=== PATIENT | male | born 1970 | race Caucasian/White ===

== ENCOUNTER 2021-02-26 15:55 | Inpatient (IN) | payer OTHER, SELFPAY ==
[2021-02-26] VITALS (9 sets, daily range): BP systolic 135–213; BP diastolic 70–114; PULSE 55–69; RESP 16–19; TEMP 36.2–36.9; O2SAT 96–100; BMI 52.7; BMI 51.6
--- NOTE | 2021-02-26 16:15 | EKG12_ITS ---
Test Reason : CP Blood Pressure : / mmHG Vent. Rate : 069 BPM Atrial Rate : 069 BPM P-R Int : 180 ms QRS Dur : 106 ms QT Int : 426 ms P-R-T Axes : 010 073 019 degrees QTc Int : 456 ms Normal sinus rhythm Normal ECG Confirmed by SASCHA TRUJILLO, BEL ([id number]), deputy editor in chief JORDAN PATTERSON ([id number]) on 02/28/2021 8:54:47 AM Referred By: ARELIS Confirmed By:BEL CAICEDO MD
--- NOTE | 2021-02-26 16:16 | EDS_ITS ---
HPI History of Present Illness Chief Complaint: Chest Pain Informant: patient Onset/Context/Timing Onset: Days (worse past 3-4 days, but has had episodically for some time prior to that) Activity at onset: rest (while lying supine especially; no other obvious known triggers) Timing: Intermittent Quality: Positive for Tightness (mostly, but today worse/persistent and feels like just pain) Location: Substernal Current Severity: Severe Maximum Severity: Severe Worsened By: - (lying supine); Not Worsened By Exertion, Movement of Arm, Movement of Torso, Eating, Palpation and Breathing Relieved By: - (sitting up) Associated Symptoms: Positive for Dyspnea (today only) and Acid Reflux (recently ate a turkey sandwich and tasted metallic); Negative for Nausea, Vomiting, Diaphoresis, Cough, Fever, Lightheadedness and Palpitations Narrative Narrative: Patient with history of coronary disease, when he had a stent placed 3 years ago he did have symptoms similar to this, however is having symptoms more with lying supine at night than with exertion in the last several days, and notes that when he eats spicy or greasy foods, he complains more of symptoms when he lies down. He had a remote CABG 13 years ago, and then a couple stents 3 years ago. Discomfort is nonpleuritic. Other than shortness of breath just today, he notes no other systemic symptoms. [facility] Medical History (Updated 02/26/21 @ 17:[address] Dequan Rico MD) CAD (coronary artery disease) Gout Hypertension Myocardial infarct Home Medications amlodipine 10 mg PO DAILY 09/25/16 [History Last Taken 09/25/16] aspirin 81 mg PO DAILY 09/25/16 [History Last Taken 09/25/16] hydrochlorothiazide 25 mg PO DAILY 09/25/16 [History Last Taken 09/25/16] metoprolol succinate 50 mg PO DAILY 09/25/16 [History Last Taken 09/25/16] clopidogrel 75 mg PO DAILY 02/26/21 [History Last Taken Unknown] losartan 25 mg PO BID 02/26/21 [History Last Taken 02/26/21] metformin 500 mg PO BID 02/26/21 [History Last Taken 02/26/21] potassium chloride 10 meq PO DAILY 02/26/21 [History Last Taken Unknown] rosuvastatin 40 mg PO DAILY 02/26/21 [History Last Taken Unknown] Allergy/AdvReac Type Severity Reaction Status Date / Time No Known Allergies Allergy Verified 02/26/21 15:59 Surgical History (Updated 02/26/21 @ 16:[address] Dequan Rico MD) Hx of CABG Social History (Updated 02/26/21 @ 16:[address] Dequan Rico MD) Smoking Status: Never smoker how long ago did patient quit smoking: Does not smoke cigarettes ROS ROS ED Constitutional Constitutional ED: Denies chills or fever(s) Eyes Eyes: Denies change in vision or diplopia ENT ENT ED: Denies rhinorrhea or sore throat Cardiovascular Cardiovascular: Reports chest pain; Denies palpitations Respiratory/Chest Respiratory/Chest: Reports dyspnea; Denies cough Gastrointestinal Gastrointestinal: Reports diarrhea; Denies abdominal pain, melena, nausea or vomiting Genitourinary Genitourinary ED: Denies dysuria or hematuria Musculoskeletal Musculoskeletal: Reports back pain and other Details: occasionally gets right low back pain separate from chest sx ; Denies neck pain Integumentary Denies abscess or rash Neurologic Neurologic: Denies headache(s), paresthesias or weakness Psychiatric Psychiatric: Denies anxiety or suicidal thoughts EXAM Physical Exam Const Vital Signs: 02/26/21 15:57 02/26/21 16:45 02/26/21 17:08 Temperature 97.1 F L Temperature Source Temporal Pulse Rate 69 61 Respiratory Rate 19 H 18 Respiratory Effort Normal Non-Labored Respiratory Pattern Normal Blood Pressure 213/114 H 142/71 H Blood Pressure Mean 147 94 Pulse Ox 100 97 97 Oxygen Delivery Method Room Air Room Air Room Air Positive well nourished, well developed and obese General Appearance ED: well developed and NAD Nutritional Appearance: obese HEENT Reports moist mucous membranes normocephalic and atraumatic Eyes PERRL and EOMs intact bilaterally Neck full ROM and supple Resp normal respiratory effort and clear to auscultation bilaterally Cardio regular rate, regular rhythm and no murmurs GI non-tender and non-distended GI Narrative: small reducible NT ventral hernia at lower CABG surg scar Auscultation: normoactive bowel sounds Palpation: soft Back/Spine no CVA tenderness General Back: other FROM Extremity normal to inspection General Extremety ED: Negative for edema, pulses abnormal or tenderness General Extremity: Negative for edema or pulses abnormal Neuro oriented x3, CN's II-XII intact bilaterally and no sensory deficits noted Sensorium / Orientation: awake and alert Motor Exam: strength 5/5 throughout Skin no rashes or lesions noted and no wounds Heart Score History: Slightly/Non-Suspicious ECG: Normal Age: >45 - <65 years Risk Factors: >/= 3 Risk Factors or History of CAD Troponin: >1 - <3 Normal Limit Score: 4 MDM MDM MDM Narrative Medical decision making narrative: While in the emergency department patient had a brief episode of heaviness and shortness of breath, but it was resolved before I could see him or we can get an EKG. His troponin returned abnormal, he has had these before, but given his history I think admission to the hospital for further risk ratification is most reasonable. Patient took his aspirin earlier today so that was held. Lab Data Attestation: I reviewed the patient's lab results. Labs: Laboratory Results - last 24 hr 02/26/21 02/26/21 16:30 16:30 WBC 9.8 RBC 5.20 Hgb 15.1 Hct 43.9 MCV 84.4 MCH 29.0 MCHC 34.4 RDW Std Deviation 41.5 RDW Coeff of Jolanta 13.5 Plt Count 304 MPV 10.3 Immature Gran % (Auto) 0.200 Neut % (Auto) 74.9 H Lymph % (Auto) 15.8 L [place] % (Auto) 5.8 Eos % (Auto) 2.8 Baso % (Auto) 0.5 Absolute Neuts (auto) 7.3 Absolute Lymphs (auto) 1.55 Nucleated RBC % 0 Sodium 139 Potassium 3.2 L Chloride 102 Carbon Dioxide 30.0 Anion Gap 7 BUN 14 Creatinine 1.23 Estim Creat Clear Calc 64.84 Est GFR (MDRD) Af Amer 80 Est GFR (MDRD) Non-Af 66 BUN/Creatinine Ratio 11.4 Glucose 183 H Calcium 9.3 Total Bilirubin 0.40 AST 23 ALT 31 Alkaline Phosphatase 95 Troponin I 0.139 H Total Protein 8.7 H Albumin 3.5 Globulin 5.2 H Albumin/Globulin Ratio 0.7 L Radiography Chest X-Ray - ED: 1 View, Read by ED Physician, No Acute Disease and Cardiomegaly Diagnostic Testing: Radiology Impression Chest X-Ray 02/26/21 16:31 IMPRESSION: No acute radiographic abnormalities. Cardiomegaly. Electronically Signed: Sanket Woodruff MD at 17:09 EDT Tel , Service support , EKG Initial EKG: Attestation: I personally reviewed and interpreted this EKG as follows: Interpretation: Sinus Rhythm and No Acute Injury Pattern Prior EKG tracings: available for review Prior: Unchanged Treatment and Re-Evaluation Vital Sign Attestation:: Blood pressure improved, vital signs stable Discharge Plan Dx/Rx/DC Orders Clinical Impression: Chest pain, unspecified, Elevated troponin Disposition Disposition: Acute Care Hospital [facility]
--- NOTE | 2021-02-26 16:31 | RAD_ITS ---
INDICATION: chest pain EXAMINATION/TECHNIQUE: X-RAY - XR Chest 1 View COMPARISON: 09/25/2016. FINDINGS: The lungs are clear. The heart is enlarged. Median sternotomy wires present. No pleural effusion or pneumothorax. No acute osseous abnormalities. RAD/Chest 1 View (Portable) IMPRESSION: No acute radiographic abnormalities. Cardiomegaly. Electronically Signed: Sanket Woodruff MD at 17:09 EDT Tel , Service support ,
[2021-02-26] MEDS: Mag Hydrox/Al Hydrox/Simeth 30 ML UDC PO (16:43)
[2021-02-26 16:53] LABS: Absolute Lymphocyte Count 1.55 X10^3/uL (0.83-4.51); Absolute Neutrophil Count 7.3 X10^3/uL (2.0-7.7); Basophil# 0.05 X10^3/uL; Basophil% 0.5 % (0-1); Eosinophil# 0.27 X10^3/uL; Eosinophils% 2.8 % (0-5); Hematocrit 43.9 % (40-54); Hemoglobin 15.1 g/dL (13.0-16.5); Lymphocyte # 1.55 X10^3/ul (0.83-4.51); Lymphocyte % 15.8 % (19-41); Mean Corp Hgb Conc 34.4 g/dL (32-36); Mean Corpuscular Volume 84.4 fL (80-94); Mean Platelet Vol. 10.3 fl (6.2-12.0); Monocyte# 0.57 X10^3/uL; Monocyte% 5.8 % (0-10); NRBC Flagged by Analyzer 0 % (0-5); Neutrophil # 7.34 X10^3/uL (2.7-7.7); Neutrophil % 74.9 % (47-70); Platelet Count 304 K/mm3 (150-450); RBC Distribution Width CV 13.5 % (11.6-14.6); RBC Distribution Width SD 41.5 fl (35.1-43.9); White Blood Count 9.8 K/mm3 (4.4-11.0)
[2021-02-26 17:06] LABS: ALB/GLOB Ratio 0.7 RATIO (0.9-2.4); AST(SGOT) 23 U/L (15-37); Alanine Aminotransfer ALT/SGPT 31 U/L (16-61); Albumin, Serum 3.5 g/dL (3.2-5.0); Alkaline Phosphatase 95 U/L (45-117); Anion Gap 7 (5-15); BUN 14 mg/dL (7-18); BUN/Creat Ratio 11.4 RATIO (10-20); Calcium,Total 9.3 mg/dL (8.5-10.1); Chloride 102 mmol/L (98-107); Creatinine, Serum 1.23 mg/dL (0.70-1.30); EST Glomerular Filtration Rate 66 mL/min (>60); Est Glom Filt Rate - Afr Amer 80 mL/min (>60); Estimated Creatinine Clearance 64.84 ml/min; Globulin 5.2 g/dL (2.2-4.2); Glucose 183 mg/dL (74-106); Potassium 3.2 mmol/L (3.5-5.1); Protein, Total 8.7 g/dL (6.4-8.2); Sodium Level 139 mmol/L (136-145)
--- NOTE | 2021-02-26 18:44 | HP.PCM.HOS_ITS ---
[facility] - General General Date of Admission: 02/26/21 Chief Complaint: Chest pain. HPI Narrative WILBUR QUINTEROS, is a 51 M with past medical history as mentioned above presented to the emergency room because of chest pain. Her symptoms started around 3 to 4 days ago with chest pain, retrosternal chest pain, intermittent, described as chest heaviness, 4-5 out of 10 in severity, associated with mild shortness of breath and without aggravating relieving factors. He mentioned that initially, it was intermittent but since today morning, it was more persistent and worse than the last 3 days. He denies dizziness, syncope or presyncope. He denied nausea, vomiting or diaphoresis. He denied fever or chills. Currently, he is chest pain-free. His vital signs are stable. His routine blood work was remarkable for potassium of 3.2, otherwise normal. EKG revealed normal sinus rhythm, normal RI interval, normal QRS, no acute segment changes. Troponin is 0.139. Chest x-ray showed no acute findings. He is being admitted for unstable angina/chest pain/abnormal cardiac enzymes for evaluation and treatment. [facility] Medical History (Updated 02/26/21 @ 18:[address] Caitie Koch MD) CAD (coronary artery disease) Gout Hypertension Myocardial infarct Home Medications amlodipine 10 mg PO DAILY 09/25/16 [History Last Taken 09/25/16] aspirin 81 mg PO DAILY 09/25/16 [History Last Taken 09/25/16] hydrochlorothiazide 25 mg PO DAILY 09/25/16 [History Last Taken 09/25/16] metoprolol succinate 50 mg PO DAILY 09/25/16 [History Last Taken 09/25/16] clopidogrel 75 mg PO DAILY 02/26/21 [History Last Taken Unknown] losartan 25 mg PO BID 02/26/21 [History Last Taken 02/26/21] metformin 500 mg PO BID 02/26/21 [History Last Taken 02/26/21] potassium chloride 10 meq PO DAILY 02/26/21 [History Last Taken Unknown] rosuvastatin 40 mg PO DAILY 02/26/21 [History Last Taken Unknown] Allergy/AdvReac Type Severity Reaction Status Date / Time No Known Allergies Allergy Verified 02/26/21 15:59 no significant family history Surgical History (Updated 02/26/21 @ 16:[address] Dequan Rico MD) Hx of CABG Social History (Updated 02/26/21 @ 18:[address] Caitie Koch MD) Smoking Status: Never smoker how long ago did patient quit smoking: Does not smoke cigarettes alcohol intake: never ROS Constitutional Constitutional: Denies anorexia, chills, fatigue, fever(s) or malaise Eyes Eyes: Denies blurry vision, change in eye color, change in vision, double vision or eye pain ENT HEENT: Denies ear pain, epistaxis, headache(s), nasal congestion, post nasal drip or sore throat Cardiovascular Cardiovascular: Reports chest pain; Denies dyspnea on exertion, edema, lightheadedness, orthopnea, palpitations, paroxysmal nocturnal dyspnea or syncope Respiratory/Chest Respiratory/Chest: Reports shortness of breath at rest; Denies cough, dyspnea, hemoptysis, productive cough, shortness of breath with exertion or wheezing Gastrointestinal Gastrointestinal: Denies abdominal pain, constipation, diarrhea, hematemesis, hematochezia, melena, nausea or vomiting Genitourinary Genitourinary: Denies burning urination, dysuria, hematuria, urinary hesitancy or urinary urgency Musculoskeletal Musculoskeletal: Denies arthralgias, back pain, joint pain, joint swelling, myalgias or neck pain Neurologic Neurologic: Denies confusion, dizziness, focal weakness, headache(s), numbness, paresthesias, seizures, tingling or tremor(s) Psychiatric Psychiatric: Denies anxiety, depression, hallucinations, homicidal ideation or suicidal ideation Endocrine Endocrinology: Denies change in body appearance, cold intolerance, heat intolerance, polydipsia or polyuria Hematologic/Lymphatic Hematologic/Lymphatic: Denies easy bleeding, easy bruising or lymphadenopathy Allergic/Immunologic Allergic/Immunologic: Denies itchy eyes, rhinitis, throat swelling, tongue swelling, hives, urticaria or wheezing Vital Signs Vital Signs Vital Signs: 02/26/21 15:57 02/26/21 16:45 02/26/21 17:08 Temperature 97.1 F L Temperature Source Temporal Pulse Rate 69 61 Respiratory Rate 19 H 18 Respiratory Effort Normal Non-Labored Respiratory Pattern Normal Blood Pressure 213/114 H 142/71 H Blood Pressure Mean 147 94 Pulse Ox 100 97 97 Oxygen Delivery Method Room Air Room Air Room Air 02/26/21 18:35 Temperature 97.9 F Temperature Source Temporal Pulse Rate 56 L Respiratory Rate 17 Respiratory Effort Respiratory Pattern Blood Pressure 135/80 H Blood Pressure Mean 98 Pulse Ox 96 Oxygen Delivery Method Room Air Physical Exam Const alert, oriented x3, no apparent distress and no limitations General Appearance: cooperative, comfortable and well kempt HEENT normocephalic, head/scalp atraumatic and moist oral mucous membranes Head and Scalp: normocephalic and atraumatic Eyes PERRL, EOMs intact bilaterally, conjunctivae normal and no scleral icterus General Eye: normal appearance of both eyes Periorbital: periorbital findings normal Neck no lymphadenopathy, supple, no meningeal signs, no JVD and no carotid bruits General: trachea midline Thyroid: thyroid normal Resp normal respiratory effort, normal air movement and clear to auscultation bilaterally Auscultation: Negative for crackles, rales, rhonchi or wheezes Cardio regular rate, regular rhythm, S1 normal heart sound, S2 normal heart sound, no murmurs and no JVD Peripheral Pulses: pulses 2+ throughout GI normal to inspection, nondistended, normoactive bowel sounds, soft to palpation, non-tender and non-distended; Negative for hepatosplenomegaly Auscultation: normoactive bowel sounds Extremity normal to inspection, full ROM and no clubbing, cyanosis or edema Skin no rashes or lesions noted, no wounds and no petechiae Neuro oriented x3, CN's II-XII intact bilaterally and moves all extremities Sensorium / Orientation: alert Speech: speech normal Motor Exam: strength 5/5 throughout Psych mental status grossly normal, affect normal and denies hallucinations Lab / Micro Data Result Diagrams: 02/26/21 16:30 02/26/21 16:30 Labs: Laboratory Results - last 24 hr 02/26/21 02/26/21 16:30 16:30 WBC 9.8 RBC 5.20 Hgb 15.1 Hct 43.9 MCV 84.4 MCH 29.0 MCHC 34.4 RDW Std Deviation 41.5 RDW Coeff of Jolanta 13.5 Plt Count 304 MPV 10.3 Immature Gran % (Auto) 0.200 Neut % (Auto) 74.9 H Lymph % (Auto) 15.8 L [place] % (Auto) 5.8 Eos % (Auto) 2.8 Baso % (Auto) 0.5 Absolute Neuts (auto) 7.3 Absolute Lymphs (auto) 1.55 Nucleated RBC % 0 Sodium 139 Potassium 3.2 L Chloride 102 Carbon Dioxide 30.0 Anion Gap 7 BUN 14 Creatinine 1.23 Estim Creat Clear Calc 64.84 Est GFR (MDRD) Af Amer 80 Est GFR (MDRD) Non-Af 66 BUN/Creatinine Ratio 11.4 Glucose 183 H Calcium 9.3 Total Bilirubin 0.40 AST 23 ALT 31 Alkaline Phosphatase 95 Troponin I 0.139 H Total Protein 8.7 H Albumin 3.5 Globulin 5.2 H Albumin/Globulin Ratio 0.7 L Radiology Impression Chest X-Ray 02/26/21 16:31 IMPRESSION: No acute radiographic abnormalities. Cardiomegaly. Electronically Signed: Sanket Woodruff MD at 17:09 EDT Tel , Service support , Assessment & Plan Assessment/Plan (1) Unstable angina: Status: Acute Code(s): I20.0 - Unstable angina (2) Hypertension: Status: Chronic Code(s): I10 - Essential (primary) hypertension (3) CAD (coronary artery disease): Status: Acute Code(s): I25.10 - Atherosclerotic heart disease of [place] coronary artery without angina pectoris (4) Chest pain, unspecified: Status: Acute Code(s): R07.9 - Chest pain, unspecified (5) Elevated troponin: Status: Acute Code(s): R77.8 - Other specified abnormalities of plasma proteins Plan: This is a 51 years old male patient presented to the emergency room because of chest pain, found to have borderline elevated troponin and is being admitted for evaluation and treatment. #1 chest pain/abnormal troponin/unstable angina: EKG reviewed, unremarkable. Troponin is 0.139. Chest x-ray without acute findings. Patient did have a history of CAD status post CABG 12 years ago and stents 3 years ago. Plan: Admit to PCU, cardiac monitoring, serial cardiac enzymes, 2D echocardiogram, cardiology consult, continue aspirin and Plavix, continue losartan and statins, start therapeutic Lovenox twice daily, IV fluids, Tylenol as needed, sublingual nitro as needed, repeat CBC and BMP tomorrow morning. #2 CAD status post CABG and stents: Plan as above, continue aspirin, Plavix, losartan, metoprolol and statins. #3 hypertension: Blood pressure stable, continue Norvasc, metoprolol and losartan. #4 hyperlipidemia: Continue statins. #5 prediabetes: He is only on Metformin. Plan for ADA diet, Accu-Cheks, sliding scale, hold Metformin for now. #6 DVT prophylaxis: Therapeutic subcutaneous twice daily as above. This note was generated with [employer] software. It may contain incorrect words, spelling, and punctuation that were not noted in checking the note before signing.
--- NOTE | 2021-02-26 19:46 | ECHOCS_ITS ---
Reason For Study: ABN EKG Procedure This was a 2D Doppler, Color Flow transthoracic echocardiogram. The study was technically difficult. Contrast injection was performed. Exam performed portable in patient room. Left Ventricle Based upon the 2D echocardiographic and contrast enhanced images obtained there appears to be grossly normal left ventricular size, wall motion, and systolic function. The estimated ejection fraction is 55 %. No evidence for diastolic dysfunction. Right Ventricle Based upon the 2D echocardiographic images obtained there appears to be grossly normal right ventricular size and systolic function. Atria The left atrium is mildly enlarged. The right atrium is not well visualized. No doppler evidence for ASD. Mitral Valve There is no mitral annular calcification. Normal mitral valve. Trivial mitral valve insufficiency. Tricuspid Valve Normal tricuspid valve. Trivial tricuspid valve insufficiency. Unable to estimate RV systolic pressure/pulmonary artery pressure due to technically difficult study. Aortic Valve Trisinus/trileaflet aortic valve. Normal aortic valve. Pulmonic Valve The pulmonic valve is not well visualized. Great Vessels Normal sized aortic root. Pericardium/Pleural No pericardial effusion. Medication Diluted definity 5ml given slow IV push to enhance endocardial definition. MMode/2D Measurements & Calculations LVIDd: 5.2 cm IVSd: 1.3 cm Ao root diam: 3.8 cm LVIDs: 3.5 cm LVPWd: 1.3 cm FS: 32.1 % LAV(MOD-bp): 79.3 ml LVAd ap4: 31.1 cm2 SV(MOD-sp4): 57.7 ml LAV(MOD-bp) Indexed: 32.5 ml/m2 LVLd ap4: 8.3 cm LAV(MOD-sp2): 71.9 ml EDV(MOD-sp4): 98.7 ml LAV(MOD-sp4): 82.8 ml EDV(sp4-el): 99.4 ml LVAs ap4: 18.6 cm2 LVLs ap4: 6.9 cm ESV(MOD-sp4): 41.0 ml ESV(sp4-el): 42.3 ml EF(MOD-sp4): 58.4 % EF(sp4-el): 57.5 % SV(sp4-el): 57.1 ml LA A4 area: 27.1 cm2 LA dimension(2D): 4.7 cm Time Measurements MV dec time: 0.17 sec Doppler Measurements & Calculations MV E max james: 105.8 cm/sec Lat Peak E' James: 9.9 cm/sec Med Peak E' James: 9.1 cm/sec MV A max james: 95.8 cm/sec E/E' lat: 10.6 E/E' med: 11.6 MV E/A: 1.1 Ao V2 max: 127.3 cm/sec LV V1 max: 103.9 cm/sec Ao max P.5 mmHg LV V1 max P.3 mmHg ECHO/Echo Complete W/ Contrast Interpretation Summary The study was technically difficult. Contrast injection was performed. Based upon the 2D echocardiographic and contrast enhanced images obtained there appears to be grossly normal left ventricular size, wall motion, and systolic function. The estimated ejection fraction is 55 %. The left atrium is mildly enlarged. Trivial mitral valve insufficiency. Trivial tricuspid valve insufficiency. Unable to estimate RV systolic pressure/pulmonary artery pressure due to techni shira difficult study. No evidence for diastolic dysfunction. Ordering Physician: Caitie Koch Performed By: Mabel Peterson RDCS, RVT
[2021-02-26] MEDS: Potassium Chloride Oral Tablet 20 MEQ 60 MEQ PO (20:02)
[2021-02-26] MEDS: 0.9% Normal Saline 1,000 ML 75 ML IV (20:02)
--- NOTE | 2021-02-26 20:21 | EKG12_ITS ---
Test Reason : CP ADMISSION Blood Pressure : / mmHG Vent. Rate : 054 BPM Atrial Rate : 054 BPM P-R Int : 186 ms QRS Dur : 098 ms QT Int : 442 ms P-R-T Axes : 003 064 087 degrees QTc Int : 419 ms Sinus bradycardia Nonspecific T wave abnormality Abnormal ECG Confirmed by SASCHA TRUJILLO, BEL ([id number]), purchase request editor JORDAN PATTERSON ([id number]) on 02/28/2021 9:10:13 AM Referred By: MAX Confirmed By:BEL CAICEDO MD
[2021-02-26] MEDS: Enoxaparin 150 MG/ML Syringe SC (22:04)
[2021-02-26] MEDS: Atorvastatin Calcium 80 MG Tablet PO (22:05)
[2021-02-26] MEDS: Losartan Potassium 25 MG Tablet PO (22:05)
[2021-02-26 22:16] LABS: Bedside Glucose 113 mg/dL (70-110)
[2021-02-27] VITALS (12 sets, daily range): BP systolic 125–140; BP diastolic 58–81; PULSE 50–65; RESP 14–18; TEMP 36.2–37.2; O2SAT 94–98
[2021-02-27 05:38] LABS: Absolute Lymphocyte Count 1.69 X10^3/uL (0.83-4.51); Absolute Neutrophil Count 6.8 X10^3/uL (2.0-7.7); Basophil# 0.04 X10^3/uL; Basophil% 0.4 % (0-1); Eosinophil# 0.24 X10^3/uL; Eosinophils% 2.6 % (0-5); Hematocrit 40.5 % (40-54); Hemoglobin 13.3 g/dL (13.0-16.5); Lymphocyte # 1.69 X10^3/ul (0.83-4.51); Lymphocyte % 18.1 % (19-41); Mean Corp Hgb Conc 32.8 g/dL (32-36); Mean Corpuscular Hgb 28.1 pg (27.0-32.0); Mean Corpuscular Volume 85.6 fL (80-94); Mean Platelet Vol. 10.4 fl (6.2-12.0); Monocyte# 0.58 X10^3/uL; Monocyte% 6.2 % (0-10); NRBC Flagged by Analyzer 0 % (0-5); Neutrophil # 6.79 X10^3/uL (2.7-7.7); Neutrophil % 72.5 % (47-70); Platelet Count 264 K/mm3 (150-450); RBC Distribution Width CV 13.6 % (11.6-14.6); RBC Distribution Width SD 42.1 fl (35.1-43.9); Red Blood Count 4.73 M/mm3 (4.6-6.2); White Blood Count 9.4 K/mm3 (4.4-11.0)
[2021-02-27 05:59] LABS: Anion Gap 5 (5-15); BUN 12 mg/dL (7-18); BUN/Creat Ratio 12.3 RATIO (10-20); Calcium,Total 8.5 mg/dL (8.5-10.1); Chloride 106 mmol/L (98-107); Creatinine, Serum 0.98 mg/dL (0.70-1.30); EST Glomerular Filtration Rate 86 mL/min (>60); Est Glom Filt Rate - Afr Amer 104 mL/min (>60); Estimated Creatinine Clearance 81.38 ml/min; Glucose 106 mg/dL (74-106); Potassium 3.7 mmol/L (3.5-5.1); Sodium Level 141 mmol/L (136-145)
[2021-02-27 06:36] LABS: Bedside Glucose 116 mg/dL (70-110)
[2021-02-27] MEDS: Clopidogrel Bisulfate 75 MG Tablet PO (08:38)
[2021-02-27] MEDS: Losartan Potassium 25 MG Tablet PO ×2 (08:39→20:44)
[2021-02-27] MEDS: Aspirin 81 MG TAB.CHEW PO (08:39)
--- NOTE | 2021-02-27 09:12 | CON.PCM.CA_ITS ---
Assessment & Plan Assessment/Plan (1) Unstable angina: Status: Acute Code(s): I20.0 - Unstable angina Plan: He does have evidence of unstable angina with presentation of new onset chest discomfort. My recommendation at this time would be for him to continue the current therapy and follow schedule a left heart catheterization. The risk benefits alternatives have been explained to him he understands and agrees to proceed. Depending on the findings further recommendations will be made. (2) Hypertension: Status: Chronic Code(s): I10 - Essential (primary) hypertension Plan: He had presented with elevated blood pressure. To be better at this time the c urrent medications with the amlodipine, hydrochlorothiazide, dose 10. No changes to be made with respect to the above. (3) CAD (coronary artery disease): Status: Acute Code(s): I25.10 - Atherosclerotic heart disease of [place] coronary artery without angina pectoris Plan: He does have a history of coronary artery disease and is status post previous angioplasty and stenting. My recommendation is for us to continue the current medical therapy and depending on the findings further recommendations will be made. The plan is for him to undergo a cardiac catheterization later today. HPI Consult Data Date of Consult: 02/27/21 HPI Narrative HPI Narrative: WILBUR QUINTEROS, is a 51 M who presents with chest heaviness. He does have a past medical history of coronary artery bypass surgery over 12 years ago. He presented 3 years ago here and was transferred to [facility] for a cardiac catheterization and stent placement. He says that about 3 to 4 days ago he started having chest discomfort, which was retrosternal, described as a heaviness and 4 out of 10 in severity. There was associated mild shortness of breath with no aggravating or relieving factors. He has had no dizziness or diaphoresis no near syncope or syncope. He was evaluated and had a normal EKG with normal intervals. His cardiac enzymes were mildly abnormal. Cardiology was consulted for further evaluation and management. [facility] Medical History Asthma CAD (coronary artery disease) Gout High cholesterol Hypertension Myocardial infarct Non-smoker Home Medications amlodipine 10 mg PO DAILY 09/25/16 [History Last Taken 09/25/16] aspirin 81 mg PO DAILY 09/25/16 [History Last Taken 09/25/16] hydrochlorothiazide 25 mg PO DAILY 09/25/16 [History Last Taken 09/25/16] metoprolol succinate 50 mg PO DAILY 09/25/16 [History Last Taken 09/25/16] clopidogrel 75 mg PO DAILY 02/26/21 [History Last Taken Unknown] losartan 25 mg PO BID 02/26/21 [History Last Taken 02/26/21] metformin 500 mg PO BID 02/26/21 [History Last Taken 02/26/21] potassium chloride 10 meq PO DAILY 02/26/21 [History Last Taken Unknown] rosuvastatin 40 mg PO DAILY 02/26/21 [History Last Taken Unknown] Allergy/AdvReac Type Severity Reaction Status Date / Time No Known Allergies Allergy Verified 02/26/21 15:59 Surgical History History of heart artery stent Hx of CABG Social History Smoking Status: Never smoker how long ago did patient quit smoking: Does not smoke cigarettes alcohol intake: never ROS Constitutional Constitutional: Reports as per HPI Eyes Eyes: Reports as per HPI ENT HEENT: Reports as per HPI Cardiovascular Cardiovascular: Reports chest pain at rest, chest pain with activity, dyspnea on exertion and fatigue Respiratory/Chest Respiratory/Chest: Reports systems reviewed and no addt'l complaints, except as documented Gastrointestinal Gastrointestinal: Reports systems reviewed and no addt'l complaints, except as documented Genitourinary Genitourinary: Reports systems reviewed and no addt'l complaints, except as documented Musculoskeletal Musculoskeletal: Reports systems reviewed and no addt'l complaints, except as documented Integumentary Integumentary: Reports systems reviewed and no addt'l complaints, except as documented Neurologic Neurologic: Reports systems reviewed and no addt'l complaints, except as documented and as per HPI Psychiatric Psychiatric: Reports systems reviewed and no addt'l complaints, except as documented Endocrine Endocrinology: Reports systems reviewed and no addt'l complaints, except as documented Hematologic/Lymphatic Hematologic/Lymphatic: Reports systems reviewed and no addt'l complaints, except as documented
--- NOTE | 2021-02-27 09:12 | PCM.PN.HOSP ---
Subjective Subjective: Patient is a 51-year-old gentleman with past medical history significant for coronary artery disease with previous CABG and subsequent stent placement who presented with chest pain and elevated troponin. An assessment of acute non-STEMI made treatment initiated protocol admitted to monitored nursing floor with consultation made to cardiology Objective Data Objective Data Vital Signs: Vital Signs Temp Pulse Resp BP Pulse Ox 98.9 F 54 L 14 140/81 H 96 02/27/21 07:54 02/27/21 07:54 02/27/21 07:54 02/27/21 07:54 02/27/21 07:54 Oxygen Delivery Method Room Air Weight: 320 lb Body Mass Index (BMI) 51.6 Intake & Output: Intake and Output for Last 24 Hours 02/25/21 02/26/21 02/27/21 23:59 23:59 23:59 Intake Total 240 / 240 Balance 240 / 240 Lab / Micro Data Result Diagrams: 02/27/21 05:20 02/27/21 05:20 Radiography Diagnostic Testing: Radiology Impression Chest X-Ray 02/26/21 16:31 IMPRESSION: No acute radiographic abnormalities. Cardiomegaly. Electronically Signed: Sanket Woodruff MD at 17:09 EDT Tel , Service support , Physical Exam Const alert, oriented x3 and no apparent distress General Appearance: cooperative and comfortable HEENT head/scalp atraumatic and moist oral mucous membranes Eyes conjunctivae normal and no scleral icterus Neck no lymphadenopathy, supple, no meningeal signs and no JVD General: trachea midline Thyroid: thyroid normal Resp normal respiratory effort and normal air movement Auscultation: Negative for crackles, rales, rhonchi or wheezes Cardio regular rate, regular rhythm, S1 normal heart sound and S2 normal heart sound Peripheral Pulses: pulses 2+ throughout GI normal to inspection, nondistended, normoactive bowel sounds Auscultation: normoactive bowel sounds Extremity normal to inspection, full ROM and no clubbing, cyanosis or edema Skin no rashes or lesions noted, no wounds and no petechiae Neuro oriented x3, CN's II-XII intact bilaterally and moves all extremities Sensorium / Orientation: alert Speech: speech normal Motor Exam: strength 5/5 throughout Psych mental status grossly normal and affect normal Assessment & Plan Assessment/Plan (1) Unstable angina: Status: Acute Code(s): I20.0 - Unstable angina (2) Hypertension: Status: Chronic Code(s): I10 - Essential (primary) hypertension (3) CAD (coronary artery disease): Status: Acute Code(s): I25.10 - Atherosclerotic heart disease of [place] coronary artery without angina pectoris (4) Chest pain, unspecified: Status: Acute Code(s): R07.9 - Chest pain, unspecified (5) Elevated troponin: Status: Acute Code(s): R77.8 - Other specified abnormalities of plasma proteins Plan: Patient is a 51-year-old gentleman with past medical history significant for coronary artery disease with previous CABG and subsequent stent placement who presented with chest pain and elevated troponin. An assessment of acute non-STEMI made treatment initiated protocol admitted to monitored nursing floor with consultation made to cardiology 1. Acute non-STEMI ?Patient admitted to monitored bed treatment initiated per protocol with therapeutic Lovenox, ARB, statin therapy and beta-blockers. Consultation was placed to cardiology patient seen by Dr. Barroso with plans for patient to undergo left heart catheterization with intervention if needed 2. Coronary artery disease ?Status post CABG with subsequent stent placement patient is on recommended medications 3. Morbid obesity - With a BMI of 51.6 patient was counseled on weight reduction 4. Hypertension - Blood pressure controlled, home medications continued with dose adjustment as needed 5. Dyslipidemia -Patient is on statin therapy, continued at home dose 6. Diabetes mellitus type II -patient's oral hypoglycemics held. Placed on long acting insulin, Accu-Cheks a.c. and at bedtime and covered with sliding scale insulin 7. DVT prophylaxis - On enoxaparin Visit Charges Inpatient E&M: [id number] [facility] Hosp L3
--- NOTE | 2021-02-27 09:23 | CASEMGMT ---
Per [facility] website, the following tertiary facilities are in network: [facility], [place], [facility], [facility], [facility] and .
[2021-02-27] MEDS: hydroCHLOROthiazide 25 MG Tablet PO (11:50)
[2021-02-27] MEDS: Potassium Chloride Oral Tablet 10 MEQ PO (11:51)
[2021-02-27] MEDS: amLODIPine 10 MG Tablet PO (11:51)
[2021-02-27] MEDS: Enoxaparin 150 MG/ML Syringe SC ×2 (11:52→20:43)
[2021-02-27 12:01] LABS: Bedside Glucose 112 mg/dL (70-110)
--- NOTE | 2021-02-27 13:07 | CASEMGMT ---
Assessment- SW completed assessment with patient. SW also confirmed addresses and phone numbers Living situation- Patient lives alone in a 2 story home with a couple entry steps. PCP: Mikhail Loredo Specialists: None Pharmacy: [facility] DME: walker and cane ADL's/IADL's: Patient is independent in all ADL's and IADL's. He drives. He periodically may use his cane or walker when his gout flares up. Past SNF/rehab: None Past HH: None LW: None POA: None Plan: Patient will likely be discharged home with no needs. CM following for d/c meds. Ligia Snyder HAIRSPRING INSPECTOR ALEXANDER
--- NOTE | 2021-02-27 13:31 | NURSING ---
Student nurse documentation reviewed.
[2021-02-27 16:40] LABS: Bedside Glucose 125 mg/dL (70-110)
[2021-02-27] MEDS: Atorvastatin Calcium 80 MG Tablet PO (20:43)
[2021-02-27 20:56] LABS: Bedside Glucose 147 mg/dL (70-110)
[2021-02-28] VITALS (22 sets, daily range): BP systolic 115–153; BP diastolic 50–77; PULSE 48–69; RESP 15–18; TEMP 36.4–36.9; O2SAT 95–100
--- NOTE | 2021-02-28 05:55 | EKG12_ITS ---
Test Reason : AM EKG Blood Pressure : / mmHG Vent. Rate : 054 BPM Atrial Rate : 054 BPM P-R Int : 184 ms QRS Dur : 102 ms QT Int : 464 ms P-R-T Axes : 015 067 -05 degrees QTc Int : 440 ms Sinus bradycardia Poor R wave progression Nonspecific T wave abnormality Confirmed by SASCHA TRUJILLO, BEL ([id number]), editorial cartoonist JORDAN PATTERSON ([id number]) on 03/01/2021 9:07:30 AM Referred By: JIMENEZ Confirmed By:BEL CAICEDO MD
[2021-02-28 06:34] LABS: Absolute Lymphocyte Count 1.49 X10^3/uL (0.83-4.51); Basophil# 0.05 X10^3/uL; Basophil% 0.6 % (0-1); Differential Indicated SCAN CRITERIA MET; Eosinophil# 0.24 X10^3/uL; Eosinophils% 2.9 % (0-5); Hemoglobin 14.3 g/dL (13.0-16.5); Lymphocyte # 1.49 X10^3/ul (0.83-4.51); Lymphocyte % 17.8 % (19-41); Mean Corp Hgb Conc 32.5 g/dL (32-36); Mean Corpuscular Hgb 29.1 pg (27.0-32.0); Mean Corpuscular Volume 89.4 fL (80-94); Mean Platelet Vol. 10.5 fl (6.2-12.0); Monocyte% 7.2 % (0-10); NRBC Flagged by Analyzer 0 % (0-5); Neutrophil # 5.97 X10^3/uL (2.7-7.7); Neutrophil % 71.3 % (47-70); POSITIVE COUNT YES; Platelet Count 225 K/mm3 (150-450); RBC Distribution Width CV 13.7 % (11.6-14.6); RBC Distribution Width SD 44.5 fl (35.1-43.9); Red Blood Count 4.92 M/mm3 (4.6-6.2); White Blood Count 8.4 K/mm3 (4.4-11.0)
[2021-02-28] MEDS: Clopidogrel Bisulfate 75 MG Tablet PO (06:35)
[2021-02-28] MEDS: amLODIPine 10 MG Tablet PO (06:35)
[2021-02-28] MEDS: Losartan Potassium 25 MG Tablet PO ×2 (06:35→22:42)
[2021-02-28] MEDS: Metoprolol(XL)Succ 50 MG Tablet PO (06:35)
[2021-02-28] MEDS: Aspirin 81 MG TAB.CHEW PO (06:35)
[2021-02-28 06:45] LABS: Bedside Glucose 122 mg/dL (70-110)
[2021-02-28 07:00] LABS: Anion Gap 6 (5-15); BUN 13 mg/dL (7-18); BUN/Creat Ratio 13.2 RATIO (10-20); Calcium,Total 8.7 mg/dL (8.5-10.1); Chloride 104 mmol/L (98-107); Creatinine, Serum 0.98 mg/dL (0.70-1.30); EST Glomerular Filtration Rate 86 mL/min (>60); Est Glom Filt Rate - Afr Amer 104 mL/min (>60); Estimated Creatinine Clearance 81.38 ml/min; Glucose 104 mg/dL (74-106); Magnesium 2.1 mg/dL (1.6-2.6); Potassium 3.8 mmol/L (3.5-5.1); Sodium Level 135 mmol/L (136-145)
--- NOTE | 2021-02-28 09:34 | NURSING ---
Returns from cardiac catheterization
--- NOTE | 2021-02-28 10:00 | EKG12_ITS ---
Test Reason : AM EKG Blood Pressure : / mmHG Vent. Rate : 053 BPM Atrial Rate : 053 BPM P-R Int : 188 ms QRS Dur : 106 ms QT Int : 460 ms P-R-T Axes : 015 052 -10 degrees QTc Int : 431 ms Sinus bradycardia Nonspecific T wave abnormality Abnormal ECG When compared with ECG of 28-FEB-2021 10:21, MANUAL COMPARISON REQUIRED, DATA IS UNCONFIRMED Confirmed by ALISTAIR TRUJILLO, YARELIS ([id number]), editorial writer JORDAN PATTERSON ([id number]) on 03/05/2021 1:23:09 PM Referred By: MARILYN Confirmed By:UMU SAINZ MD
--- NOTE | 2021-02-28 10:20 | CRPHASE1 ---
Patient Communication Former Patient:: Phase II PHII Cardiac Rehab Discussed with Patient:: Yes Guide to Cardiac Rehab Given to Patient:: Yes Cardiac Rehab Facility Choice List Given to Patient:: Yes Choice Program [facility] CR PHII:: Communication Given to CR Customer Account Technician:: Emili More Refer Phase II Cardiac Rehab:: Yes Sessions:: 36 sessions - 3 days/wk, 12 weeks Cardiac Rehabilitation Info Cardiac Rehabilitation Program Information: Cardiac Rehabilitation is important for patients like you who are recovering from a heart problem. Cardiac rehabilitation programs are recognized as integral to the continued care of the patient with coronary heart disease. The cardiac rehabilitation program is designed to optimize a patient's physical, psychological, and social functioning. Health senior care assistant work in cardiac rehabilitation programs and assist you with getting the treatments you need to get stronger and healthier - like exercise, healthy eating habits, and medications. Cardiac rehabilitation has been show to help people with heart problems live longer and have better life enjoyment than people who do not go to cardiac rehabilitation. Please contact the Cardiac Rehabilitation Program at [facility] at in two weeks if you have not heard from them.
--- NOTE | 2021-02-28 10:21 | CRPH1.INST_ITS ---
General Education CAD and cardiac anatomy and function:: Patient communicates acknowledgment, Family communicates acknowledgment, Needs reinforcement Explanation of diagnoses and procedures:: Patient communicates acknowledgment, Family communicates acknowledgment, Needs reinforcement Sign/Symptoms of AL:: Patient communicates acknowledgment, Family communicates acknowledgment, Needs reinforcement Antiplatelet therapy: Patient communicates acknowledgment, Family communicates acknowledgment, Needs reinforcement Proper use of NTG-SL: Patient communicates acknowledgment, Family communicates acknowledgment, Needs reinforcement Emergency procedures and activation of EMS: Patient communicates acknowledgment, Family communicates acknowledgment, Needs reinforcement Compliance of all prescribed medications: Patient communicates acknowledgment, Family communicates acknowledgment, Needs reinforcement Smoking Patient Nicotine/Smoking Risk Factors Are:: Smokeless tobacco Recommendations Include:: Smoking cessation strategies/Smoking packet, Second- hand smoke recommendation, Participation in a smoking cessation program Nicotine/Smoking Response Code:: Patient communicates acknowledgment, Family communicates acknowledgment, Needs reinforcement Dyslipidemia Patient Dyslipidemia Risk Factors Are:: Total Cholesterol, Triglycerides, HDL, LDL Recommendations Include:: Lipid profile not available, Reviewed NCEP/ATP guidelines, Therapeutic Lifestyle Change dietary guidelines Dyslipidemia Response Code:: Patient communicates acknowledgment, Family communicates acknowledgment, Needs reinforcement Overweight/Obesity Patient Overweight/Obesity Risk Factors Are:: Obesity - > or = 30 Recommendations Include:: Weight loss of 5-10%, Reduced calorie diet, Exercise 5-7 times/week Overweight/Obesity:: Patient communicates acknowledgment, Family communicates acknowledgment, Needs reinforcement Hypertension Recommendations Include:: BP <130/80 if diabetic, DASH dietary guidelines, Decrease/maintain normal body weight, Moderation of ETOH Hypertension:: Patient communicates acknowledgment, Needs reinforcement Heart Disease Patient Heart Disease Risk Factors Are:: Family history of heart disease < 65 years old, Previous cardiac event Recommendations Include:: Educated family members of their risk, Educated family members of importance of prevention of heart disease Heart Disease Response Code:: Patient communicates acknowledgment, Family communicates acknowledgment, Needs reinforcement Diabetes Patient Diabetes Risk Factors Are:: Elevated blood sugars Recommendations Include:: Maintain fasting blood sugars 70-110 md/dL, Maintain HgbA1c of 6% or less, Monitor blood sugar as prescribed, Diabetic dietary guidelines, Decrease/maintain body weight Diabetes:: Patient communicates acknowledgment, Family communicates acknowledgment, Needs reinforcement Sedentary Recommendations Include:: Aerobic exercise 5-7 times/week for 20-30 minutes continuously, Benefits of regular exercise, Discussed home walking program, Monitored Outpatient Cardiac Rehab Sedentary Response Code:: Patient communicates acknowledgment, Family communicates acknowledgment, Needs reinforcement Stress Patient Stress Risk Factors Are:: Patient denies stress as a risk factor
--- NOTE | 2021-02-28 10:57 | PCM.PN.CARD ---
Subjective Subjective: Patient seen and evaluated. Appears to be doing well. Underwent cardiac catheterization today. Objective Data Vital Signs: Vital Signs Temp Pulse Resp BP Pulse Ox 97.9 F 50 L 16 122/76 H 96 02/28/21 06:32 02/28/21 10:45 02/28/21 10:45 02/28/21 10:45 02/28/21 10:51 Oxygen Delivery Method Room Air Weight: 320 lb 0.015 oz Body Mass Index (BMI) 51.6 Intake & Output: Intake and Output for Last 24 Hours 02/26/21 02/27/21 02/28/21 23:59 23:59 23:59 Intake Total 240 / 240 1360 / 1720 360 / 360 Balance 240 / 240 1360 / 1720 360 / 360 Lab / Micro Data Result Diagrams: 02/28/21 06:00 02/28/21 06:00 Labs: Laboratory Results - last 24 hr 02/27/21 02/27/21 02/27/21 11:47 16:36 20:41 WBC RBC Hgb Hct MCV MCH MCHC RDW Std Deviation RDW Coeff of Jolanta Plt Count MPV Immature Gran % (Auto) Neut % (Auto) Lymph % (Auto) [place] % (Auto) Eos % (Auto) Baso % (Auto) Absolute Neuts (auto) Absolute Lymphs (auto) Nucleated RBC % Sodium Potassium Chloride Carbon Dioxide Anion Gap BUN Creatinine Estim Creat Clear Calc Est GFR (MDRD) Af Amer Est GFR (MDRD) Non-Af BUN/Creatinine Ratio Glucose Calcium Magnesium POC Glucose 112 H 125 H 147 H 02/28/21 02/28/21 02/28/21 06:00 06:00 06:38 WBC 8.4 RBC 4.92 Hgb 14.3 Hct 44.0 MCV 89.4 MCH 29.1 MCHC 32.5 RDW Std Deviation 44.5 H RDW Coeff of Jolanta 13.7 Plt Count 225 MPV 10.5 Immature Gran % (Auto) 0.200 Neut % (Auto) 71.3 H Lymph % (Auto) 17.8 L [place] % (Auto) 7.2 Eos % (Auto) 2.9 Baso % (Auto) 0.6 Absolute Neuts (auto) 6.0 Absolute Lymphs (auto) 1.49 Nucleated RBC % 0 Sodium 135 L Potassium 3.8 Chloride 104 Carbon Dioxide 25.0 Anion Gap 6 BUN 13 Creatinine 0.98 Estim Creat Clear Calc 81.38 Est GFR (MDRD) Af Amer 104 Est GFR (MDRD) Non-Af 86 BUN/Creatinine Ratio 13.2 Glucose 104 Calcium 8.7 Magnesium 2.1 POC Glucose 122 H Cardiology Labs/Tests 02/28/21 06:00: WBC 8.4, RBC 4.92, Hgb 14.3, Hct 44.0, MCV 89.4, MCH 29.1, MCHC 32.5, Plt Count 225, MPV 10.5, Immature Gran % (Auto) 0.200, Neut % (Auto) 71.3 H, Lymph % (Auto) 17.8 L, [place] % (Auto) 7.2, Eos % (Auto) 2.9, Baso % (Auto) 0.6, Absolute Neuts (auto) 6.0, Nucleated RBC % 0 02/28/21 06:00: Sodium 135 L, Potassium 3.8, Chloride 104, Carbon Dioxide 25.0, Anion Gap 6, BUN 13, Creatinine 0.98, Est GFR (MDRD) Af Amer 104, Est GFR (MDRD) Non-Af 86, BUN/Creatinine Ratio 13.2, Glucose 104, Calcium 8.7, Magnesium 2.1 Rhythm: EKG: ECHO: Stress Test: Cardiac Cath: PCI: CT Surgery: Holter monitor: EPS: PPM: CXR: Chest CT Scan: Radiography Diagnostic Testing: Radiology Impression Echocardiogram 02/26/21 19:46 Interpretation Summary The study was technically difficult. Contrast injection was performed. Based upon the 2D echocardiographic and contrast enhanced images obtained there appears to be grossly normal left ventricular size, wall motion, and systolic function. The estimated ejection fraction is 55 %. The left atrium is mildly enlarged. Trivial mitral valve insufficiency. Trivial tricuspid valve insufficiency. Unable to estimate RV systolic pressure/pulmonary artery pressure due to technically difficult study. No evidence for diastolic dysfunction. Ordering Physician: Caitie Koch Performed By: Mabel Peterson, JESSE, RVT Physical Exam Const oriented x3 and healthy appearing Orientation / Consciousness: awake HEENT normocephalic Eyes PERRL and conjunctivae normal Neck supple, no JVD and no carotid bruits Chest inspection of chest normal Resp normal respiratory effort and clear to auscultation bilaterally Cardio Palpation: normal PMI Rate: regular rate Rhythm: regular rhythm Heart Sounds: S1 normal and S2 normal Peripheral Pulses: pulses 2+ throughout GI normal to inspection, nondistended, normoactive bowel sounds Extremity normal to inspection and no clubbing, cyanosis or edema Psych mental status grossly normal Assessment & Plan Assessment/Plan (1) Elevated troponin: Status: Acute Code(s): R77.8 - Other specified abnormalities of plasma proteins Plan: He does have elevated troponin for which he underwent a cardiac catheterization. This demonstrated high-grade distal right coronary artery lesion for which he underwent angioplasty and stenting. (2) Hypertension: Status: Chronic Code(s): I10 - Essential (primary) hypertension Plan: He had presented with elevated blood pressure. To be better at this time the current medications with the amlodipine, hydrochlorothiazide, No changes to be made with respect to the above. (3) CAD (coronary artery disease): Status: Acute Code(s): I25.10 - Atherosclerotic heart disease of [place] coronary artery without angina pectoris Plan: He does have a history of coronary artery disease and is status post previous angioplasty and stenting.
--- NOTE | 2021-02-28 11:24 | CL.I_ITS ---
Patient Name: WILBUR QUINTEROS Study Date: 02/28/2021 Performing: Benny More MD Ht: 66.14 inches 168 cm : 1970 Wt: 319.67 lbs 145 kg Age: 51 Gender: male BSA: 2.45 PROCEDURE(S) PERFORMED IM24-YAY W OR WO PTCA, SINGLE CORONARY ARTERY [id number] CLINICAL PROFILE AND CO-MORBIDITIES Indications: Worsening Angina Heart Failure: None Stress/Imaging Stress/Image Study Performed: No CAD Presentations: Unstable angina. CONCLUSIONS Successful FLORENCIA to dRCA RECOMMENDATIONS DESCRIPTION OF PROCEDURE The patient arrived to the procedure lab. The risks and benefits of the procedure as well as a full d escription of our services here and current unavailability of surgical backup were fully explained to the patient and/or their significant other prior to the catheterization. The Timeout was completed, verifying the correct patient and procedure. The patient's procedural site was prepped and draped in the usual fashion. Local anesthetic was given subcutaneously to right radial region with Lidocaine 2% Using a modified Seldinger technique,arterial access was obtained via the right radial artery, a 6Fr sheath was inserted. Left Coronary Artery selective angiography was performed in multiple views usin g a 5 Fr. 4.0 [place] catheter. Right Coronary Artery selective angiography was then performed in multi ple views using a 5 Fr. 4.0 [place] catheter. Ascending (root) aorta selective angiography was then per formed in single view. Ascending (root) aorta selective angiography was then performed in single view.The images were reviewed and options discussed. A decision was then made to proceed with an Intervention, IVUS or other adjunct procedure. JR4 Guide catheter was inserted and engaged into the RCA. BMW Guide wire was advanced to the RCA. 2.5x12 Emerge Balloon catheter was inserted. Balloon catheter was advanced across lesion in the righ t coronary, distal. PTCA balloon inflated at 8 atms for 15 secs. 2.5x15 Orsiro Drug Eluting stent was inserted. Drug Eluting stent was advanced across the lesion in the right coronary, distal. Angiogram performed post stent deployment. Angiogram performed post NTG. The arterial sheath was pulled and a TR Band was applied for hemostasis. 12cc of air INTERVENTION INFORMATION LESION SITE: RCA (Distal) Lesion Complexity: High/C, chronic total occlusion: No, lesion at bifurcation: Yes, thrombus present: No, lesion length: 12 mm, culprit lesion: Yes, Previously treated lesion: No Pre Stenosis: 90 % Pre intervention TIMMY flow: 3 PROCEDURE: Drug Eluting Stent with pre dilatation. Post Stenosis: 0 % Post intervention TIMMY flow: 3 Lesion Devices: Cardinal 6 Fr JR4 100cm Guide Catheter [place] .014 BMW [place] Straight 190cm Rm Sci EMERGE MR 2.50x12 BALLOON COMPLICATIONS No Complications PROCEDURE MEDICATIONS Fentanyl 50 mcg IV Versed 1 mg IV Fentanyl 50 mcg IV Versed 1 mg IV Oxygen: 2 L/min via nasal cannula Heparin diluted in 23cc Heparinized saline. Patient given 10cc IA of this solution. 02/28/2021 08:28:5 3 Heparin 37470 unit(s) IV 02/28/2021 08:59:34 Nitro 200 mcg IC 02/28/2021 09:14:59 Verapamil 2.5mg, Ntg 100mcgs, 2000 units of Heparin diluted in 23cc Heparinized saline. Patient give n 10cc IA of this solution. 02/28/2021 08:28:53 SUMMARY OF HEMODYNAMIC DATA Time AIR REST ECG 07:58:12 AO 126/90 (109) SA 08:31:07 Signed By Benny More MD On 02/28/2021 11:23:58 AM Benny More MD
[2021-02-28] MEDS: 0.9% Normal Saline 1,000 ML 70 ML IV (12:00)
[2021-02-28] MEDS: hydroCHLOROthiazide 25 MG Tablet PO (12:01)
[2021-02-28] MEDS: Potassium Chloride Oral Tablet 10 MEQ PO (12:03)
[2021-02-28 12:11] LABS: Bedside Glucose 100 mg/dL (70-110)
--- NOTE | 2021-02-28 14:35 | CL.D_ITS ---
Patient Name: WILBUR QUINTEROS Study Date: 02/28/2021 Performing: Kris Barroso MD Ht: 66.14 inches 168 cm : 1970 Wt: 319.67 lbs 145 kg Age: 51 Gender: male BSA: 2.45 PROCEDURE(S) PERFORMED [id number] ROOT ANGIO WITH HEART CATH [id number] W OR WO PTCA, SINGLE CORONARY ARTERY CLINICAL PROFILE AND INDICATIONS Indications: ACS <= 24 hrs Heart Failure: None Stress/Imaging Stress/Image Study Performed: No CAD Presentations: Unstable angina. CONCLUSIONS High-grade stenosis to the distal right coronary artery, mild disease of the circumflex artery, total ly occluded mid left anterior descending artery with presumably patent ROSE to the LAD. RECOMMENDATIONS Referred for immediate PCI DESCRIPTION OF PROCEDURE The patient arrived to the procedure lab. The risks and benefits of the procedure as well as a full d escription of our services here and current unavailability of surgical backup were fully explained to the patient and/or their significant other prior to the catheterization. The Timeout was completed, verifying the correct patient and procedure. The patient's procedural site was prepped and draped in the usual fashion. Local anesthetic was given subcutaneously to right radial region with Lidocaine 2% . Using a modified Seldinger technique, arterial access was obtained via the right radial artery, a 6 Fr sheath was inserted. Left Coronary Artery selective angiography was performed in multiple views u sing a 5 Fr. 4.0 Doyle catheter. Right Coronary Artery selective angiography was then performed in mu ltiple views using a 5 Fr. 4.0 Doyle catheter. Ascending (root) aorta selective angiography was then performed in single view. Ascending (root) aorta selective angiography was then performed in single view.The arterial sheath was pulled and a TR Band was applied for hemostasis. 12cc of air CORONARY ANGIOGRAPHY DOMINANCE: Right Dominant LEFT HEART ASSESSMENT Left Ventricular Ejection Fraction: by Echo 55 % Normal Left Ventricular systolic function LEFT MAIN: Angiographically normal LEFT ANTERIOR DESCENDING ARTERY: MID LAD: is occluded CIRCUMFLEX ARTERY: Mild luminal irregularities less than 30% OM 1: Ostial - is occluded RIGHT CORONARY ARTERY: Previously placed stent is patent RT PDA: Proximal - 95 % Stenosis GRAFTS: YUMIKO graft to the ramus is totally occluded Saphenous Vein graft to the 1st OM is totally occluded COMPLICATIONS No Complications PROCEDURE MEDICATIONS Fentanyl 50 mcg IV Versed 1 mg IV Fentanyl 50 mcg IV Versed 1 mg IV Oxygen: 2 L/min via nasal cannula Heparin diluted in 23cc Heparinized saline. Patient given 10cc IA of this solution. 02/28/2021 08:28:5 3 Heparin 62970 unit(s) IV 02/28/2021 08:59:34 Nitro 200 mcg IC 02/28/2021 09:14:59 Verapamil 2.5mg, Ntg 100mcgs, 2000 units of Heparin diluted in 23cc Heparinized saline. Patient give n 10cc IA of this solution. 02/28/2021 08:28:53 SUMMARY OF HEMODYNAMIC DATA Time AIR REST ECG 07:58:12 AO 126/90 (109) SA 08:31:07 Signed By Kris Barroso MD On 02/28/2021 2:33:59 PM Kris Barroso MD
[2021-02-28 16:40] LABS: Bedside Glucose 112 mg/dL (70-110)
--- NOTE | 2021-02-28 18:10 | PCM.PN.HOSP ---
Subjective Subjective: Patient had cardiac cath in the morning and found to have high-grade stenosis to distal RCA, mild disease of circumflex artery, totally occluded mid LAD with previously patent ROSE to LAD Patient does not have chest pain. Objective Data Objective Data Vital Signs: Vital Signs Temp Pulse Resp BP Pulse Ox 98.3 F 56 L 16 130/70 H 98 02/28/21 12:45 02/28/21 16:00 02/28/21 14:34 02/28/21 14:34 02/28/21 14:34 Oxygen Delivery Method Room Air Weight: 320 lb 0.015 oz Body Mass Index (BMI) 51.6 Intake & Output: Intake and Output for Last 24 Hours 02/26/21 02/27/21 02/28/21 23:59 23:59 23:59 Intake Total 240 / 240 1360 / 1720 490 / 490 Output Total 300 / 300 Balance 240 / 240 1360 / 1720 190 / 190 Lab / Micro Data Result Diagrams: 02/28/21 06:00 02/28/21 06:00 Labs: Laboratory Results - last 24 hr 02/27/21 02/28/21 02/28/21 20:41 06:00 06:00 WBC 8.4 RBC 4.92 Hgb 14.3 Hct 44.0 MCV 89.4 MCH 29.1 MCHC 32.5 RDW Std Deviation 44.5 H RDW Coeff of Jolanta 13.7 Plt Count 225 MPV 10.5 Immature Gran % (Auto) 0.200 Neut % (Auto) 71.3 H Lymph % (Auto) 17.8 L [place] % (Auto) 7.2 Eos % (Auto) 2.9 Baso % (Auto) 0.6 Absolute Neuts (auto) 6.0 Absolute Lymphs (auto) 1.49 Nucleated RBC % 0 Sodium 135 L Potassium 3.8 Chloride 104 Carbon Dioxide 25.0 Anion Gap 6 BUN 13 Creatinine 0.98 Estim Creat Clear Calc 81.38 Est GFR (MDRD) Af Amer 104 Est GFR (MDRD) Non-Af 86 BUN/Creatinine Ratio 13.2 Glucose 104 Calcium 8.7 Magnesium 2.1 POC Glucose 147 H 02/28/21 02/28/21 02/28/21 06:38 11:57 16:34 WBC RBC Hgb Hct MCV MCH MCHC RDW Std Deviation RDW Coeff of Jolanta Plt Count MPV Immature Gran % (Auto) Neut % (Auto) Lymph % (Auto) [place] % (Auto) Eos % (Auto) Baso % (Auto) Absolute Neuts (auto) Absolute Lymphs (auto) Nucleated RBC % Sodium Potassium Chloride Carbon Dioxide Anion Gap BUN Creatinine Estim Creat Clear Calc Est GFR (MDRD) Af Amer Est GFR (MDRD) Non-Af BUN/Creatinine Ratio Glucose Calcium Magnesium POC Glucose 122 H 100 112 H Physical Exam Narrative General: Alert, Oriented x3, Cooperative HEENT: Atraumatic, PERRLA, EOMI, Normocephalic Oral: No Gingival or Mucosal Lesions/ Ulcerations Neck: Supple, No JVD, Negative Carotid Bruits Lungs: Air entry diminished in bilateral lung bases. No crepitation/rhonchi Cardiovascular: Sinus rhythm, regular rate, Regular Rhythm, Normal S1, Normal S2, No murmurs Abdomen: Bowel Sounds Present, Soft, Non Tender, Non-Distended : No renal angle tenderness. No suprapubic tenderness. Extremities: Right radial artery access, no hematoma. No edema, Capillary Refill Less than 3 Seconds Skin: No rashes, No breakdown Musculoskeletal: No Tenderness to Palpation of Joints or Extremities Neurological: Cranial nerves II-XII grossly intact, Deep Tendon Reflexes 2+/4 and Symmetrical, Neuro grossly intact Psych/Mental Status: Normal Affect, Appropriate. Assessment & Plan Assessment/Plan (1) Unstable angina: (2) Hypertension: (3) CAD (coronary artery disease): (4) Chest pain, unspecified: (5) Elevated troponin: PLAN: Patient is a 51-year-old gentleman with past medical history significant for coronary artery disease with previous CABG and subsequent stent placement who presented with chest pain and elevated troponin. An assessment of acute non-STEMI made treatment initiated protocol admitted to monitored nursing floor with consultation made to cardiology 1. Acute non-STEMI ?Patient admitted to monitored bed treatment initiated per protocol with therapeutic Lovenox, ARB, statin therapy and beta-blockers. Patient was seen by regional sales leader. Had cardiac cath in the morning. Found to have high-grade stenosis of distal RCA, mild disease of circumflex and totally occluded mid LAD. EF 55%. Normal LV systolic function. Patient underwent angioplasty and stenting of distal RCA. 2. Coronary artery disease ?Status post CABG with subsequent stent placement patient is evidence-based medications. 3. Morbid obesity - With a BMI of 51.6 patient was counseled on weight reduction 4. Hypertension - Blood pressure controlled, home medications continued with dose adjustment as needed 5. Dyslipidemia -Patient is on statin therapy, continued at home dose 6. Diabetes mellitus type II -patient's oral hypoglycemics held. Placed on long acting insulin, Accu-Cheks a.c. and at bedtime and covered with sliding scale insulin 7. DVT prophylaxis -Bilateral SCDs. Resume Lovenox after 24 hours of PCI. Visit Charges Inpatient E&M: 70678 Subs Hosp L2
[2021-02-28] MEDS: Atorvastatin Calcium 80 MG Tablet PO (22:42)
[2021-02-28] MEDS: Enoxaparin 150 MG/ML Syringe SC (22:42)
[2021-02-28 22:51] LABS: Bedside Glucose 93 mg/dL (70-110)
[2021-03-01 03:13] VITALS: PULSE 66
[2021-03-01 05:44] LABS: Absolute Lymphocyte Count 1.66 X10^3/uL (0.83-4.51); Absolute Neutrophil Count 7.9 X10^3/uL (2.0-7.7); Basophil# 0.04 X10^3/uL; Basophil% 0.4 % (0-1); Eosinophil# 0.27 X10^3/uL; Eosinophils% 2.6 % (0-5); Hematocrit 41.2 % (40-54); Lymphocyte # 1.66 X10^3/ul (0.83-4.51); Lymphocyte % 15.7 % (19-41); Mean Corpuscular Hgb 29.2 pg (27.0-32.0); Mean Platelet Vol. 9.9 fl (6.2-12.0); Monocyte% 5.7 % (0-10); NRBC Flagged by Analyzer 0 % (0-5); Neutrophil # 7.94 X10^3/uL (2.7-7.7); Neutrophil % 75.3 % (47-70); Platelet Count 289 K/mm3 (150-450); RBC Distribution Width CV 13.7 % (11.6-14.6); RBC Distribution Width SD 42.5 fl (35.1-43.9); Red Blood Count 4.79 M/mm3 (4.6-6.2); White Blood Count 10.5 K/mm3 (4.4-11.0)
[2021-03-01 06:12] LABS: ALB/GLOB Ratio 0.7 RATIO (0.9-2.4); AST(SGOT) 33 U/L (15-37); Alanine Aminotransfer ALT/SGPT 40 U/L (16-61); Albumin, Serum 3.2 g/dL (3.2-5.0); Alkaline Phosphatase 83 U/L (45-117); Anion Gap 5 (5-15); BUN 9 mg/dL (7-18); BUN/Creat Ratio 8.8 RATIO (10-20); Calcium,Total 8.8 mg/dL (8.5-10.1); Chloride 103 mmol/L (98-107); Creatinine, Serum 1.02 mg/dL (0.70-1.30); EST Glomerular Filtration Rate 82 mL/min (>60); Est Glom Filt Rate - Afr Amer 99 mL/min (>60); Estimated Creatinine Clearance 78.19 ml/min; Globulin 4.8 g/dL (2.2-4.2); Glucose 107 mg/dL (74-106); Potassium 3.8 mmol/L (3.5-5.1); Sodium Level 136 mmol/L (136-145)
[2021-03-01 06:52] VITALS: BP 143/74; PULSE 61; RESP 16; TEMP 36.6; O2SAT 98
[2021-03-01 07:00] VITALS: PULSE 53
[2021-03-01 07:00] LABS: Bedside Glucose 114 mg/dL (70-110)
[2021-03-01] MEDS: Potassium Chloride Oral Tablet 10 MEQ PO (08:00)
--- NOTE | 2021-03-01 08:08 | PCM.PN.CARD ---
Subjective Subjective: Patient seen and evaluated. Appears to be doing well. No complaints. Objective Data Vital Signs: Vital Signs Temp Pulse Resp BP Pulse Ox 97.8 F 53 L 16 143/74 H 98 03/01/21 06:52 03/01/21 07:00 03/01/21 06:52 03/01/21 06:52 03/01/21 06:52 Oxygen Delivery Method Room Air Weight: 320 lb 0.015 oz Body Mass Index (BMI) 51.6 Intake & Output: Intake and Output for Last 24 Hours 02/27/21 02/28/21 03/01/21 23:59 23:59 23:59 Intake Total 1360 / 1720 1806.5 / 1806.5 240 / 240 Output Total 600 / 600 Balance 1360 / 1720 1206.5 / 1206.5 240 / 240 Lab / Micro Data Result Diagrams: 03/01/21 05:36 03/01/21 05:36 Labs: Laboratory Results - last 24 hr 02/28/21 02/28/21 02/28/21 11:57 16:34 22:40 WBC RBC Hgb Hct MCV MCH MCHC RDW Std Deviation RDW Coeff of Jolanta Plt Count MPV Immature Gran % (Auto) Neut % (Auto) Lymph % (Auto) [place] % (Auto) Eos % (Auto) Baso % (Auto) Absolute Neuts (auto) Absolute Lymphs (auto) Nucleated RBC % Sodium Potassium Chloride Carbon Dioxide Anion Gap BUN Creatinine Estim Creat Clear Calc Est GFR (MDRD) Af Amer Est GFR (MDRD) Non-Af BUN/Creatinine Ratio Glucose Calcium Total Bilirubin AST ALT Alkaline Phosphatase Total Protein Albumin Globulin Albumin/Globulin Ratio POC Glucose 100 112 H 93 03/01/21 03/01/21 03/01/21 05:36 05:36 06:55 WBC 10.5 RBC 4.79 Hgb 14.0 Hct 41.2 MCV 86.0 MCH 29.2 MCHC 34.0 RDW Std Deviation 42.5 RDW Coeff of Jolanta 13.7 Plt Count 289 MPV 9.9 Immature Gran % (Auto) 0.300 Neut % (Auto) 75.3 H Lymph % (Auto) 15.7 L [place] % (Auto) 5.7 Eos % (Auto) 2.6 Baso % (Auto) 0.4 Absolute Neuts (auto) 7.9 H Absolute Lymphs (auto) 1.66 Nucleated RBC % 0 Sodium 136 Potassium 3.8 Chloride 103 Carbon Dioxide 28.0 Anion Gap 5 BUN 9 Creatinine 1.02 Estim Creat Clear Calc 78.19 Est GFR (MDRD) Af Amer 99 Est GFR (MDRD) Non-Af 82 BUN/Creatinine Ratio 8.8 L Glucose 107 H Calcium 8.8 Total Bilirubin 0.50 AST 33 ALT 40 Alkaline Phosphatase 83 Total Protein 8.0 Albumin 3.2 Globulin 4.8 H Albumin/Globulin Ratio 0.7 L POC Glucose 114 H Cardiology Labs/Tests 03/01/21 05:36: WBC 10.5, RBC 4.79, Hgb 14.0, Hct 41.2, MCV 86.0, MCH 29.2, MCHC 34.0, Plt Count 289, MPV 9.9, Immature Gran % (Auto) 0.300, Neut % (Auto) 75.3 H, Lymph % (Auto) 15.7 L, [place] % (Auto) 5.7, Eos % (Auto) 2.6, Baso % (Auto) 0.4, Absolute Neuts (auto) 7.9 H, Nucleated RBC % 0 03/01/21 05:36: Sodium 136, Potassium 3.8, Chloride 103, Carbon Dioxide 28.0, Anion Gap 5, BUN 9, Creatinine 1.02, Est GFR (MDRD) Af Amer 99, Est GFR (MDRD) Non-Af 82, BUN/Creatinine Ratio 8.8 L, Glucose 107 H, Calcium 8.8, Total Bilirubin 0.50 Rhythm: EKG: ECHO: Stress Test: Cardiac Cath: PCI: CT Surgery: Holter monitor: EPS: PPM: CXR: Chest CT Scan: Physical Exam Const oriented x3 and healthy appearing Orientation / Consciousness: awake HEENT normocephalic Eyes PERRL and conjunctivae normal Neck supple, no JVD and no carotid bruits Chest inspection of chest normal Resp normal respiratory effort and clear to auscultation bilaterally Cardio Palpation: normal PMI Rate: regular rate Rhythm: regular rhythm Heart Sounds: S1 normal and S2 normal Peripheral Pulses: pulses 2+ throughout GI normal to inspection, nondistended, normoactive bowel sounds Extremity normal to inspection and no clubbing, cyanosis or edema Psych mental status grossly normal Assessment & Plan Assessment/Plan (1) Unstable angina: PLAN: He had presented with unstable angina and underwent cardiac catheterization and noted to have high-grade distal right coronary artery lesion for which he underwent angioplasty and stenting. He has done well and will be discharged for outpatient follow-up. (2) Hypertension: PLAN: He had presented with elevated blood pressure. To be better at this time the current medications with the amlodipine, hydrochlorothiazide, No changes to be made with respect to the above. (3) CAD (coronary artery disease): PLAN: He does have a history of coronary artery disease and is status post previous angioplasty and stenting. He underwent angioplasty and stenting to the right coronary artery and is doing well. He can be discharged for outpatient follow-up in my office in 4 to 6 weeks (4) Chest pain, unspecified:
[2021-03-01 08:12] VITALS: O2SAT 95
[2021-03-01 09:30] VITALS: BP 121/58
[2021-03-01] MEDS: Enoxaparin 150 MG/ML Syringe SC (09:33)
[2021-03-01] MEDS: hydroCHLOROthiazide 25 MG Tablet PO (09:33)
[2021-03-01] MEDS: Losartan Potassium 25 MG Tablet PO (09:33)
[2021-03-01] MEDS: Clopidogrel Bisulfate 75 MG Tablet PO (09:33)
[2021-03-01] MEDS: amLODIPine 10 MG Tablet PO (09:33)
[2021-03-01] MEDS: Aspirin 81 MG TAB.CHEW PO (09:33)
--- NOTE | 2021-03-01 10:00 | EKG12_ITS ---
Test Reason : PCI Blood Pressure : / mmHG Vent. Rate : 053 BPM Atrial Rate : 053 BPM P-R Int : 174 ms QRS Dur : 112 ms QT Int : 466 ms P-R-T Axes : 004 063 -34 degrees QTc Int : 437 ms Sinus bradycardia Otherwise normal ECG When compared with ECG of 28-FEB-2021 04:31, MANUAL COMPARISON REQUIRED, DATA IS UNCONFIRMED Confirmed by ALISTAIR TRUJILLO, YARELIS ([id number]), state editor JORDAN PATTERSON ([id number]) on 03/05/2021 1:24:52 PM Referred By: ALISTAIR Confirmed By:UMU SAINZ MD
--- NOTE | 2021-03-01 11:32 | PCM.DC ---
Discharge Instructions Diet Discharge Diet: 2000 mg Sodium Diet Activity Discharge Activity: Return to Normal Activity Weight Bearing Status: Weight bearing as tolerated Dressing / Incision Call your doctor if you observe: Fever of 101 or Higher, Coldness, Increased Pain, Change in Color, Inability to urinate, Inability to have a bowel movement, Shortness of breath, Dizziness, Fainting spells, Swelling in the ankles, Chest pain, Prolonged hiccupping, Increased palpitations (irregular heartbeat) and Calf discomfort Follow Up Care Test Results: Test results from this visit will be discussed in further detail at your follow-up appointment, if applicable. Discharge Plan Admission Admit Date/Time: 02/26/21 18:35 Primary Reason for Your Visit: Non-STEMI Attending Provider: Nakul Knight Consulting Providers: Sunita Krueger ; Kris Barroso ; Pradip Griffith ; Hayden Shetty ; Dash Espinoza ; Que Echevarria ; Emili More ; Zane Jaeger ; Raheme Griffin ; Prakash Mcgarry NP ; Billie Hernandez PA Instructions Patient Instructions: Angina, ED Chest Pain, Noncardiac Discharge Orders/Prescriptions Prescriptions: Continued amlodipine 10 MG tablet 10 mg PO DAILY RF: 0 aspirin 81 MG tablet,chewable 81 mg PO DAILY RF: 0 hydrochlorothiazide 25 MG tablet 25 mg PO DAILY RF: 0 potassium chloride 10 mEq tablet extended release 10 meq PO DAILY RF: 0 clopidogrel 75 mg tablet 75 mg PO DAILY RF: 0 losartan 25 mg tablet 25 mg PO BID RF: 0 rosuvastatin 40 mg tablet 40 mg PO DAILY RF: 0 metformin 500 mg tablet 500 mg PO BID Qty: 0 RF: 0 Changed metoprolol succinate 50 MG tablet 25 mg PO DAILY Qty: 0 RF: 0 Referrals / Follow Up: Mikhail Loredo [Other] Mikhail Loredo [Other] Kris Barroso MD [STAFF PHYSICIAN] - (In 2 to 3 weeks) Disposition Disposition (needs filled in before D/C Order can be placed): Home, self care
--- NOTE | 2021-03-01 11:39 | DS.PCM_ITS ---
Providers Date of Admission: 02/26/21 Primary Care Physician: Mikhail Loredo Consultations 02/26/21 19:46 Consult: Cardiology Routine Consulting Provider: Fina Palumbo Reason for Consult: Chest pain, abnormal cardiac enzymes EMERGENT Consult: No MD Notified: Yes Date Notified:: 02/26/21 Time Notified: 18:33 Method of Notification: Text Reason For Visit: CHEST PAIN, ABNORMAL CARDIAC ENZYMES Diagnosis Discharge Diagnosis (1) Unstable angina: Status: Acute Code(s): I20.0 - Unstable angina (2) Hypertension: Status: Chronic Code(s): I10 - Essential (primary) hypertension (3) CAD (coronary artery disease): Status: Acute Code(s): I25.10 - Atherosclerotic heart disease of [place] coronary artery without angina pectoris (4) Chest pain, unspecified: Status: Acute Code(s): R07.9 - Chest pain, unspecified Medications at Discharge Home Medications amlodipine 10 mg PO DAILY 09/25/16 aspirin 81 mg PO DAILY 09/25/16 hydrochlorothiazide 25 mg PO DAILY 09/25/16 clopidogrel 75 mg PO DAILY 02/26/21 losartan 25 mg PO BID 02/26/21 potassium chloride 10 meq PO DAILY 02/26/21 rosuvastatin 40 mg PO DAILY 02/26/21 metformin 500 mg PO BID #0 tab 03/01/21 metoprolol succinate 25 mg PO DAILY #0 tab 03/01/21 Hospital Course Summary of Care Provided Hospital Course: Patient is a 51-year-old gentleman with past medical history significant for coronary artery disease with previous CABG and subsequent stent placement who presented with chest pain and elevated troponin. An assessment of acute non-STEMI made treatment initiated protocol admitted to monitored nursing floor with consultation made to cardiology 1. Acute non-STEMI secondary to high-grade stenosis of distal RCA ?Patient admitted to monitored bed treatment initiated per protocol with therapeutic Lovenox, ARB, statin therapy and beta-blockers. Patient was seen by river tester. Had cardiac cath in the morning. Found to have high-grade stenos is of distal RCA, mild disease of circumflex and totally occluded mid LAD. EF 55%. Normal LV systolic function. Patient underwent angioplasty and stenting of distal RCA. Patient has sinus bradycardia secondary to Toprol-XL. Toprol-XL was increased to 25 mg daily. Patient is on aspirin and Plavix. 2. Coronary artery disease ?Status post CABG with subsequent stent placement patient is evidence-based medications. 3. Morbid obesity - With a BMI of 51.6 patient was counseled on weight reduction 4. Hypertension - Blood pressure controlled, home medications continued with dose adjustment as needed 5. Dyslipidemia -Patient is on statin therapy, continued at home dose 6. Diabetes mellitus type II -patient's oral hypoglycemics held. Placed on long acting insulin, Accu-Cheks a.c. and at bedtime and covered with sliding scale insulin 7. DVT prophylaxis Discharge medication reconciliation done. Discharge follow-up instructions completed. Discharge process discussed with the patient and all questions were answered to patient's satisfaction. Total time spent, exact 35 minutes on discharge meds reconciliation, examination, coordination of care with nurses and ancillary staff, review of imaging and blood test and discussion with the patient on follow-up instructions Laboratory Results 02/28/21 16:34: POC Glucose 112 H 02/28/21 22:40: POC Glucose 93 03/01/21 05:36: WBC 10.5, RBC 4.79, Hgb 14.0, Hct 41.2, MCV 86.0, MCH 29.2, MCHC 34.0, RDW Std Deviation 42.5, RDW Coeff of Jolanta 13.7, Plt Count 289, MPV 9.9, Immature Gran % (Auto) 0.300, Neut % (Auto) 75.3 H, Lymph % (Auto) 15.7 L, [place] % (Auto) 5.7, Eos % (Auto) 2.6, Baso % (Auto) 0.4, Absolute Neuts (auto) 7.9 H, Absolute Lymphs (auto) 1.66, Nucleated RBC % 0 03/01/21 05:36: Sodium 136, Potassium 3.8, Chloride 103, Carbon Dioxide 28.0, Anion Gap 5, BUN 9, Creatinine 1.02, Estim Creat Clear Calc 78.19, Est GFR (MDRD) Af Amer 99, Est GFR (MDRD) Non-Af 82, BUN/Creatinine Ratio 8.8 L, Glucose 107 H, Calcium 8.8, Total Bilirubin 0.50, AST 33, ALT 40, Alkaline Phosphatase 83, Total Protein 8.0, Albumin 3.2, Globulin 4.8 H, Albumin/Globulin Ratio 0.7 L 03/01/21 06:55: POC Glucose 114 H 05/06/21 11:22: POC Glucose 148 H Physical Exam Narrative Seen and examined. Heart rate in 50s, sinus bradycardia. Patient educated about Toprol dose and to hold it if heart rate less than 60/min. General: Alert, Oriented x3, Cooperative HEENT: Atraumatic, PERRLA, EOMI, Normocephalic Oral: No Gingival or Mucosal Lesions/ Ulcerations Neck: Supple, No JVD, Negative Carotid Bruits Lungs: Air entry diminished in bilateral lung bases. No crepitation/rhonchi Cardiovascular: Sinus bradycardia, Normal S1, Normal S2, No murmurs Abdomen: Bowel Sounds Present, Soft, Non Tender, Non-Distended : No renal angle tenderness. No suprapubic tenderness. Extremities: Right radial artery access, no hematoma. No edema, Capillary Refill Less than 3 Seconds Skin: No rashes, No breakdown Musculoskeletal: No Tenderness to Palpation of Joints or Extremities Neurological: Cranial nerves II-XII grossly intact, Deep Tendon Reflexes 2+/4 and Symmetrical, Neuro grossly intact Psych/Mental Status: Normal Affect, Appropriate. ABG / Lab / Microbiology Data Result Diagrams: 03/01/21 05:36 03/01/21 05:36 Laboratory: Laboratory Results - last 24 hr 02/28/21 02/28/21 02/28/21 11:57 16:34 22:40 WBC RBC Hgb Hct MCV MCH MCHC RDW Std Deviation RDW Coeff of Jolanta Plt Count MPV Immature Gran % (Auto) Neut % (Auto) Lymph % (Auto) [place] % (Auto) Eos % (Auto) Baso % (Auto) Absolute Neuts (auto) Absolute Lymphs (auto) Nucleated RBC % Sodium Potassium Chloride Carbon Dioxide Anion Gap BUN Creatinine Estim Creat Clear Calc Est GFR (MDRD) Af Amer Est GFR (MDRD) Non-Af BUN/Creatinine Ratio Glucose Calcium Total Bilirubin AST ALT Alkaline Phosphatase Total Protein Albumin Globulin Albumin/Globulin Ratio POC Glucose 100 112 H 93 03/01/21 03/01/21 03/01/21 05:36 05:36 06:55 WBC 10.5 RBC 4.79 Hgb 14.0 Hct 41.2 MCV 86.0 MCH 29.2 MCHC 34.0 RDW Std Deviation 42.5 RDW Coeff of Jolanta 13.7 Plt Count 289 MPV 9.9 Immature Gran % (Auto) 0.300 Neut % (Auto) 75.3 H Lymph % (Auto) 15.7 L [place] % (Auto) 5.7 Eos % (Auto) 2.6 Baso % (Auto) 0.4 Absolute Neuts (auto) 7.9 H Absolute Lymphs (auto) 1.66 Nucleated RBC % 0 Sodium 136 Potassium 3.8 Chloride 103 Carbon Dioxide 28.0 Anion Gap 5 BUN 9 Creatinine 1.02 Estim Creat Clear Calc 78.19 Est GFR (MDRD) Af Amer 99 Est GFR (MDRD) Non-Af 82 BUN/Creatinine Ratio 8.8 L Glucose 107 H Calcium 8.8 Total Bilirubin 0.50 AST 33 ALT 40 Alkaline Phosphatase 83 Total Protein 8.0 Albumin 3.2 Globulin 4.8 H Albumin/Globulin Ratio 0.7 L POC Glucose 114 H D/C Instructions Discharge Diet: 2000 mg Sodium Diet Discharge Activity: Return to Normal Activity Weight Bearing Status: Weight bearing as tolerated Call your doctor if you observe: Fever of 101 or Higher, Coldness, Increased Pain, Change in Color, Inability to urinate, Inability to have a bowel movement, Shortness of breath, Dizziness, Fainting spells, Swelling in the ankles, Chest pain, Prolonged hiccupping, Increased palpitations (irregular heartbeat) and Calf discomfort Meaningful Use Info Meaningful Use Diagnoses (Choose all that apply): AMI AMI/Post PCI/Angioplasty Aspirin given w/in 24hrs of arrival?: Yes ASA at discharge?: Yes Antiplatelet Therapy at Discharge:: Yes Statins at discharge?: Yes Ras/ARB at discharge?: Yes Beta Kandis at discharge?: Yes Done w/ Acute KS measure.: Yes Documented LVEF (%): 55 Discharge Plan Admission Admit Date/Time: 02/26/21 18:35 Primary Reason for Your Visit: Non-STEMI Attending Provider: Nakul Knight Consulting Providers: Sunita Krueger ; Kris Barroso ; Pradip Griffith ; Hayden Shetty ; Dash Espinoza ; Que Echevarria ; Emili More ; Zane Jaeger ; Raheem Griffin ; Prakash Mcgarry BLENDER ; Billie Hernandez PA Instructions Patient Instructions: Angina, ED Chest Pain, Noncardiac Discharge Orders/Prescriptions Prescriptions: Continued amlodipine 10 MG tablet 10 mg PO DAILY RF: 0 aspirin 81 MG tablet,chewable 81 mg PO DAILY RF: 0 hydrochlorothiazide 25 MG tablet 25 mg PO DAILY RF: 0 potassium chloride 10 mEq tablet extended release 10 meq PO DAILY RF: 0 clopidogrel 75 mg tablet 75 mg PO DAILY RF: 0 losartan 25 mg tablet 25 mg PO BID RF: 0 rosuvastatin 40 mg tablet 40 mg PO DAILY RF: 0 metformin 500 mg tablet 500 mg PO BID Qty: 0 RF: 0 Changed metoprolol succinate 50 MG tablet 25 mg PO DAILY Qty: 0 RF: 0 Referrals / Follow Up: Mikhail Loredo [Other] Mikhail Loredo [Other] Kris Barroso MD [STAFF PHYSICIAN] - (In 2 to 3 weeks) Disposition Disposition (needs filled in before D/C Order can be placed): Home, self care Visit Charges Inpatient E&M: 01102 Disch Hosp
[2021-03-01 11:40] LABS: Bedside Glucose 148 mg/dL (70-110)
[2021-03-01 11:46] VITALS: BP 120/60; PULSE 56; RESP 16; TEMP 36.8; O2SAT 98
== END 2021-03-01 12:18 | disposition home or self-care (01) | DRG 247 ==
LOC: ED 17:52 → PCU 18:37
PROVIDERS: Internal Medicine; Admitting Provider Hospitalist; Emergency Provider Emergency Medicine; Visit Provider Internal Medicine
DX: I21.4 Non-ST elevation (NSTEMI) myocardial infarction (principal); Z68.43 Body mass index [BMI] 50.0-59.9, adult; I25.110 Atherosclerotic heart disease of native coronary artery with unstable angina pectoris; E66.01 Morbid (severe) obesity due to excess calories; I10 Essential (primary) hypertension; E78.5 Hyperlipidemia, unspecified; E11.9 Type 2 diabetes mellitus without complications; Z95.1 Presence of aortocoronary bypass graft; Z95.5 Presence of coronary angioplasty implant and graft; Z79.84 Long term (current) use of oral hypoglycemic drugs; Z79.899 Other long term (current) drug therapy; T44.7X5A Adverse effect of beta-adrenoreceptor antagonists, initial encounter; R00.1 Bradycardia, unspecified
CPT/HCPCS: 36415; 71045; 80048; 80053; 82962; 83735; 84484; 85025; 92928; 93005; 93306; 93454; 93567; 99152; 99153; 99251; 99285; J7030; Q9957; Q9967; A4216; C1725; C1769; C1874; C1887; C1894; C8929; C9600; G0463

== ENCOUNTER 2021-05-07 13:19 | Observation (INO) | payer OTHER, SELFPAY ==
[2021-03-12 08:50] VITALS: BMI 51.6
[2021-05-07] VITALS (10 sets, daily range): BP systolic 113–191; BP diastolic 63–104; PULSE 47–125; RESP 16–19; TEMP 35.8–36.8; O2SAT 96–99; BMI 51.1; BMI 50.4
--- NOTE | 2021-05-07 13:25 | EKG12_ITS ---
Test Reason : CHEST PAIN,SOB Blood Pressure : / mmHG Vent. Rate : 136 BPM Atrial Rate : 293 BPM P-R Int : 000 ms QRS Dur : 090 ms QT Int : 298 ms P-R-T Axes : 000 142 013 degrees QTc Int : 448 ms Atrial flutter with variable A-V block Poor R wave progression Nonspecific ST abnormality Abnormal ECG Confirmed by SASCHA TRUJILLO, BEL ([id number]), bridge expert JORDAN PATTERSON ([id number]) on 05/09/2021 9:25:27 AM Referred By: CHELY Confirmed By:BEL CAICEDO MD
[2021-05-07 13:54] LABS: Absolute Lymphocyte Count 1.36 X10^3/uL (0.83-4.51); Absolute Neutrophil Count 8.9 X10^3/uL (2.0-7.7); Basophil# 0.05 X10^3/uL; Basophil% 0.4 % (0-1); Eosinophil# 0.22 X10^3/uL; Eosinophils% 1.9 % (0-5); Hematocrit 45.6 % (40-54); Hemoglobin 15.6 g/dL (13.0-16.5); Lymphocyte # 1.36 X10^3/ul (0.83-4.51); Mean Corp Hgb Conc 34.2 g/dL (32-36); Mean Corpuscular Hgb 28.6 pg (27.0-32.0); Mean Corpuscular Volume 83.7 fL (80-94); Mean Platelet Vol. 10.4 fl (6.2-12.0); Monocyte% 6.2 % (0-10); NRBC Flagged by Analyzer 0 % (0-5); Neutrophil # 8.93 X10^3/uL (2.7-7.7); Neutrophil % 79.1 % (47-70); Platelet Count 318 K/mm3 (150-450); RBC Distribution Width CV 13.4 % (11.6-14.6); RBC Distribution Width SD 40.6 fl (35.1-43.9); Red Blood Count 5.45 M/mm3 (4.6-6.2); White Blood Count 11.3 K/mm3 (4.4-11.0)
--- NOTE | 2021-05-07 14:00 | RAD_ITS ---
STUDY: X-RAY CHEST REASON FOR EXAM: Male, 51 years old. Chest pain TECHNIQUE: Single AP portable view of the chest. COMPARISON: Comparison is made with prior study dated 02/26/2021. FINDINGS: EKG electrodes are seen. The lungs are clear and expanded. There is no demonstrated pleural abnormality. Sternal cerclage wires and vascular clips are present from a prior sternotomy and coronary artery bypass graft procedure (CABG). Myocardial megaly. Normal mediastinum and maria [place]. Normal visualized pulmonary arteries. Normal visualized aortic arch and descending thoracic aorta. Normal visualized thoracic spine. Normal visualized ribs, clavicles, and shoulders. There is no demonstrated abnormality of the visualized soft tissue structures of the upper abdomen. RAD/Chest 1 View (Portable) IMPRESSION: Prior CABG. Mild cardiomegaly. Electronically Signed: Raghav Lee MD at 14:24 EDT , Service support ,
--- NOTE | 2021-05-07 14:08 | EDS_ITS ---
HPI History of Present Illness Chief Complaint: Chest Pain Informant: patient and spouse/S.O. Onset/Context/Timing Onset: Days Activity at onset: gradual Timing: Intermittent Quality: Positive for Aching and Heaviness Location: Substernal Current Severity: Mild Maximum Severity: Mild Relieved By: Nothing Associated Symptoms: Positive for Dyspnea; Negative for Nausea, Vomiting, Diaphoresis, Cough, Fever, Lightheadedness and Acid Reflux Narrative Narrative: 51-year-old male with cardiac history consistent with a triple bypass in 2007 at the [facility] in [place]. He also has a total of 3 cardiac stents one done this past February here at [facility] when he had CO at that time. He is on Plavix and aspirin. He denies any history of A. fib or flutter. States for last 2 days he has had mild shortness of breath like he could not catch his breath associated with chest heaviness and tightness. Prior Similar Symptoms: Yes Recent Illness/Hospitalization: No CVD Risk Factors: Positive for Hypertension and Hypercholesterolemia; Negative for Diabetes, Family History 1' </=55 and Smoking PE Risk Factors: Negative for Recent Travel/Surgery, Recent Immobilization, Prior DVT or PE, Cancer and OCP + Smoking + >/=35 TAD Risk Factors: Negative for Marfan's Syndrome and Hypertension [facility] Medical History Asthma Atherosclerosis of coronary artery without angina pectoris Atherosclerotic heart disease of [place] coronary artery without angina pectoris Essential (primary) hypertension Gout History of non-ST elevation myocardial infarction (NSTEMI) (02/26/21) Hyperlipidemia Morbid obesity Non-smoker Type 2 diabetes mellitus Home Medications amlodipine 10 mg PO DAILY 09/25/16 [History Last Taken 09/25/16] aspirin 81 mg PO DAILY 09/25/16 [History Last Taken 09/25/16] hydrochlorothiazide 25 mg PO DAILY 09/25/16 [History Last Taken 09/25/16] clopidogrel 75 mg PO DAILY 02/26/21 [History Last Taken Unknown] losartan 25 mg PO BID 02/26/21 [History Last Taken 02/26/21] potassium chloride 10 meq PO DAILY 02/26/21 [History Last Taken Unknown] rosuvastatin 40 mg PO DAILY 02/26/21 [History Last Taken Unknown] metformin 500 mg PO BID #0 tab 03/01/21 [Rx Last Taken 02/26/21] metoprolol succinate 50 mg tablet,extended release 24 hr 25 mg PO DAILY tab 03/12/21 [History Last Taken Unknown] Allergy/AdvReac Type Severity Reaction Status Date / Time No Known Allergies Allergy Verified 05/07/21 13:20 Surgical History H/O coronary artery bypass surgery (03/30/09) History of coronary artery stent placement (02/28/21) Social History Smoking Status: Never smoker how long ago did patient quit smoking: Does not smoke cigarettes alcohol intake: never ROS ROS ED ROS Narrative Denies recent illness. Review of Systems ROS Unobtainable: Denies due to encephalopathy Constitutional Constitutional ED: Denies chills or fever(s) Eyes Eyes: Denies none ENT ENT ED: Denies ear pain or sore throat Cardiovascular Cardiovascular: Reports as per HPI and chest pain; Denies palpitations or racing heartbeat Respiratory/Chest Respiratory/Chest: Reports dyspnea; Denies cough or sputum Gastrointestinal Gastrointestinal: Denies abdominal pain, nausea or vomiting Genitourinary Genitourinary ED: Denies dysuria Musculoskeletal Musculoskeletal: Denies myalgias Integumentary Denies rash Neurologic Neurologic: Denies headache(s) Psychiatric Psychiatric: Denies depression Endocrine Endocrinology: Denies polyuria Hematologic/Lymphatic Hematologic/Lymphatic: Denies easy bruising Allergic/Immunologic Allergic/Immunologic ED: Denies urticaria EXAM Physical Exam Narrative Exam Narrative: Middle-aged male no acute distress vital signs stable except he is tachycardic and his atrial flutter on the monitor with a rate as high as 136. HEENT exam unremarkable. Lungs are clear equal symmetric bilaterally. Heart irregular irregular rate 100-1 36. Irregularly irregular. Abdomen soft nontender normal bowel sounds no peritoneal signs. Calves are nontender no edema or cords. Neurologically is awake alert with no focal motor deficits. Const Vital Signs: 05/07/21 13:22 05/07/21 13:51 Temperature 96.5 F L Temperature Source Temporal Pulse Rate 80 125 H Respiratory Rate 16 19 H Respiratory Effort Normal Non-Labored Blood Pressure 191/104 H 140/94 H Blood Pressure Mean 133 109 Pulse Ox 97 97 Oxygen Delivery Method Room Air Room Air HEENT Reports moist mucous membranes normocephalic and atraumatic; Negative for trauma or tenderness Eyes PERRL and EOMs intact bilaterally Neck no lymphadenopathy, supple and no JVD General: Negative for tenderness Chest Wall inspection of chest normal and palpation of chest normal Resp normal respiratory effort and clear to auscultation bilaterally Effort and Inspection: respiratory distress Cardio S1 normal heart sound, S2 normal heart sound and no murmurs; Negative for regular rate or regular rhythm Rate: tachycardic Rhythm: abnormal rhythm GI normal to inspection, nondistended, normoactive bowel sounds, soft to palpation, non-tender, non-distended and no masses Auscultation: Negative for hyperactive bowel sounds Back/Spine no CVA tenderness Extremity normal to inspection General Extremety ED: Negative for edema or tenderness General Extremity: Negative for edema Neuro oriented x3 and CN's II-XII intact bilaterally Sensorium / Orientation: awake, alert, oriented to person, oriented to place and oriented to time Motor Exam: strength 5/5 throughout Psych mental status grossly normal Skin no rashes or lesions noted and no wounds Heart Score History: Moderately Suspicious ECG: Significant ST-Depression Age: >45 - <65 years Risk Factors: >/= 3 Risk Factors or History of CAD Troponin: >1 - <3 Normal Limit Score: 7 MDM MDM MDM Narrative Medical decision making narrative: Middle aged male cardiac history with prior double bypass and 3 cardiac stents with new onset atrial flutter RVR with chest pain that could be cardiac in nature. Be treated with Cardizem IV for the new onset atrial flutter RVR and admitted for further evaluation work-up. Repeat exam the patient is doing well at 2:40 PM. Heart rates in the 80s. It seems he is converted back to a sinus rhythm. He is doing well. Hospitalist is on page. Lab Data Attestation: I reviewed the patient's lab results. Lab results narrative: CBC White count 11. Hemoglobin 15. Chemistries unremar kable gap of 8. Creatinine 1.1. Troponins elevated at 463 this is a high- sensitivity troponin. Labs: Laboratory Results - last 24 hr 05/07/21 05/07/21 13:35 13:35 WBC 11.3 H RBC 5.45 Hgb 15.6 Hct 45.6 MCV 83.7 MCH 28.6 MCHC 34.2 RDW Std Deviation 40.6 RDW Coeff of Jolanta 13.4 Plt Count 318 MPV 10.4 Immature Gran % (Auto) 0.400 Neut % (Auto) 79.1 H Lymph % (Auto) 12.0 L [place] % (Auto) 6.2 Eos % (Auto) 1.9 Baso % (Auto) 0.4 Absolute Neuts (auto) 8.9 H Absolute Lymphs (auto) 1.36 Nucleated RBC % 0 Sodium 139 Potassium 3.3 L Chloride 104 Carbon Dioxide 27.0 Anion Gap 8 BUN 9 Creatinine 1.12 Estim Creat Clear Calc 73.77 Est GFR (MDRD) Af Amer 89 Est GFR (MDRD) Non-Af 74 BUN/Creatinine Ratio 8.0 L Glucose 146 H Calcium 9.5 Troponin I High Sens 463.1 H* Radiography Chest X-Ray - ED: 1 View, Read by ED Physician, Lungs, Mediastinum, Bony Structures, No Acute Disease, Chronic Changes and Cardiomegaly Diagnostic Testing: Radiology Impression Chest X-Ray 05/07/21 14:00 IMPRESSION: Prior CABG. Mild cardiomegaly. Electronically Signed: Raghav Lee MD at 14:24 EDT , Service support , Portable chest x-ray showed cardiomegaly chronic changes and prior CABG but no acute process interpreted both by myself and the radiologist. Rhythm Strip Rhythm Strip: A-fib Rate: 136 Ectopy: None EKG Initial EKG: Attestation: I personally reviewed and interpreted this EKG as follows: Interpretation: Atrial Flutter Comments: Atrial flutter with a rate of 136. Prior EKG tracings: not available for review Discharge Plan Triage Chief Complaint: Chest Pain ED Provider: Alec Harris Dx/Rx/DC Orders Clinical Impression: New onset atrial flutter, Chest pain, History of coronary artery disease Prescriptions: No Action metoprolol succinate 50 mg tablet extended release 24 hr 25 mg PO DAILY RF: 0 amlodipine 10 MG tablet 10 mg PO DAILY RF: 0 aspirin 81 MG tablet,chewable 81 mg PO DAILY RF: 0 hydrochlorothiazide 25 MG tablet 25 mg PO DAILY RF: 0 potassium chloride 10 mEq tablet extended release 10 meq PO DAILY RF: 0 clopidogrel 75 mg tablet 75 mg PO DAILY RF: 0 losartan 25 mg tablet 25 mg PO BID RF: 0 rosuvastatin 40 mg tablet 40 mg PO DAILY RF: 0 metformin 500 mg tablet 500 mg PO BID Qty: 0 RF: 0 Referrals: MICHELLE ANGELES [Other] Disposition Disposition: Acute Care Hospital [facility]
[2021-05-07] MEDS: Aspirin 81 MG TAB.CHEW 324 MG PO (14:12)
[2021-05-07] MEDS: dilTIAZem 25 MG/5 ML Vial IV BOLUS (14:15)
[2021-05-07 14:19] LABS: Anion Gap 8 (5-15); BUN 9 mg/dL (7-18); Calcium,Total 9.5 mg/dL (8.5-10.1); Chloride 104 mmol/L (98-107); Creatinine, Serum 1.12 mg/dL (0.70-1.30); EST Glomerular Filtration Rate 74 mL/min (>60); Est Glom Filt Rate - Afr Amer 89 mL/min (>60); Estimated Creatinine Clearance 73.77 ml/min; Glucose 146 mg/dL (74-106); Potassium 3.3 mmol/L (3.5-5.1); Sodium Level 139 mmol/L (136-145); Troponin-I HS 463.1 pg/mL (3.0-78.5)
--- NOTE | 2021-05-07 15:02 | PCM.HP.STD ---
HPI - General General Date of Admission: 05/07/21 Date of Service: 05/07/21 Chief Complaint: Chest pressure, dyspnea. HPI Narrative The patient is a 51 y/o M w/ PMHx: CAD s/p CABG x 3 and PCI with most recent intervention PCI distal RCA 02/2021, HTN, HLD, Pre-Diabetes mellitus type II, Morbid obesity who presents to the [facility] ED on 05/07/21 with history of intermittent chest discomfort described as an achiness and heaviness over the last 2 days with associated dyspnea, worse with exertion with sensation that he cannot catch his breath with no associated nausea, emesis, diaphoresis, substernal in location with no radiation prompting eventual ED evaluation. He does notes since spontaneous conversion pain has completely resolved as well as dyspnea. He noted initially discomfort 4-03/05. Work-up in the ED included T 96.5, heart rate 125, BP initially 191/104 with improvement to 140/94, respiratory rate 16, 97% on room air, EKG with initial atrial flutter with RVR treated with IV Cardizem in the ED with spontaneous conversion to sinus rhythm with repeat EKG confirmative at 2:40 PM, CBC with WBC 11.3, hemoglobin 15.6, platelet 318 with left shift, BMP with potassium 3.3, glucose 146, troponin 463.1, chest x-ray with evidence prior CABG mild cardiomegaly with otherwise no acute cardiopulmonary findings. In the ED patient started aspirin 324 mg p.o. x1 as well as Tylenol and Cardizem bolus 25 mg IV x1. [facility] Medical History (Updated 05/07/21 @ 15:[address] Kiya Sherman MD) Asthma Atherosclerosis of coronary artery without angina pectoris Atherosclerotic heart disease of [place] coronary artery without angina pectoris Atrial fibrillation Essential (primary) hypertension Gout High cholesterol History of non-ST elevation myocardial infarction (NSTEMI) (02/26/21) Hyperlipidemia Irregular heart beat Morbid obesity Myocardial infarct Non-smoker Smoker Type 2 diabetes mellitus Home Medications amlodipine 10 mg PO DAILY 09/25/16 [History Last Taken 09/25/16] aspirin 81 mg PO DAILY 09/25/16 [History Last Taken 09/25/16] hydrochlorothiazide 25 mg PO DAILY 09/25/16 [History Last Taken 09/25/16] clopidogrel 75 mg PO DAILY 02/26/21 [History Last Taken Unknown] losartan 25 mg PO BID 02/26/21 [History Last Taken 02/26/21] potassium chloride 10 meq PO DAILY 02/26/21 [History Last Taken Unknown] rosuvastatin 40 mg PO DAILY 02/26/21 [History Last Taken Unknown] metformin 500 mg PO BID #0 tab 03/01/21 [Rx Last Taken 02/26/21] metoprolol succinate 50 mg tablet,extended release 24 hr 25 mg PO DAILY tab 03/12/21 [History Last Taken Unknown] Allergy/AdvReac Type Severity Reaction Status Date / Time No Known Allergies Allergy Verified 05/07/21 13:20 Family History (Updated 05/07/21 @ 15:[address] Kiya Sherman MD) Father CAD (coronary artery disease) Heart disease Hypertension Mother Heart disease Hypertension Surgical History (Updated 05/07/21 @ 15:10 by Cindy Mantilla) H/O cardiac catheterization H/O coronary artery bypass surgery (03/30/09) History of coronary artery stent placement (02/28/21) Social History (Updated 05/07/21 @ 15:[address] Kiya Sherman MD) household members: significant other Smoking Status: Current some day smoker tobacco type: cigars per week: 2 alcohol intake: never substance use type: does not use ROS ROS Narrative Admission Review of Systems: CONSTITUTIONAL: No weight loss, fever, chills, + weakness or fatigue. HEENT: Eyes: No visual loss, blurred vision, double vision or yellow sclerae. Ears, Nose, Throat: No hearing loss, sneezing, congestion, runny nose or sore throat. SKIN: No rash or itching, lesions, wounds. CARDIOVASCULAR: + chest pain, chest pressure or chest discomfort, palpitations, No edema, orthopnea, syncopal events. RESPIRATORY: + shortness of breath, No cough or sputum, wheezing, hemoptysis. GASTROINTESTINAL: No anorexia, nausea, vomiting or diarrhea, abdominal pain, melena, BRBPR. GENITOURINARY: No dysuria, frequency, urgency or retention. NEUROLOGICAL: No headache, dizziness, syncope, paralysis, ataxia, numbness or tingling in the extremities, focal weakness, change in bowel or bladder control, seizure. MUSCULOSKELETAL: No muscle, back pain, joint pain or stiffness. HEMATOLOGIC: No anemia, bleeding or bruising. LYMPHATICS: No enlarged nodes. No history of splenectomy. PSYCHIATRIC: No history of depression or anxiety. ENDOCRINOLOGIC: No reports of sweating, cold or heat intolerance. No polyuria or polydipsia. ALLERGIES: No history of asthma, hives, eczema or rhinitis. Vital Signs Vital Signs Vital Signs: 05/07/21 13:22 05/07/21 13:51 Temperature 96.5 F L Temperature Source Temporal Pulse Rate 80 125 H Respiratory Rate 16 19 H Respiratory Effort Normal Non-Labored Blood Pressure 191/104 H 140/94 H Blood Pressure Mean 133 109 Pulse Ox 97 97 Oxygen Delivery Method Room Air Room Air Weight Weight: 326 lb 8.073 oz Body Mass Index (BMI) 51.1 Physical Exam Narrative Physical Examination: General: Awake, alert, oriented x 3 and cooperative, seated upright in the ED bed, notes chest discomfort and dyspnea have resolved, recent conversion to sinus rhythm from atrial flutter with RVR. Skin: Normal color, normal turgor, no icterus, no cyanosis. HEENT: AT/NC, EOMI, PERRLA, MMM, no carotid bruits or JVD noted; however, thickened neck makes examination difficult. Lungs: Diminished, greater bases, distant, appropriate effort, no rales, ronchi or wheezing. Heart: Recent spontaneous conversion sinus rhythm, currently regular rate and rhythm; no gallop, rub audible. Abdomen: Soft, morbidly obese, NTTP, difficult to assess distention given habitus, distant normal BS, no obvious HSM however habitus makes examination difficult. Extremities: No cyanosis, clubbing, or edema. Neurological: Patient awake, alert, oriented as noted, cognitive function intact; pupils equally reactive to light and accommodation, cranial nerves II-XII grossly normal, moving all 4 extremities, no focal deficits, strength preserved. Psychiatric: Affect appears fatigued otherwise normal, no acute evidence of depressive or anxiety feelings. Results Lab / Micro Data Result Diagrams: 05/07/21 13:35 05/07/21 13:35 Labs: Laboratory Results - last 24 hr 05/07/21 13:35: WBC 11.3 H, RBC 5.45, Hgb 15.6, Hct 45.6, MCV 83.7, MCH 28.6, MCHC 34.2, RDW Std Deviation 40.6, RDW Coeff of Jolanta 13.4, Plt Count 318, MPV 10.4, Immature Gran % (Auto) 0.400, Neut % (Auto) 79.1 H, Lymph % (Auto) 12.0 L, Yates % (Auto) 6.2, Eos % (Auto) 1.9, Baso % (Auto) 0.4, Absolute Neuts (auto) 8.9 H, Absolute Lymphs (auto) 1.36, Nucleated RBC % 0 05/07/21 13:35: Sodium 139, Potassium 3.3 L, Chloride 104, Carbon Dioxide 27.0, Anion Gap 8, BUN 9, Creatinine 1.12, Estim Creat Clear Calc 73.77, Est GFR (MDRD) Af Amer 89, Est GFR (MDRD) Non-Af 74, BUN/Creatinine Ratio 8.0 L, Glucose 146 H, Calcium 9.5, Troponin I High Sens 463.1 H* Rhythm Strip Rhythm Strip: A-fib Rate: 136 Ectopy: None Radiology Impression Chest X-Ray 05/07/21 14:00 IMPRESSION: Prior CABG. Mild cardiomegaly. Electronically Signed: Raghav Lee MD at 14:24 EDT , Service support , Assessment & Plan Assessment/Plan (1) New onset atrial flutter: (2) Chest pain: QUALIFIERS: Chest pain type: unspecified Qualified Code(s): R07.9 - Chest pain, unspecified PLAN: The patient is a 51 y/o M w/ PMHx: CAD s/p CABG x 3 and PCI with most recent intervention PCI distal RCA 02/2021, HTN, HLD, Pre-Diabetes mellitus type II, Morbid obesity who presents to the [facility] ED on 05/07/21 with history of intermittent chest discomfort described as an achiness and heaviness and dyspnea x 48 hours. 1. New onset, Paroxsymal atrial flutter with associated elevated cardiac enzyme: EKG in ED w/ atrial flutter w/ RVR. Patient administered IV Cardizem bolus in ED with eventual spontaneous conversion to sinus rhythm at approximately 2:40 PM. Will admit to PCU, maintain on telemetry, obtain cardiac enzyme serial set, obtain magnesium level, 02/27/2021 echocardiogram with grossly normal LV size, wall motion, systolic function, EF 55%, mildly enlarged LA, trivial MVI, trivial TVI, no evidence for diastolic dysfunction, obtain TSH level. CHADs scoring appropriate for anticoagulation start at this time w/ lovenox pending discussions with case management/social work for insurance cost and will defer to Cardiology if d/c preference. Cardiology consulted per ED and discussed case, pending evaluation. 2. Hypokalemia: Admission K+ 3.3, supplementation given, magnesium pending, repeat level in AM. 3. CAD w/ Hx WA: Status post CABG with ROSE to LAD, YUMIKO to lateral circumflex, SVG to ramus branch 2008 as well as prior PCI most recently stenting to the distal RCA 02/2021, will continue asa, plavix, statin, metoprolol, losartan. 4. Pre-Diabetes mellitus type II: Hold oral home regimen, ADA diet, accu checks w/ ISS. 5. Hypertension: Continue home regimen including metoprolol, losartan, hydrochlorothiazide, amlodipine with hold parameters, PRN hydralazine. 6. Hyperlipidemia: Continue home statin regimen. AM FLP. 7. Morbid Obesity: Weight loss and lifestyle changes encouraged, nutrition consulted. 8. Tobacco Abuse: Encouraged cigar tobacco cessation, inpatient consultation per RT. 9. DVT prophylaxis: SCDs, therapeutic lovenox pending cardiology assessment as well as case management/social work discussion for cost for NOACs. 10. CODE status: Patient does not have healthcare power of assistant prosecuting attorney nor living will set up but discussed at length as patient does currently have a girlfriend with whom he lives but also has an ex-. Patient does have significant underlying comorbidities despite his young age. Discussed CODE status at length including difference between FULL code, DNR-CCA and DNR-CC status. Following discussions about the differences in these status, requested Full Code. Patient very specifically states that if he could not make any medical decisions he would prefer that Jacquie Keys, his girlfriend make these decisions in his stead. Advanced Care Planning Face to Face Time: 16 minutes. Charges/Coding Visit Charges OBSV E&M: 90774 Initial observation care L3 Procedures Hospitalists Procedures: [id number] Advncd Care Plan 30 Min
[2021-05-07] MEDS: Potassium Chloride Oral Tablet 20 MEQ 40 MEQ PO (16:31)
[2021-05-07 16:39] LABS: Magnesium 1.8 mg/dL (1.6-2.6); Thyroid Stim Hormone (TSH) 1.23 uIU/mL (0.358-3.74)
[2021-05-07 16:40] LABS: Bedside Glucose 107 mg/dL (70-110)
--- NOTE | 2021-05-07 16:40 | CON.PCM.CA_ITS ---
Assessment & Plan Assessment/Plan (1) New onset atrial flutter: PLAN: Patient presents at this time with recent onset atrial flutter. He appears to have spontaneously converted to sinus rhythm with the aid of intravenous diltiazem. He has spontaneously converted and he does have a chads vasc2 score of at least 2. Ideally he is a candidate for anticoagulation. He will need to be on triple therapy for at least 3 months which poses a risk for bleeding however age appears to be on his side. * This is the first episode of atrial flutter. I would recommend watching him overnight and then performing an outpatient Holter or event monitor. If he has a recurrence of the above rhythm I would strongly urged anticoagulation. * I would recommend increasing his beta-keith to 100 mg a day. (2) History of coronary artery stent placement: PLAN: He is status post recent angioplasty and stenting of the distal right coronary artery. He has had mild elevation of his cardiac enzymes which I suspect are secondary to demand ischemia. * He does not appear to have any significant angina at this time. I would recommend that we continue to observe him for now. (3) H/O coronary artery bypass surgery: PLAN: He is status post coronary artery bypass surgery as we noted above. 2 of his 3 bypass grafts are occluded. He however continues to have preserved left ventricular systolic function. We will continue with aggressive risk factor modification. (4) Essential (primary) hypertension: PLAN: He was hypertensive when he presented but his blood pressure appears to be under better control. (5) Hyperlipidemia: PLAN: He will continue with aggressive risk factor modification and lipid- lowering. Thank you for allowing me to participate in the care of your patient. Please don't hesitate to call if any issues arise. HPI Consult Data Date of Consult: 05/07/21 HPI Narrative HPI Narrative: WILBUR QUINTEROS, is a 51 M who presents to the emergency room with palpitations and an uncomfortable feeling in his chest. He says that this was different from when he presented with unstable angina about 2 months ago. He is a gentleman with a history of coronary artery bypass surgery over 12 years ago with a ROSE to the LAD, YUMIKO to the circumflex artery and saphenous vein graft obtuse marginal branch. He had undergone cardiac catheterization in February of this year and his YUMIKO and saphenous vein graft were occluded with a presumably opened ROSE to the LAD. His distal right coronary artery had disease for which he underwent angioplasty and stenting. He has apparently felt well since then but a few days ago started having this uncomfortable feeling in his chest with palpitations. He also has a history of hypertension, hyperlipidemia, obesity, diabetes mellitus. He has been compliant with all his medications. In the emergency room he was noted to be in atrial flutter with a rapid ventricular response rate, and he was treated with intravenous diltiazem. He subsequently spontaneously converted to sinus rhythm and said that he is feeling of discomfort improved almost immediately. Cardiac enzymes were noted to be mildly abnormal. Cardiology was called for follow-up and evaluation. At this [facility] ticular time he appears to be free of significant symptoms. [facility] Medical History Asthma Atherosclerosis of coronary artery without angina pectoris Atherosclerotic heart disease of [place] coronary artery without angina pectoris Atrial fibrillation Essential (primary) hypertension Gout High cholesterol History of non-ST elevation myocardial infarction (NSTEMI) (02/26/21) Hyperlipidemia Irregular heart beat Morbid obesity Myocardial infarct Non-smoker Smoker Type 2 diabetes mellitus Home Medications amlodipine 10 mg PO DAILY 09/25/16 [History Last Taken 05/07/21] aspirin 81 mg PO DAILY 09/25/16 [History Last Taken 05/07/21] hydrochlorothiazide 25 mg PO DAILY 09/25/16 [History Last Taken 05/07/21] clopidogrel 75 mg PO DAILY 02/26/21 [History Last Taken 05/07/21] losartan 25 mg PO BID 02/26/21 [History Last Taken 05/07/21] potassium chloride 10 meq PO DAILY 02/26/21 [History Last Taken 05/07/21] rosuvastatin 40 mg PO DAILY 02/26/21 [History Last Taken 05/07/21] metformin 500 mg PO BID #0 tab 03/01/21 [Rx Last Taken 05/07/21] metoprolol succinate 50 mg tablet,extended release 24 hr 25 mg PO DAILY tab 03/12/21 [History Last Taken 05/07/21] Allergy/AdvReac Type Severity Reaction Status Date / Time No Known Allergies Allergy Verified 05/07/21 13:20 Family History Father CAD (coronary artery disease) Heart disease Hypertension Mother Heart disease Hypertension Surgical History H/O cardiac catheterization H/O coronary artery bypass surgery (03/30/09) History of coronary artery stent placement (02/28/21) Social History household members: significant other Smoking Status: Current some day smoker tobacco type: cigars per week: 2 alcohol intake: never substance use type: does not use ROS Constitutional Constitutional: Denies fever(s) or weight loss Eyes Eyes: Reports systems reviewed and no addt'l complaints, except as documented ENT HEENT: Reports systems reviewed and no addt'l complaints, except as documented Cardiovascular Cardiovascular: Reports chest pain and flutter in chest Respiratory/Chest Respiratory/Chest: Reports other Gastrointestinal Gastrointestinal: Denies change in bowel habits, nausea, vomiting or weight changes Genitourinary Genitourinary: Denies difficulty urinating Musculoskeletal Musculoskeletal: Denies joint stiffness or muscle weakness Integumentary Integumentary: Denies lesions Neurologic Neurologic: Denies dizziness or syncope Psychiatric Psychiatric: Denies anxiety Endocrine Endocrinology: Denies excessive sweating or fatigue Hematologic/Lymphatic Hematologic/Lymphatic: Denies anemia Allergic/Immunologic Allergic/Immunologic: Denies seasonal rhinorrhea Physical Exam Const oriented x3 and healthy appearing Orientation / Consciousness: awake HEENT normocephalic Eyes PERRL and conjunctivae normal Neck supple, no JVD and no carotid bruits Chest inspection of chest normal Resp normal respiratory effort and clear to auscultation bilaterally Cardio Palpation: normal PMI Rate: regular rate Rhythm: regular rhythm Heart Sounds: S1 normal and S2 normal Peripheral Pulses: pulses 2+ throughout GI normal to inspection, nondistended, normoactive bowel sounds Extremity normal to inspection and no clubbing, cyanosis or edema Psych mental status grossly normal Objective Data Vital Signs: Vital Signs Temp Pulse Resp BP Pulse Ox 98.2 F 57 L 16 113/76 99 05/07/21 16:03 05/07/21 16:18 05/07/21 16:03 05/07/21 16:03 05/07/21 16:03 Oxygen Delivery Method Room Air Weight: 322 lb Body Mass Index (BMI) 50.4 Lab / Micro Data Result Diagrams: 05/07/21 13:35 05/07/21 13:35 Labs: Laboratory Results - last 24 hr 05/07/21 13:35: WBC 11.3 H, RBC 5.45, Hgb 15.6, Hct 45.6, MCV 83.7, MCH 28.6, MCHC 34.2, RDW Std Deviation 40.6, RDW Coeff of Jolanta 13.4, Plt Count 318, MPV 1 0.4, Immature Gran % (Auto) 0.400, Neut % (Auto) 79.1 H, Lymph % (Auto) 12.0 L, [place] % (Auto) 6.2, Eos % (Auto) 1.9, Baso % (Auto) 0.4, Absolute Neuts (auto) 8.9 H, Absolute Lymphs (auto) 1.36, Nucleated RBC % 0 05/07/21 13:35: Sodium 139, Potassium 3.3 L, Chloride 104, Carbon Dioxide 27.0, Anion Gap 8, BUN 9, Creatinine 1.12, Estim Creat Clear Calc 73.77, Est GFR (MDRD) Af Amer 89, Est GFR (MDRD) Non-Af 74, BUN/Creatinine Ratio 8.0 L, Glucose 146 H, Calcium 9.5, Troponin I High Sens 463.1 H* 05/07/21 13:35: Magnesium 1.8, TSH 1.23 05/07/21 16:30: POC Glucose 107 Rhythm Strip Rhythm Strip: A-fib Rate: 136 Ectopy: None Cardiology Labs/Tests 05/07/21 13:35: WBC 11.3 H, RBC 5.45, Hgb 15.6, Hct 45.6, MCV 83.7, MCH 28.6, MCHC 34.2, Plt Count 318, MPV 10.4, Immature Gran % (Auto) 0.400, Neut % (Auto) 79.1 H, Lymph % (Auto) 12.0 L, [place] % (Auto) 6.2, Eos % (Auto) 1.9, Baso % (Auto) 0.4, Absolute Neuts (auto) 8.9 H, Nucleated RBC % 0 05/07/21 13:35: Sodium 139, Potassium 3.3 L, Chloride 104, Carbon Dioxide 27.0, Anion Gap 8, BUN 9, Creatinine 1.12, Est GFR (MDRD) Af Amer 89, Est GFR (MDRD) Non-Af 74, BUN/Creatinine Ratio 8.0 L, Glucose 146 H, Calcium 9.5 05/07/21 13:35: Magnesium 1.8 Rhythm: Rhythm strip on presentation demonstrated atrial flutter with a rate of 138 bpm. EKG: ECHO: Stress Test: Cardiac Cath: As noted above PCI: CT Surgery: Holter monitor: EPS: PPM: CXR: Chest CT Scan: Radiography Diagnostic Testing: Radiology Impression Chest X-Ray 05/07/21 14:00 IMPRESSION: Prior CABG. Mild cardiomegaly. Electronically Signed: Raghav Lee MD at 14:24 EDT , Service support ,
[2021-05-07 17:22] LABS: Troponin-I HS 543.7 pg/mL (3.0-78.5)
[2021-05-07] MEDS: Enoxaparin 150 MG/ML Syringe SC (18:34)
[2021-05-07] MEDS: Losartan Potassium 25 MG Tablet PO (21:02)
[2021-05-07 21:30] LABS: Bedside Glucose 109 mg/dL (70-110)
[2021-05-07 21:44] LABS: Troponin-I HS 734.3 pg/mL (3.0-78.5)
[2021-05-08 02:49] VITALS: BP 147/78; PULSE 53; RESP 18; TEMP 36.6; O2SAT 98
--- NOTE | 2021-05-08 02:50 | NURSING ---
pt awake. requesting a snack . cookies given
[2021-05-08 03:28] VITALS: PULSE 55
--- NOTE | 2021-05-08 05:55 | EKG12_ITS ---
Test Reason : AM EKG Blood Pressure : / mmHG Vent. Rate : 048 BPM Atrial Rate : 048 BPM P-R Int : 198 ms QRS Dur : 102 ms QT Int : 498 ms P-R-T Axes : 021 059 099 degrees QTc Int : 444 ms Sinus bradycardia Nonspecific T wave abnormality Abnormal ECG Confirmed by SASCHA TRUJILLO, BEL ([id number]), scientific editor JORDAN PATTERSON ([id number]) on 05/09/2021 11:53:23 AM Referred By: MAGGIE Confirmed By:BEL CAICEDO MD
[2021-05-08 06:11] LABS: Absolute Lymphocyte Count 1.63 X10^3/uL (0.83-4.51); Absolute Neutrophil Count 6.4 X10^3/uL (2.0-7.7); Basophil# 0.05 X10^3/uL; Basophil% 0.6 % (0-1); Eosinophil# 0.24 X10^3/uL; Eosinophils% 2.7 % (0-5); Hematocrit 41.6 % (40-54); Hemoglobin 13.5 g/dL (13.0-16.5); Lymphocyte # 1.63 X10^3/ul (0.83-4.51); Lymphocyte % 18.2 % (19-41); Mean Corp Hgb Conc 32.5 g/dL (32-36); Mean Corpuscular Hgb 28.7 pg (27.0-32.0); Mean Corpuscular Volume 88.3 fL (80-94); Mean Platelet Vol. 10.4 fl (6.2-12.0); Monocyte# 0.61 X10^3/uL; Monocyte% 6.8 % (0-10); NRBC Flagged by Analyzer 0 % (0-5); Neutrophil # 6.42 X10^3/uL (2.7-7.7); Neutrophil % 71.5 % (47-70); Platelet Count 265 K/mm3 (150-450); RBC Distribution Width CV 13.6 % (11.6-14.6); RBC Distribution Width SD 43.9 fl (35.1-43.9); Red Blood Count 4.71 M/mm3 (4.6-6.2)
--- NOTE | 2021-05-08 06:19 | PN.HOSP_ITS ---
Objective Data Objective Data Vital Signs: Vital Signs Temp Pulse Resp BP Pulse Ox 97.8 F 55 L 18 147/78 H 98 05/08/21 02:49 05/08/21 03:28 05/08/21 02:49 05/08/21 02:49 05/08/21 02:49 Oxygen Delivery Method Room Air Weight: 322 lb Body Mass Index (BMI) 50.4 Intake & Output: Intake and Output for Last 24 Hours 05/06/21 05/07/21 05/08/21 23:59 23:59 23:59 Intake Total 680 / 680 320 / 320 Balance 680 / 680 320 / 320 Lab / Micro Data Result Diagrams: 05/08/21 05:40 05/07/21 13:35 Labs: Laboratory Results - last 24 hr 05/07/21 13:35: WBC 11.3 H, RBC 5.45, Hgb 15.6, Hct 45.6, MCV 83.7, MCH 28.6, MCHC 34.2, RDW Std Deviation 40.6, RDW Coeff of Jolanta 13.4, Plt Count 318, MPV 10.4, Immature Gran % (Auto) 0.400, Neut % (Auto) 79.1 H, Lymph % (Auto) 12.0 L, [place] % (Auto) 6.2, Eos % (Auto) 1.9, Baso % (Auto) 0.4, Absolute Neuts (auto) 8.9 H, Absolute Lymphs (auto) 1.36, Nucleated RBC % 0 05/07/21 13:35: Sodium 139, Potassium 3.3 L, Chloride 104, Carbon Dioxide 27.0, Anion Gap 8, BUN 9, Creatinine 1.12, Estim Creat Clear Calc 73.77, Est GFR (MDRD) Af Amer 89, Est GFR (MDRD) Non-Af 74, BUN/Creatinine Ratio 8.0 L, Glucose 146 H, Calcium 9.5, Troponin I High Sens 463.1 H* 05/07/21 13:35: Magnesium 1.8, TSH 1.23 05/07/21 16:30: POC Glucose 107 05/07/21 16:57: Troponin I High Sens 543.7 H* 05/07/21 20:42: Troponin I High Sens 734.3 H* 05/07/21 21:00: POC Glucose 109 05/08/21 05:40: WBC 9.0, RBC 4.71, Hgb 13.5, Hct 41.6, MCV 88.3 D, MCH 28.7, MCHC 32.5, RDW Std Deviation 43.9, RDW Coeff of Jolanta 13.6, Plt Count 265, MPV 10.4, Immature Gran % (Auto) 0.200, Neut % (Auto) 71.5 H, Lymph % (Auto) 18.2 L, [place] % (Auto) 6.8, Eos % (Auto) 2.7, Baso % (Auto) 0.6, Absolute Neuts (auto) 6.4, Absolute Lymphs (auto) 1.63, Nucleated RBC % 0 Radiography Diagnostic Testing: Radiology Impression Chest X-Ray 05/07/21 14:00 IMPRESSION: Prior CABG. Mild cardiomegaly. Electronically Signed: Raghav Lee MD at 14:24 EDT , Service support , Rhythm Strip Rhythm Strip: A-fib Rate: 136 Ectopy: None
[2021-05-08] MEDS: Enoxaparin 40 MG/0.4 ML Syringe SC (06:33)
[2021-05-08 06:35] LABS: Bedside Glucose 111 mg/dL (70-110)
[2021-05-08 06:56] LABS: ALB/GLOB Ratio 0.7 RATIO (0.9-2.4); AST(SGOT) 24 U/L (15-37); Alanine Aminotransfer ALT/SGPT 32 U/L (16-61); Albumin, Serum 3.2 g/dL (3.2-5.0); Alkaline Phosphatase 84 U/L (45-117); Anion Gap 4 (5-15); BUN 14 mg/dL (7-18); Chloride 103 mmol/L (98-107); Creatinine, Serum 1.17 mg/dL (0.70-1.30); EST Glomerular Filtration Rate 70 mL/min (>60); Est Glom Filt Rate - Afr Amer 85 mL/min (>60); Estimated Creatinine Clearance 70.62 ml/min; Globulin 4.5 g/dL (2.2-4.2); Glucose 130 mg/dL (74-106); Potassium 3.7 mmol/L (3.5-5.1); Protein, Total 7.7 g/dL (6.4-8.2); Sodium Level 137 mmol/L (136-145)
[2021-05-08 07:11] VITALS: PULSE 48
--- NOTE | 2021-05-08 07:34 | DS.PCM_ITS ---
Providers Date of Admission: 05/07/21 Primary Care Physician: MICHELLE ANGELES Consultations 05/07/21 15:56 Consult: Cardiology Routine Consulting Provider: Kris Barroso Reason for Consult: Recent PCI, CABG hx, chest pain w/ new PAflutter, elevated trop EMERGENT Consult: No MD Notified: Yes Date Notified: 05/07/21 Time Notified: 15:18 Method of Notification: called per ED. Reason For Visit: PAFLUTTER W/RVR Diagnosis Discharge Diagnosis (1) New onset atrial flutter: Status: Acute Code(s): I48.92 - Unspecified atrial flutter (2) History of coronary artery stent placement: Status: Resolved Code(s): Z95.5 - Presence of coronary angioplasty implant and graft (3) H/O coronary artery bypass surgery: Status: Resolved Code(s): Z95.1 - Presence of aortocoronary bypass graft (4) Essential (primary) hypertension: Status: Chronic Code(s): I10 - Essential (primary) hypertension (5) Hyperlipidemia: Status: Chronic Code(s): E78.5 - Hyperlipidemia, unspecified Medications at Discharge Home Medications amlodipine 10 mg PO DAILY 09/25/16 aspirin 81 mg PO DAILY 09/25/16 hydrochlorothiazide 25 mg PO DAILY 09/25/16 clopidogrel 75 mg PO DAILY 02/26/21 losartan 25 mg PO BID 02/26/21 potassium chloride 10 meq PO DAILY 02/26/21 rosuvastatin 40 mg PO DAILY 02/26/21 metformin 500 mg PO BID #0 tab 03/01/21 metoprolol succinate 50 mg PO BID 30 Days #60 tab 05/08/21 Hospital Course Operations None Procedures EKG Summary of Care Provided Minutes Spent on Discharge: 35 Hospital Course: Discharge Diagnoses: 1. New onset, Paroxsymal atrial flutter with associated elevated cardiac enzyme 2. Hypokalemia 3. CAD w/ Hx PR, Status post CABG with ROSE to LAD, YUMIKO to lateral circumflex, SVG to ramus branch 2008 as well as prior PCI most recently stenting to the dist al RCA 02/2021 4. Pre-Diabetes mellitus type II 5. Hypertension 6. Hyperlipidemia 7. Morbid Obesity 8. Tobacco Abuse 9. Possible VIANEY Discharge Summary: The patient is a 51 y/o M w/ PMHx: CAD s/p CABG x 3 and PCI with most recent intervention PCI distal RCA 02/2021, HTN, HLD, Pre-Diabetes mellitus type II, Morbid obesity who presented to the [facility] ED on 05/07/21 with history of intermittent chest discomfort described as an achiness and heaviness over the last 2 days with associated dyspnea, worse with exertion with sensation that he cannot catch his breath with no associated nausea, emesis, diaphoresis, substernal in location with no radiation prompting eventual ED evaluation. He does notes since spontaneous conversion pain has completely resolved as well as dyspnea. He noted initially discomfort 4-03/05. Work-up in the ED included T 96.5, heart rate 125, BP initially 191/104 with improvement to 140/94, respiratory rate 16, 97% on room air, EKG with initial atrial flutter with RVR treated with IV Cardizem in the ED with spontaneous conversion to sinus rhythm with repeat EKG confirmative at 2:40 PM, CBC with WBC 11.3, hemoglobin 15.6, platelet 318 with left shift, BMP with potassium 3.3, glucose 146, troponin 463.1, chest x-ray with evidence prior CABG mild cardiomegaly with otherwise no acute cardiopulmonary findings. In the ED patient started aspirin 324 mg p.o. x1 as well as Tylenol and Cardizem bolus 25 mg IV x1. Patient was admitted the PCU, maintained on telemetry and remained in sinus rhythm with serial cardiac enzymes, normal TSH, normal magnesium. 02/27/2021 echocardiogram with grossly normal LV size, wall motion, systolic function, EF 55%, mildly enlarged LA, triv ial MVI, trivial TVI, no evidence for diastolic dysfunction therefore it was not repeated. Cardiology evaluated the patient and recommended continued antiplatelet therapy but deferral of anticoagulation and less recurrent events. Cardiology did increase patient beta-keith therapy and set up patient at discharge for Holter monitor. Given clinical improvement with resolution of any chest discomfort, dyspnea with spontaneous conversion to sinus rhythm, patient discharged to home in stable condition with plan follow-up with PCP, cardiology and also pulmonary medicine for sleep apnea testing set up. Discharge Time: > 35 Minutes DAY OF DISCHARGE PROGRESS NOTE: Subjective: Patient without acute event overnight per self and nursing report. Patient remained in sinus rhythm and denied any further chest discomfort, pressure or dyspnea. Patient denies fever, chills, nausea, emesis, abdominal pain. Patient agreeable to discharge to home and eager. Patient will be discharged with follow-up with primary care physician within 3-5 days in addition to follow-up with cardiology and pulmonary medicine to assess for sleep apnea. Objective: T 97.7, heart rate 55, BP 127/69, respiratory rate 16, 97% on room air. Physical Examination: General: awake, alert, oriented x 3 and cooperative, seated upright in the PCU bedside chair, no acute distress, no further chest discomfort or dyspnea. Skin: normal color, turgor, no icterus, cyanosis. HEENT: AT/NC, EOMI, PERRLA, MMM. Lungs: CTA bilaterally, moderate effort, mild decrease BL bases, no rales, ronchi or wheezing; Heart: Mildly bradycardic with regular rhythm; no gallop, rub audible. Abdomen: soft, morbidly obese, NTTP, ND, normal BS. Extremities: no cyanosis, clubbing, or edema. Neurological: patient awake, alert, oriented as noted; cognitive function appears intact upon questioning,; pupils equally reactive to light and accomodation; cranial nerves II-XII grossly normal, moving all 4 extremities, strength appropriate. Psychiatric: affect appears normal, no acute evidence of depressive or anxiety feelings. Assessment and Plan: Please see hospital summary above. Weight / BMI Weight Weight: 322 lb Body Mass Index (BMI) 50.4 ABG / Lab / Microbiology Data Result Diagrams: 05/08/21 05:40 05/08/21 05:40 Laboratory: Laboratory Results - last 24 hr 05/07/21 13:35: WBC 11.3 H, RBC 5.45, Hgb 15.6, Hct 45.6, MCV 83.7, MCH 28.6, MCHC 34.2, RDW Std Deviation 40.6, RDW Coeff of Jolanta 13.4, Plt Count 318, MPV 10 .4, Immature Gran % (Auto) 0.400, Neut % (Auto) 79.1 H, Lymph % (Auto) 12.0 L, [place] % (Auto) 6.2, Eos % (Auto) 1.9, Baso % (Auto) 0.4, Absolute Neuts (auto) 8.9 H, Absolute Lymphs (auto) 1.36, Nucleated RBC % 0 05/07/21 13:35: Sodium 139, Potassium 3.3 L, Chloride 104, Carbon Dioxide 27.0, Anion Gap 8, BUN 9, Creatinine 1.12, Estim Creat Clear Calc 73.77, Est GFR (MDRD) Af Amer 89, Est GFR (MDRD) Non-Af 74, BUN/Creatinine Ratio 8.0 L, Glucose 146 H, Calcium 9.5, Troponin I High Sens 463.1 H* 05/07/21 13:35: Magnesium 1.8, TSH 1.23 05/07/21 16:30: POC Glucose 107 05/07/21 16:57: Troponin I High Sens 543.7 H* 05/07/21 20:42: Troponin I High Sens 734.3 H* 05/07/21 21:00: POC Glucose 109 05/08/21 05:40: WBC 9.0, RBC 4.71, Hgb 13.5, Hct 41.6, MCV 88.3 D, MCH 28.7, MCHC 32.5, RDW Std Deviation 43.9, RDW Coeff of Jolanta 13.6, Plt Count 265, MPV 10.4, Immature Gran % (Auto) 0.200, Neut % (Auto) 71.5 H, Lymph % (Auto) 18.2 L, [place] % (Auto) 6.8, Eos % (Auto) 2.7, Baso % (Auto) 0.6, Absolute Neuts (auto) 6.4, Absolute Lymphs (auto) 1.63, Nucleated RBC % 0 05/08/21 05:40: Sodium 137, Potassium 3.7, Chloride 103, Carbon Dioxide 30.0, Anion Gap 4 L, BUN 14, Creatinine 1.17, Estim Creat Clear Calc 70.62, Est GFR (M DRD) Af Amer 85, Est GFR (MDRD) Non-Af 70, BUN/Creatinine Ratio 12.0, Glucose 130 H, Calcium 9.0, Total Bilirubin 0.30, AST 24, ALT 32, Alkaline Phosphatase 84, Total Protein 7.7, Albumin 3.2, Globulin 4.5 H, Albumin/Globulin Ratio 0.7 L 05/08/21 06:29: POC Glucose 111 H Radiography Diagnostic Testing: Radiology Impression Chest X-Ray 05/07/21 14:00 IMPRESSION: Prior CABG. Mild cardiomegaly. Electronically Signed: Raghav Lee MD at 14:24 EDT , Service support , Meaningful Use Info Meaningful Use Diagnoses (Choose all that apply): None applicable Discharge Plan Admission Admit Date/Time: 05/07/21 15:17 Primary Reason for Your Visit: New onset Paroxsymal Atrial Flutter, Elevated Cardiac Enzymes Attending Provider: Kiya Sherman Consulting Providers: Kris Barroso Instructions Patient Instructions: What Is Atrial Flutter/Atrial Fibrillation?, What Are Snoring and Sleep Apnea?, ED How to Quit Smoking Additional Instructions / Restrictions: Holter monitor will be set up and followed by Dr. Barroso. Discharge Orders/Prescriptions Prescriptions: New metoprolol succinate 50 mg Tablet Extended Release 24 Hr 50 mg PO BID 30 Days Qty: 60 RF: 1 Continued amlodipine 10 MG tablet 10 mg PO DAILY RF: 0 aspirin 81 MG tablet,chewable 81 mg PO DAILY RF: 0 hydrochlorothiazide 25 MG tablet 25 mg PO DAILY RF: 0 potassium chloride 10 mEq tablet extended release 10 meq PO DAILY RF: 0 clopidogrel 75 mg tablet 75 mg PO DAILY RF: 0 losartan 25 mg tablet 25 mg PO BID RF: 0 rosuvastatin 40 mg tablet 40 mg PO DAILY RF: 0 metformin 500 mg tablet 500 mg PO BID Qty: 0 RF: 0 Discontinued metoprolol succinate 50 mg tablet extended release 24 hr 25 mg PO DAILY RF: 0 Referrals / Follow Up: MICHELLE ANGELES [Other] (Follow-up in 3-5 days to review admission.) Kris Barroso MD [STAFF PHYSICIAN] - 06/01/21 1:30 pm (Please follow-up in 2-4 weeks.) Brando Leroy DO [STAFF PHYSICIAN] - (Please set-up follow-up for VIANEY assess ment. Prefer within 2-4 weeks if able.) Disposition Disposition (needs filled in before D/C Order can be placed): Home, Self Care Charges/Coding Visit Charges OBSV E&M: 61196 Observation care discharge
[2021-05-08 08:34] VITALS: BP 127/69; PULSE 54; RESP 16; TEMP 36.5; O2SAT 97
--- NOTE | 2021-05-08 08:37 | PCM.DC ---
Discharge Instructions Diet Discharge Diet: Low fat / Low cholesterol Activity Discharge Activity: Return to Normal Activity Dressing / Incision Call your doctor if you observe: Fever of 101 or Higher, Shortness of breath, Dizziness, Fainting spells, Chest pain, Prolonged hiccupping, Increased palpitations (irregular heartbeat) and Uncontrolled pain Follow Up Care Test Results: Test results from this visit will be discussed in further detail at your follow-up appointment, if applicable. Discharge Plan Admission Admit Date/Time: 05/07/21 15:17 Primary Reason for Your Visit: New onset Paroxsymal Atrial Flutter, Elevated Cardiac Enzymes Attending Provider: Kiya Sherman Consulting Providers: Kris Barroso Instructions Patient Instructions: What Is Atrial Flutter/Atrial Fibrillation?, What Are Snoring and Sleep Apnea?, ED How to Quit Smoking Additional Instructions / Restrictions: Holter monitor will be set up and followed by Dr. Barroso. Discharge Orders/Prescriptions Prescriptions: New metoprolol succinate 50 mg Tablet Extended Release 24 Hr 50 mg PO BID 30 Days Qty: 60 RF: 1 Continued amlodipine 10 MG tablet 10 mg PO DAILY RF: 0 aspirin 81 MG tablet,chewable 81 mg PO DAILY RF: 0 hydrochlorothiazide 25 MG tablet 25 mg PO DAILY RF: 0 potassium chloride 10 mEq tablet extended release 10 meq PO DAILY RF: 0 clopidogrel 75 mg tablet 75 mg PO DAILY RF: 0 losartan 25 mg tablet 25 mg PO BID RF: 0 rosuvastatin 40 mg tablet 40 mg PO DAILY RF: 0 metformin 500 mg tablet 500 mg PO BID Qty: 0 RF: 0 Discontinued metoprolol succinate 50 mg tablet extended release 24 hr 25 mg PO DAILY RF: 0 Referrals / Follow Up: MICHELLE ANGELES [Other] (Follow-up in 3-5 days to review admission.) Kris Barroso MD [STAFF PHYSICIAN] - (Please follow-up in 2-4 weeks.) Brando Leroy DO [STAFF PHYSICIAN] - (Please set-up follow-up for VIANEY assessment. Prefer within 2-4 weeks if able.) Disposition Disposition (needs filled in before D/C Order can be placed): Home, Self Care
[2021-05-08] MEDS: Aspirin 81 MG TAB.CHEW PO (08:39)
[2021-05-08 08:40] VITALS: PULSE 55
[2021-05-08] MEDS: Potassium Chloride Oral Tablet 10 MEQ PO (08:40)
[2021-05-08] MEDS: Metoprolol(XL)Succ 50 MG Tablet PO (08:40)
[2021-05-08] MEDS: hydroCHLOROthiazide 25 MG Tablet PO (08:40)
[2021-05-08] MEDS: Clopidogrel Bisulfate 75 MG Tablet PO (08:40)
[2021-05-08] MEDS: amLODIPine 10 MG Tablet PO (08:40)
[2021-05-08] MEDS: Atorvastatin Calcium 80 MG Tablet PO (08:40)
[2021-05-08] MEDS: Losartan Potassium 25 MG Tablet PO (08:40)
--- NOTE | 2021-05-08 10:12 | PHA.DC.MR ---
Pharmacy Service has performed discharge medication reconciliation for this patient. The patient's discharge medication list was reviewed for discrepancies and discrepancies were resolved. Home Medications amlodipine 10 mg PO DAILY 09/25/16 aspirin 81 mg PO DAILY 09/25/16 hydrochlorothiazide 25 mg PO DAILY 09/25/16 clopidogrel 75 mg PO DAILY 02/26/21 losartan 25 mg PO BID 02/26/21 potassium chloride 10 meq PO DAILY 02/26/21 rosuvastatin 40 mg PO DAILY 02/26/21 metformin 500 mg PO BID #0 tab 03/01/21 metoprolol succinate 50 mg PO BID 30 Days #60 tab 05/08/21
== END 2021-05-08 09:50 | disposition home or self-care (01) ==
LOC: ED 14:47 → PCU 15:26
PROVIDERS: Admitting Provider Family Medicine; Emergency Provider Emergency Medicine; Visit Provider Family Medicine
DX: R07.89 Other chest pain (principal); I48.92 Unspecified atrial flutter; I10 Essential (primary) hypertension; E78.5 Hyperlipidemia, unspecified; I25.10 Atherosclerotic heart disease of native coronary artery without angina pectoris; F17.290 Nicotine dependence, other tobacco product, uncomplicated; E66.01 Morbid (severe) obesity due to excess calories; Z68.43 Body mass index [BMI] 50.0-59.9, adult; E87.6 Hypokalemia; I25.2 Old myocardial infarction; E11.9 Type 2 diabetes mellitus without complications; J45.909 Unspecified asthma, uncomplicated; Z95.5 Presence of coronary angioplasty implant and graft; Z95.1 Presence of aortocoronary bypass graft; Z79.899 Other long term (current) drug therapy; Z79.84 Long term (current) use of oral hypoglycemic drugs; Z79.82 Long term (current) use of aspirin
CPT/HCPCS: 36415; 71045; 80048; 80053; 82962; 83735; 84443; 84484; 85025; 93005; 96372; 99218; 99251; 99285; 99406; A4216; G0378; G0463

== ENCOUNTER → 2021-05-17 08:18 | Outpatient (CLI) | payer OTHER, SELFPAY ==
[2021-05-07 16:01] VITALS: BMI 50.4
== END ==
PROVIDERS: Referring Provider Internal Medicine Cardiovascular Disease; Visit Provider Internal Medicine Cardiovascular Disease
DX: I48.92 Unspecified atrial flutter (principal); R07.9 Chest pain, unspecified; Z86.79 Personal history of other diseases of the circulatory system
CPT/HCPCS: 93225; 93226

== ENCOUNTER 2021-05-22 06:12 | Inpatient (IN) | payer OTHER, SELFPAY ==
[2021-05-07 16:01] VITALS: BMI 50.4
[2021-05-22] VITALS (27 sets, daily range): BP systolic 122–233; BP diastolic 50–117; PULSE 48–163; RESP 12–30; TEMP 36.4–37.1; O2SAT 93–100; BMI 51.5
--- NOTE | 2021-05-22 06:26 | EKG12_ITS ---
Test Reason : CP Blood Pressure : / mmHG Vent. Rate : 116 BPM Atrial Rate : 192 BPM P-R Int : 000 ms QRS Dur : 102 ms QT Int : 356 ms P-R-T Axes : 000 103 076 degrees QTc Int : 494 ms Atrial fibrillation with rapid ventricular response Rightward axis ST elevation consider inferior injury or acute infarct ACUTE GA / STEMI Abnormal ECG Confirmed by SASCHA TRUJILLO, BEL ([id number]), newspaper or periodical editor JORDAN PATTERSON ([id number]) on 05/24/2021 9:59:27 AM Referred By: Emili More Confirmed By:BEL CAICEDO MD
--- NOTE | 2021-05-22 06:26 | RAD_ITS ---
STUDY: X-RAY CHEST REASON FOR EXAM: Male, 51 years old. Chest pain TECHNIQUE: Single AP portable view of the chest. COMPARISON: May 07, 2021 chest x-ray FINDINGS: The lungs are clear and expanded. There is no demonstrated pleural abnormality. Sternal cerclage wires are present from a prior sternotomy. Normal mediastinum and [place]ia [place]. Normal visualized pulmonary arteries. Normal visualized aortic arch and descending thoracic aorta. Normal visualized thoracic spine. Normal visualized ribs, clavicles, and shoulders. There is no demonstrated abnormality of the visualized soft tissue structures of the upper abdomen. RAD/Chest 1 View (Portable) IMPRESSION: No demonstrated acute cardiopulmonary process. Electronically Signed: Taryn Snow MD at 7:16 EDT Tel , Service support ,
--- NOTE | 2021-05-22 06:28 | EDS_ITS ---
HPI History of Present Illness Chief Complaint: Palpitations Detail of Chief Complaint: Chest tightness Informant: patient and spouse/S.O. Onset/Context/Timing Onset: Today and Hours Activity at onset: gradual Timing: Continuous Quality: Positive for Heaviness and Tightness Location: Substernal Current Severity: Mild Maximum Severity: Moderate Worsened By: Nothing Relieved By: Nothing Associated Symptoms: Positive for Nausea, Vomiting, Diaphoresis and Dyspnea; Negative for Cough, Fever, Lightheadedness and Acid Reflux Narrative Narrative: 51-year-old male history of 3 prior MIs with 3 cardiac stents and prior triple bypass done at [facility] in 2008. Also has a known history of A. fib RVR and was admitted for that around a week ago. Also history of hypertension high cholesterol. He is on Plavix and aspirin. Patient states he woke up this morning he was short of breath with chest tightness. He broke out in a sweat and also had nausea and vomiting. States his heart was rapid and he thought it was secondary to his A. fib. Prior Similar Symptoms: Yes Recent Illness/Hospitalization: Yes CVD Risk Factors: Positive for Hypertension, Diabetes and Hypercholesterolemia; Negative for Smoking PE Risk Factors: Positive for Recent Immobilization; Negative for Recent Travel/Surgery, Prior DVT or PE, Cancer and OCP + Smoking + >/=35 TAD Risk Factors: Positive for Hypertension; Negative for Marfan's Syndrome [facility] Medical History Asthma Atherosclerosis of coronary artery without angina pectoris Atherosclerotic heart disease of [place] coronary artery without angina pectoris Atrial fibrillation Essential (primary) hypertension Gout History of coronary artery disease History of non-ST elevation myocardial infarction (NSTEMI) (02/26/21) Hyperlipidemia Irregular heart beat Morbid obesity Myocardial infarct New onset atrial flutter Non-smoker Smoker Type 2 diabetes mellitus Home Medications amlodipine 10 mg PO DAILY 09/25/16 [History Last Taken 05/07/21] aspirin 81 mg PO DAILY 09/25/16 [History Last Taken 05/07/21] hydrochlorothiazide 25 mg PO DAILY 09/25/16 [History Last Taken 05/07/21] clopidogrel 75 mg PO DAILY 02/26/21 [History Last Taken 05/07/21] losartan 25 mg PO BID 02/26/21 [History Last Taken 05/07/21] potassium chloride 10 meq PO DAILY 02/26/21 [History Last Taken 05/07/21] rosuvastatin 40 mg PO DAILY 02/26/21 [History Last Taken 05/07/21] metformin 500 mg PO BID #0 tab 03/01/21 [Rx Last Taken 05/07/21] metoprolol succinate 50 mg PO BID 30 Days #60 tab 05/08/21 [Rx Last Taken Unknown] Allergy/AdvReac Type Severity Reaction Status Date / Time No Known Allergies Allergy Verified 05/22/21 06:14 Family History Father CAD (coronary artery disease) Heart disease Hypertension Mother Heart disease Hypertension Surgical History H/O cardiac catheterization H/O coronary artery bypass surgery (03/30/09) History of coronary artery stent placement (02/28/21) Social History household members: significant other Smoking Status: Current some day smoker tobacco type: cigars per week: 2 alcohol intake: never substance use type: does not use ROS ROS ED ROS Narrative Denies recent illness. Review of Systems ROS Unobtainable: Denies due to encephalopathy Constitutional Constitutional ED: Denies chills or fever(s) Eyes Eyes: Denies none ENT ENT ED: Denies ear pain or sore throat Cardiovascular Cardiovascular: Reports as per HPI, chest pain, palpitations and racing heartbeat Respiratory/Chest Respiratory/Chest: Reports dyspnea; Denies cough or sputum Gastrointestinal Gastrointestinal: Reports nausea and vomiting; Denies abdominal pain, diarrhea or melena Genitourinary Genitourinary ED: Denies dysuria Musculoskeletal Musculoskeletal: Denies myalgias Integumentary Denies rash Neurologic Neurologic: Denies headache(s) Psychiatric Psychiatric: Denies depression Endocrine Endocrinology: Denies polyuria Hematologic/Lymphatic Hematologic/Lymphatic: Denies easy bruising Allergic/Immunologic Allergic/Immunologic ED: Denies urticaria EXAM Physical Exam Narrative Exam Narrative: Middle-age male vital signs are stable as initial blood pressure is elevated to 33/117. His heart rates between 110 and 135 consistent with A. fib RVR. Pulse ox 98% on oxygen no hypoxia. Afebrile. HEENT exam unremarkable he is diaphoretic. Neck nontender. No JVD. Lungs clear to auscultation. Heart irregularly irregular rate about 120 consistent with A. fib. Abdomen soft nontender normal bowel sounds no peritoneal signs. Moving all 4 extremities. Calves nontender. Neurologically is awake and alert with no focal motor deficits. Const Vital Signs: 05/22/21 06:15 05/22/21 06:19 05/22/21 06:22 Temperature 98.8 F Temperature Source Oral Pulse Rate 110 H Respiratory Rate 24 H 20 H Respiratory Effort Normal Respiratory Pattern Normal Blood Pressure 233/117 H 233/117 H Blood Pressure Mean 155 Pulse Ox 98 Oxygen Delivery Method Room Air 05/22/21 06:26 05/22/21 06:28 05/22/21 06:38 Temperature Temperature Source Pulse Rate 139 H 143 H Respiratory Rate 25 H 20 H Respiratory Effort Respiratory Pattern Blood Pressure 223/117 H 165/87 H Blood Pressure Mean 152 113 Pulse Ox 96 96 Oxygen Delivery Method Room Air Room Air Room Air Positive well nourished, well developed and obese General Appearance ED: well developed Nutritional Appearance: obese HEENT Reports moist mucous membranes normocephalic and atraumatic; Negative for trauma or tenderness Eyes PERRL Neck no lymphadenopathy, supple and no JVD General: Negative for tenderness Chest Wall inspection of chest normal and palpation of chest normal Resp normal respiratory effort and clear to auscultation bilaterally Effort and Inspection: respiratory distress Auscultation: Negative for rales, rhonchi or wheezes Cardio Rate: other Other Details: A. fib rate about 120. Irregularly irregular. GI normal to inspection, nondistended, normoactive bowel sounds, soft to palpation, non-tender and non-distended Extremity normal to inspection General Extremety ED: Negative for edema or tenderness General Extremity: Negative for edema Neuro oriented x3 Sensorium / Orientation: awake, alert, oriented to person, oriented to place and oriented to time Psych mental status grossly normal Skin no rashes or lesions noted and no wounds General Skin Exam: Negative for jaundice Heart Score History: Highly Suspicious ECG: Significant ST-Depression Age: >45 - <65 years Risk Factors: >/= 3 Risk Factors or History of CAD Score: 7 MDM MDM MDM Narrative Medical decision making narrative: 51-year-old male with significant cardiac history on Plavix and aspirin. Known history of A. fib. Presents with A. fib RVR. Also with chest pain and concerning EKG for ST elevation in leads II, III, aVF and ST depression in lead aVL. We have called a STEMI team on the patient. Of already spoken to the casing in line feeder. He will be started on a Cardizem drip. Given aspirin and heparin bolus 5000 units. This will be treated as an acute inferior NM. Patient is being prepared for the Seat Pack Inspector. I discussed at length with both he and his . ER nursing staff along with myself escorted the patient down to the cardiac catheterization lab where he is being prepared for an emergent cardiac catheterization. Lab Data Attestation: I reviewed the patient's lab results. Lab results narrative: CBC shows a white count 9. Hemoglobin 15. INR 1. Labs: Laboratory Results - last 24 hr 05/22/21 05/22/21 06:22 06:35 WBC 9.1 RBC 5.32 Hgb 15.2 Hct 45.8 MCV 86.1 MCH 28.6 MCHC 33.2 RDW Std Deviation 41.3 RDW Coeff of Jolanta 13.3 Plt Count 278 MPV 10.2 Immature Gran % (Auto) 0.200 Neut % (Auto) 72.4 H Lymph % (Auto) 15.8 L [place] % (Auto) 8.2 Eos % (Auto) 3.0 Baso % (Auto) 0.4 Absolute Neuts (auto) 6.6 Absolute Lymphs (auto) 1.44 Nucleated RBC % 0 PT 13.9 INR 1.1 Radiography Chest X-Ray - ED: 1 View, Read by ED Physician, Heart, Lungs, Mediastinum, Bony Structures and No Acute Disease Diagnostic Testing: Portable 1 view chest x-ray interpreted by myself shows no acute abnormality. Prior sternotomy. Borderline cardiomegaly. No infiltrates. No pulmonary edema. Rhythm Strip Rhythm Strip: A-fib Rate: 116 EKG Initial EKG: Attestation: I personally reviewed and interpreted this EKG as follows: Interpretation: Atrial Fibrillation, S-T Elevation and S-T Depression Comments: A. fib RVR rate of 116. With ST elevation in leads II, III and aVF consistent with acute inferior NM with ST depression in aVL and also V2 and V3. This is an acute change from most recent EKG from May 08. Prior: Changed Treatment and Re-Evaluation Comments:: This will be treated as an acute inferior NM and also A. fib RVR. Patient will be placed on Cardizem drip. Treated with p.o. aspirin and heparin bolus. I discussed all this with the casing in line feeder on-call who is coming in to evaluate the patient taken to the cardiac catheterization lab. Critical Care Time Critical Care Time: Yes Critical care time (excluding procedures): 30-74 minutes, Including time spent:, Discussing w/Patient &/or Family/Wood Stock Blank Handler, Discussing w/Consultants, Arranging Admission or Transfer, Performing Direct Patient Care at Bedside and - (Critical care time 32 minutes.) Discharge Plan Dx/Rx/DC Orders Clinical Impression: Acute inferior myocardial infarction, Atrial fibrillation with rapid ventricular response, History of coronary artery disease, History of diabetes mellitus Disposition Disposition: Acute Care Hospital [facility]
[2021-05-22] MEDS: Heparin Injection (Vial) 5,000 UNIT/ML VIAL 5000 UNIT IV (06:29)
[2021-05-22] MEDS: Aspirin 81 MG TAB.CHEW 324 MG PO (06:29)
[2021-05-22 06:35] LABS: Absolute Lymphocyte Count 1.44 X10^3/uL (0.83-4.51); Absolute Neutrophil Count 6.6 X10^3/uL (2.0-7.7); Basophil# 0.04 X10^3/uL; Basophil% 0.4 % (0-1); Eosinophil# 0.27 X10^3/uL; Hematocrit 45.8 % (40-54); Hemoglobin 15.2 g/dL (13.0-16.5); Lymphocyte # 1.44 X10^3/ul (0.83-4.51); Lymphocyte % 15.8 % (19-41); Mean Corp Hgb Conc 33.2 g/dL (32-36); Mean Corpuscular Hgb 28.6 pg (27.0-32.0); Mean Corpuscular Volume 86.1 fL (80-94); Mean Platelet Vol. 10.2 fl (6.2-12.0); Monocyte# 0.75 X10^3/uL; Monocyte% 8.2 % (0-10); NRBC Flagged by Analyzer 0 % (0-5); Neutrophil # 6.58 X10^3/uL (2.7-7.7); Neutrophil % 72.4 % (47-70); Platelet Count 278 K/mm3 (150-450); RBC Distribution Width CV 13.3 % (11.6-14.6); RBC Distribution Width SD 41.3 fl (35.1-43.9); Red Blood Count 5.32 M/mm3 (4.6-6.2); White Blood Count 9.1 K/mm3 (4.4-11.0)
[2021-05-22 06:48] LABS: International Normalized Ratio 1.1; Prothrombin Time (Protime)PT. 13.9 SECONDS (11.7-14.9)
[2021-05-22 06:52] LABS: Anion Gap 6 (5-15); BUN 11 mg/dL (7-18); BUN/Creat Ratio 9.2 RATIO (10-20); Chloride 106 mmol/L (98-107); EST Glomerular Filtration Rate 68 mL/min (>60); Est Glom Filt Rate - Afr Amer 82 mL/min (>60); Estimated Creatinine Clearance 68.85 ml/min; Glucose 166 mg/dL (74-106); Potassium 3.3 mmol/L (3.5-5.1); Sodium Level 140 mmol/L (136-145); Troponin-I HS 13.2 pg/mL (3.0-78.5)
[2021-05-22 06:52] LABS: Partial Thromboplast Time 157.5 Seconds (24.1-36.2)
--- NOTE | 2021-05-22 09:00 | EKG12_ITS ---
Test Reason : POST CATH Blood Pressure : / mmHG Vent. Rate : 060 BPM Atrial Rate : 060 BPM P-R Int : 180 ms QRS Dur : 100 ms QT Int : 426 ms P-R-T Axes : 005 083 110 degrees QTc Int : 426 ms Normal sinus rhythm T wave abnormality, consider lateral ischemia Abnormal ECG When compared with ECG of 22-MAY-2021 06:13, MANUAL COMPARISON REQUIRED, DATA IS UNCONFIRMED Confirmed by ALISTAIR TRUJILLO, YARELIS ([id number]), supervising editor news reel JORDAN PATTERSON ([id number]) on 05/28/2021 10:41:23 AM Referred By: Emili More Confirmed By:UMU MORE MD
--- NOTE | 2021-05-22 09:03 | PCM.CONS.C ---
Assessment & Plan Assessment/Plan (1) Atrial fibrillation with rapid ventricular response: PLAN: Patient converted to sinus rhythm. I think it will be reasonable to stop his aspirin and start him on Eliquis. Continue Plavix. Will be reasonable to add Cardizem 60 mg p.o. every 6 hours in addition to his other medications at this time. If his blood pressure is too low then we can stop his hydrochlorothiazide and if needed his losartan as well. Continue metoprolol also at this time. (2) History of coronary artery disease: PLAN: Patient has history of CABG in the past. 2 out of 3 bypass grafts are known to be occluded and not injected this time. His ROSE to LAD is patent. He does have a 60% stenosis in the RCA proximal to the prior stent. If patient has anginal symptoms when he is not in A. fib with RVR or significantly hypertensive then we will consider either PCI of this lesion or FFR. We are stopping his aspirin to allow for Eliquis. HPI Consult Data Date of Consult: 05/22/21 HPI Narrative HPI Narrative: .WILBUR QUINTEROS, is a 51 M who presents with chest tightness and shortness of breath that woke him up this morning. Patient had a similar presentation about 2 weeks ago when he was in the hospital with A. fib with RVR. When he was in the hospital he converted to sinus rhythm and has remained asymptomatic since then till this morning when he developed his symptoms. When he presented to the emergency room he was found to be in A. fib with RVR and his blood pressure was also significantly elevated. He did have ST changes in the inferior leads that were suspicious for inferior NC. He was brought emergently to the [facility] and did not have any culprit lesions for a STEMI. While he was on the cath table he converted to sinus rhythm and his chest tightness resolved. Review of systems: All systems reviewed. All else is negative except that in HPI. [facility] Medical History Asthma Atherosclerosis of coronary artery without angina pectoris Atherosclerotic heart disease of [place] coronary artery without angina pectoris Atrial fibrillation Essential (primary) hypertension Gout History of coronary artery disease History of non-ST elevation myocardial infarction (NSTEMI) (02/26/21) Hyperlipidemia Irregular heart beat Morbid obesity Myocardial infarct New onset atrial flutter Non-smoker Smoker Type 2 diabetes mellitus Home Medications amlodipine 10 mg PO DAILY 09/25/16 [History Last Taken 05/07/21] aspirin 81 mg PO DAILY 09/25/16 [History Last Taken 05/07/21] hydrochlorothiazide 25 mg PO DAILY 09/25/16 [History Last Taken 05/07/21] clopidogrel 75 mg PO DAILY 02/26/21 [History Last Taken 05/07/21] losartan 25 mg PO BID 02/26/21 [History Last Taken 05/07/21] potassium chloride 10 meq PO DAILY 02/26/21 [History Last Taken 05/07/21] rosuvastatin 40 mg PO DAILY 02/26/21 [History Last Taken 05/07/21] metformin 500 mg PO BID #0 tab 03/01/21 [Rx Last Taken 05/07/21] metoprolol succinate 50 mg PO BID 30 Days #60 tab 05/08/21 [Rx Last Taken Unknown] Allergy/AdvReac Type Severity Reaction Status Date / Time No Known Allergies Allergy Verified 05/22/21 06:14 Family History Father CAD (coronary artery disease) Heart disease Hypertension Mother Heart disease Hypertension Surgical History H/O cardiac catheterization H/O coronary artery bypass surgery (03/30/09) History of coronary artery stent placement (02/28/21) Social History household members: significant other Smoking Status: Current some day smoker tobacco type: cigars per week: 2 alcohol intake: never substance use type: does not use Physical Exam Const alert and oriented x3 Orientation / Consciousness: awake HEENT normocephalic Eyes no scleral icterus Chest inspection of chest normal Resp normal respiratory effort Cardio Cardio Narrative: Irregular rhythm Skin no rashes or lesions noted Neuro oriented x3 Psych mental status grossly normal Charges/Coding Visit Charges Inpatient E&M: 51601 Init Hosp L3 Objective Data Vital Signs: Vital Signs Temp Pulse Resp BP Pulse Ox 98.8 F 63 30 H 165/87 H 97 05/22/21 06:53 05/22/21 08:15 05/22/21 06:53 05/22/21 06:53 05/22/21 06:53 Oxygen Delivery Method Room Air Weight: 328 lb 14.875 oz Body Mass Index (BMI) 51.5 Lab / Micro Data Result Diagrams: 05/22/21 06:22 05/22/21 06:22 Labs: Laboratory Results - last 24 hr 05/22/21 06:22: WBC 9.1, RBC 5.32, Hgb 15.2, Hct 45.8, MCV 86.1, MCH 28.6, MCHC 33.2, RDW Std Deviation 41.3, RDW Coeff of Jolanta 13.3, Plt Count 278, MPV 10.2, Immature Gran % (Auto) 0.200, Neut % (Auto) 72.4 H, Lymph % (Auto) 15.8 L, [place] % (Auto) 8.2, Eos % (Auto) 3.0, Baso % (Auto) 0.4, Absolute Neuts (auto) 6.6, Absolute Lymphs (auto) 1.44, Nucleated RBC % 0 05/22/21 06:22: Sodium 140, Potassium 3.3 L, Chloride 106, Carbon Dioxide 28.0, Anion Gap 6, BUN 11, Creatinine 1.20, Estim Creat Clear Calc 68.85, Est GFR (MDRD) Af Amer 82, Est GFR (MDRD) Non-Af 68, BUN/Creatinine Ratio 9.2 L, Glucose 166 H, Calcium 9.0, Troponin I High Sens 13.2 05/22/21 06:35: PT 13.9, INR 1.1, APTT 157.5 H* Rhythm Strip Rhythm Strip: A-fib Rate: 116 Cardiology Labs/Tests 05/22/21 06:22: WBC 9.1, RBC 5.32, Hgb 15.2, Hct 45.8, MCV 86.1, MCH 28.6, MCHC 33.2, Plt Count 278, MPV 10.2, Immature Gran % (Auto) 0.200, Neut % (Auto) 72.4 H, Lymph % (Auto) 15.8 L, [place] % (Auto) 8.2, Eos % (Auto) 3.0, Baso % (Auto) 0.4, Absolute Neuts (auto) 6.6, Nucleated RBC % 0 05/22/21 06:22: Sodium 140, Potassium 3.3 L, Chloride 106, Carbon Dioxide 28.0, Anion Gap 6, BUN 11, Creatinine 1.20, Est GFR (MDRD) Af Amer 82, Est GFR (MDRD) Non-Af 68, BUN/Creatinine Ratio 9.2 L, Glucose 166 H, Calcium 9.0 05/22/21 06:35: PT 13.9, INR 1.1, APTT 157.5 H* Rhythm: EKG: ECHO: Stress Test: Cardiac Cath: PCI: CT Surgery: Holter monitor: EPS: PPM: CXR: Chest CT Scan: Radiography Diagnostic Testing: Radiology Impression Chest X-Ray 05/22/21 06:26 IMPRESSION: No demonstrated acute cardiopulmonary process. Electronically Signed: Taryn Snow MD at 7:16 EDT Tel , Service support ,
--- NOTE | 2021-05-22 10:48 | CL.D_ITS ---
Patient Name: WILBUR QUINTEROS Study Date: 05/22/2021 Performing: Benny More MD Ht: 66.92 inches 170 cm : 1970 Wt: 328.49 lbs 149 kg Age: 51 Gender: male BSA: 2.49 PROCEDURE(S) PERFORMED [id number] CLINICAL PROFILE AND INDICATIONS Indications: ACS <= 24 hrs Heart Failure: None Stress/Imaging Stress/Image Study Performed: No CAD Presentations: Other: suspected STEMI CONCLUSIONS CAD as described with no significant change from prior post PCI images. Patent 1/3 bypass grafts RECOMMENDATIONS If patient has symptoms when he is not in A fib with RVR or with uncontrolled HTN then we can conside r PCI/FFR of RCA DESCRIPTION OF PROCEDURE The patient arrived to the procedure lab. The risks and benefits of the procedure as well as a full d escription of our services here and current unavailability of surgical backup were fully explained to the patient and/or their significant other prior to the catheterization. The Timeout was completed, verifying the correct patient and procedure. The patient's procedural site was prepped and draped in the usual fashion. Local anesthetic was given subcutaneously to right groin region with Lidocaine 2%. Using a modified Seldinger technique, arterial access was obtained via the right femoral artery, a 6 Fr sheath was inserted. Right Coronary Artery selective angiography was then performed in multiple v iews using a 5 Fr. JR 4 catheter. Left internal mammary artery graft to the LAD selective angiography was performed in multiple views using a 5 Fr. JR 4 catheter. Left Coronary Artery selective angiogra phy was performed in multiple views using a 5 Fr. JL4 catheter.Contrast was injected through the sheath and the Right Iliac and Femoral artery were assessed for possible closure device.T he arterial sheath was pulled and a Perclose closure device was deployed for hemostasis CORONARY ANGIOGRAPHY DOMINANCE: Right Dominant LEFT MAIN: Mild luminal irregularities LEFT ANTERIOR DESCENDING ARTERY: MID LAD: is occluded DIAGONAL 1: Proximal - moderate diffuse disease CIRCUMFLEX ARTERY: Mild luminal irregularities OM 1: Ostial - is occluded RIGHT CORONARY ARTERY: DISTAL RCA: 60 % Stenosis GRAFTS: ROSE graft to the Mid LAD is patent. Other bypass grafts are reported to be occluded in prior angiog anup in 03/16 COMPLICATIONS No Complications PROCEDURE MEDICATIONS Oxygen: 2 L/min via nasal cannula Cardizem 10 mg/hr 05/22/2021 07:26:45 Zofran 4 mg IV 05/22/2021 07:55:06 SUMMARY OF HEMODYNAMIC DATA Time AIR REST ECG 06:51:49 AO 212/96 (127) SA 07:14:57 AO 130/90 (114) 07:32:01 Signed By Benny More MD On 05/22/2021 10:47:44 AM Benny More MD
[2021-05-22] MEDS: dilTIAZem 60 MG Tablet PO ×3 (12:12→23:21)
[2021-05-22 12:25] LABS: Bedside Glucose 115 mg/dL (70-110)
--- NOTE | 2021-05-22 14:41 | PCM.HP.STD ---
HPI - General General Date of Admission: 05/22/21 Date of Service: 05/22/21 Chief Complaint: palpitations HPI Narrative WILBUR QUINTEROS, is a 51 M who presents to the ER at [facility] with complaints of palpitations and chest tightness. KG was obtained in the emergency room which showed ST elevation changes in the inferior leads with atrial fibrillation and a STEMI was called, patient was taken to the [facility] but there was not occlusive coronary disease noted which needed intervention-patient had a 60% occlusion of the right coronary artery but there was no evidence of thrombus. Patient spontaneously converted to normal sinus rhythm. Patient's troponin was not elevated. Cardiology felt that the patient had hypertensive emergency along with recurrent atrial fibrillation, he was transferred to the ICU under PCU status after his cardiac catheterization. [facility] Medical History Asthma Atherosclerosis of coronary artery without angina pectoris Atherosclerotic heart disease of [place]anga coronary artery without angina pectoris Atrial fibrillation Essential (primary) hypertension Gout History of coronary artery disease History of non-ST elevation myocardial infarction (NSTEMI) (02/26/21) Hyperlipidemia Irregular heart beat Morbid obesity Myocardial infarct New onset atrial flutter Non-smoker Smoker Type 2 diabetes mellitus Home Medications amlodipine 10 mg PO DAILY 09/25/16 [History Last Taken 05/07/21] aspirin 81 mg PO DAILY 09/25/16 [History Last Taken 05/07/21] hydrochlorothiazide 25 mg PO DAILY 09/25/16 [History Last Taken 05/07/21] clopidogrel 75 mg PO DAILY 02/26/21 [History Last Taken 05/07/21] losartan 25 mg PO BID 02/26/21 [History Last Taken 05/07/21] potassium chloride 10 meq PO DAILY 02/26/21 [History Last Taken 05/07/21] rosuvastatin 40 mg PO DAILY 02/26/21 [History Last Taken 05/07/21] metformin 500 mg PO BID #0 tab 03/01/21 [Rx Last Taken 05/07/21] metoprolol succinate 50 mg PO BID 30 Days #60 tab 05/08/21 [Rx Last Taken Unknown] Allergy/AdvReac Type Severity Reaction Status Date / Time No Known Allergies Allergy Verified 05/22/21 06:14 Family History Father CAD (coronary artery disease) Heart disease Hypertension Mother Heart disease Hypertension Surgical History H/O cardiac catheterization H/O coronary artery bypass surgery (03/30/09) History of coronary artery stent placement (02/28/21) Social History household members: significant other Smoking Status: Current some day smoker tobacco type: cigars per week: 2 alcohol intake: never substance use type: does not use ROS Constitutional Constitutional: Denies anorexia, change in weight, chills, fatigue, fever(s), malaise, night sweats or weakness Eyes Eyes: Denies blurry vision, change in vision, discharge from eye(s) or double vision ENT HEENT: Denies abnormal hearing, dysphagia, ear pain, epistaxis, headache(s) or hearing loss Cardiovascular Cardiovascular: Reports chest pain and palpitations; Denies dyspnea on exertion, edema or lightheadedness Respiratory/Chest Respiratory/Chest: Denies cough, dyspnea, excessive phlegm production, hemoptysis or productive cough Gastrointestinal Gastrointestinal: Denies abdominal pain, coffee ground emesis, constipation, dyspepsia or hematemesis Genitourinary Genitourinary: Denies burning urination, difficulty urinating or urinary frequency Musculoskeletal Musculoskeletal: Denies arthralgias, back pain, joint pain or joint stiffness Neurologic Neurologic: Denies abnormal gait, abnormal speech or dizziness Psychiatric Psychiatric: Denies anxiety or depression Endocrine Endocrinology: Denies change in body appearance, cold intolerance, excessive sweating or heat intolerance Hematologic/Lymphatic Hematologic/Lymphatic: Denies anemia, easy bleeding, easy bruising or lymphadenopathy Allergic/Immunologic Allergic/Immunologic: Denies hives, eczemia or asthma Vital Signs Vital Signs Vital Signs: 05/22/21 06:15 05/22/21 06:19 05/22/21 06:22 Temperature 98.8 F Temperature Source Oral Pulse Rate 110 H Respiratory Rate 24 H 20 H Respiratory Effort Normal Respiratory Pattern Normal Blood Pressure 233/117 H 233/117 H Blood Pressure [BP] Blood Pressure Mean 155 Blood Pressure Mean [BP] Blood Pressure Source Blood Pressure Source [BP] Blood Pressure Position Blood Pressure Position [BP] Blood Pressure Location Blood Pressure Location [BP] Pulse Ox 98 Oxygen Delivery Method Room Air Oxygen Flow Rate (L/min) 05/22/21 06:26 05/22/21 06:28 05/22/21 06:38 Temperature Temperature Source Pulse Rate 139 H 143 H Respiratory Rate 25 H 20 H Respiratory Effort Respiratory Pattern Blood Pressure 223/117 H 165/87 H Blood Pressure [BP] Blood Pressure Mean 152 113 Blood Pressure Mean [BP] Blood Pressure Source Blood Pressure Source [BP] Blood Pressure Position Blood Pressure Position [BP] Blood Pressure Location Blood Pressure Location [BP] Pulse Ox 96 96 Oxygen Delivery Method Room Air Room Air Room Air Oxygen Flow Rate (L/min) 05/22/21 06:53 05/22/21 08:15 05/22/21 08:59 Temperature 98.8 F 97.8 F Temperature Source Oral Temporal Pulse Rate 163 H 63 51 L Respiratory Rate 30 H 16 15 Respiratory Effort Respiratory Pattern Blood Pressure 165/87 H 130/82 H 130/82 H Blood Pressure [BP] 128/78 H Blood Pressure Mean 113 98 98 Blood Pressure Mean [BP] 94 Blood Pressure Source Monitor Monitor Blood Pressure Source [BP] Monitor Blood Pressure Position Semi-Fowlers Semi-Fowlers Blood Pressure Position [BP] Semi-Fowlers Blood Pressure Location Left Arm Left Arm Blood Pressure Location [BP] Left Arm Pulse Ox 97 97 99 Oxygen Delivery Method Room Air Nasal Cannula Room Air Oxygen Flow Rate (L/min) 2 05/22/21 09:14 05/22/21 09:29 05/22/21 09:44 Temperature Temperature Source Pulse Rate 57 L 51 L 55 L Respiratory Rate 17 15 17 Respiratory Effort Respiratory Pattern Blood Pressure 140/83 H Blood Pressure [BP] Blood Pressure Mean 102 Blood Pressure Mean [BP] Blood Pressure Source Monitor Monitor Monitor Blood Pressure Source [BP] Blood Pressure Position Semi-Fowlers Semi-Fowlers Semi-Fowlers Blood Pressure Position [BP] Blood Pressure Location Left Arm Left Arm Left Arm Blood Pressure Location [BP] Pulse Ox 100 100 100 Oxygen Delivery Method Room Air Room Air Room Air Oxygen Flow Rate (L/min) 05/22/21 09:59 05/22/21 10:00 05/22/21 10:14 Temperature Temperature Source Pulse Rate 57 L 50 L Respiratory Rate 14 Respiratory Effort Respiratory Pattern Blood Pressure Blood Pressure [BP] Blood Pressure Mean Blood Pressure Mean [BP] Blood Pressure Source Monitor Blood Pressure Source [BP] Blood Pressure Position Semi-Fowlers Blood Pressure Position [BP] Blood Pressure Location Left Arm Blood Pressure Location [BP] Pulse Ox 100 98 Oxygen Delivery Method Room Air Room Air Oxygen Flow Rate (L/min) 05/22/21 11:00 05/22/21 12:00 05/22/21 13:00 Temperature Temperature Source Pulse Rate 50 L 50 L 60 Respiratory Rate 14 Respiratory Effort Respiratory Pattern Blood Pressure 122/69 H 136/50 H Blood Pressure [BP] Blood Pressure Mean 86 78 Blood Pressure Mean [BP] Blood Pressure Source Monitor Monitor Blood Pressure Source [BP] Blood Pressure Position Semi-Fowlers Semi-Fowlers Blood Pressure Position [BP] Blood Pressure Location Left Arm Right Arm Blood Pressure Location [BP] Pulse Ox 100 Oxygen Delivery Method Room Air Room Air Oxygen Flow Rate (L/min) Weight Weight: 148.9 kg Body Mass Index (BMI) 51.5 Physical Exam Const alert, oriented x3, no apparent distress and healthy appearing General Appearance: cooperative, well kempt and well developed Orientation / Consciousness: awake, oriented to person, oriented to place and oriented to time HEENT normocephalic, head/scalp atraumatic, hearing grossly normal bilaterally and moist oral mucous membranes Eyes PERRL, EOMs intact bilaterally and conjunctivae normal Neck nuchal rigidity, supple, no JVD, thyroid normal and no carotid bruits General: trachea midline Resp normal respiratory effort, no retractions, no use of accessory muscles and clear to auscultation bilaterally Auscultation: Negative for rales, rhonchi or wheezes Cardio regular rate, regular rhythm, S1 normal heart sound, S2 normal heart sound, no murmurs, no rub, no gallops and no clicks GI normal to inspection, nondistended, normoactive bowel sounds, soft to palpation, non-tender and non-distended Extremity no clubbing, cyanosis or edema Skin no rashes or lesions noted, no jaundice and no petechiae General Skin Exam: no breakdown Neuro oriented x3, CN's II-XII intact bilaterally, no focal motor deficits and no sensory deficits noted Sensorium / Orientation: awake and alert Speech: speech normal Psych thought process normal and affect normal Results Medical Records Data Medical Nutrition Assessment Dietitian: Nutrition Therapy Diagnosis Start: 05/22/21 10:05 Freq: Status: Active Protocol: Document 05/22/21 10:14 (Rec: 05/22/21 10:14 AG [id number]) Nutrition Malnutrition Evidence of Malnutrition Exists No Recommendation Dietitian Recommendations/Changes recommend cardiac, carbohydrate controlled diet when medically indicated Lab / Micro Data Result Diagrams: 05/22/21 06:22 05/22/21 06:22 Labs: Laboratory Results - last 24 hr 05/22/21 06:22: WBC 9.1, RBC 5.32, Hgb 15.2, Hct 45.8, MCV 86.1, MCH 28.6, MCHC 33.2, RDW Std Deviation 41.3, RDW Coeff of Jolanta 13.3, Plt Count 278, MPV 10.2, Immature Gran % (Auto) 0.200, Neut % (Auto) 72.4 H, Lymph % (Auto) 15.8 L, Laurel % (Auto) 8.2, Eos % (Auto) 3.0, Baso % (Auto) 0.4, Absolute Neuts (auto) 6.6, Absolute Lymphs (auto) 1.44, Nucleated RBC % 0 05/22/21 06:22: Sodium 140, Potassium 3.3 L, Chloride 106, Carbon Dioxide 28.0, Anion Gap 6, BUN 11, Creatinine 1.20, Estim Creat Clear Calc 68.85, Est GFR (MDRD) Af Amer 82, Est GFR (MDRD) Non-Af 68, BUN/Creatinine Ratio 9.2 L, Glucose 166 H, Calcium 9.0, Troponin I High Sens 13.2 05/22/21 06:35: PT 13.9, INR 1.1, APTT 157.5 H* 05/22/21 12:22: POC Glucose 115 H Rhythm Strip Rhythm Strip: A-fib Rate: 116 Radiology Impression Chest X-Ray 05/22/21 06:26 IMPRESSION: No demonstrated acute cardiopulmonary process. Electronically Signed: Taryn Snow MD at 7:16 EDT Tel , Service support , Assessment & Plan Assessment/Plan (1) Atrial fibrillation with rapid ventricular response: PLAN: 1. Hypertensive emergency-patient's blood pressure is now under adequate control at this time, he will be monitored closely #2 paroxysmal atrial fibrillation with RVR-patient is converted to normal sinus rhythm, patient will be maintained on Cardizem 60 mg 4 times daily for rate control in addition to his other home medications, when he is discharged from the hospital he will have to begin systemic anticoagulation due to this #3 coronary artery disease-patient was initially felt to have had a non-STEMI, this was not felt to be true according to cardiology. #4 morbid obesity #5 type 2 diabetes #6 hyperlipidemia #7 hypokalemia-patient's labs will be checked again tomorrow Charges/Coding Visit Charges Inpatient E&M: 42606 Init Hosp L3
[2021-05-22] MEDS: Metoprolol(XL)Succ 50 MG Tablet PO (21:50)
[2021-05-22] MEDS: Losartan Potassium 25 MG Tablet PO (21:50)
[2021-05-22] MEDS: Atorvastatin Calcium 80 MG Tablet PO (21:50)
[2021-05-23] VITALS (10 sets, daily range): BP systolic 112–123; BP diastolic 60–71; PULSE 45–62; RESP 11–21; TEMP 35.9–36.7; O2SAT 95–99
[2021-05-23 04:09] LABS: Absolute Lymphocyte Count 1.62 X10^3/uL (0.83-4.51); Absolute Neutrophil Count 9.4 X10^3/uL (2.0-7.7); Basophil# 0.04 X10^3/uL; Basophil% 0.3 % (0-1); Eosinophil# 0.27 X10^3/uL; Eosinophils% 2.2 % (0-5); Hematocrit 35.7 % (40-54); Hemoglobin 11.9 g/dL (13.0-16.5); Lymphocyte # 1.62 X10^3/ul (0.83-4.51); Lymphocyte % 13.1 % (19-41); Mean Corp Hgb Conc 33.3 g/dL (32-36); Mean Corpuscular Hgb 28.7 pg (27.0-32.0); Mean Corpuscular Volume 86.2 fL (80-94); Monocyte# 0.98 X10^3/uL; Monocyte% 7.9 % (0-10); NRBC Flagged by Analyzer 0 % (0-5); Neutrophil # 9.44 X10^3/uL (2.7-7.7); Neutrophil % 76.3 % (47-70); Platelet Count 273 K/mm3 (150-450); RBC Distribution Width CV 13.9 % (11.6-14.6); RBC Distribution Width SD 43.2 fl (35.1-43.9); Red Blood Count 4.14 M/mm3 (4.6-6.2); White Blood Count 12.4 K/mm3 (4.4-11.0)
[2021-05-23 04:28] LABS: ALB/GLOB Ratio 0.7 RATIO (0.9-2.4); AST(SGOT) 67 U/L (15-37); Alanine Aminotransfer ALT/SGPT 34 U/L (16-61); Alkaline Phosphatase 71 U/L (45-117); Anion Gap 6 (5-15); BUN 18 mg/dL (7-18); BUN/Creat Ratio 15.4 RATIO (10-20); Calcium,Total 8.4 mg/dL (8.5-10.1); Chloride 105 mmol/L (98-107); Creatinine, Serum 1.17 mg/dL (0.70-1.30); EST Glomerular Filtration Rate 70 mL/min (>60); Est Glom Filt Rate - Afr Amer 85 mL/min (>60); Estimated Creatinine Clearance 68.16 ml/min; Globulin 4.1 g/dL (2.2-4.2); Glucose 129 mg/dL (74-106); Potassium 3.6 mmol/L (3.5-5.1); Protein, Total 7.1 g/dL (6.4-8.2); Sodium Level 140 mmol/L (136-145)
[2021-05-23] MEDS: dilTIAZem 60 MG Tablet PO (06:29)
[2021-05-23] MEDS: Aspirin 81 MG TAB.CHEW PO (08:31)
--- NOTE | 2021-05-23 09:40 | CASEMGMT ---
RN CM Face to Face with patient for initial transition planning/care coordination assessment. RN CM introduced self and role at [facility]. Patient sitting in chair, alert and oriented. Patient willing to participate in assessment and is able to answer all questions appropriately. Care providers, pharmacy, and demographics verified. Patient wishes to discharge home, denies need for home health at this time. Patient states he has no further needs or concerns at this time. CM to follow for discharge planning needs that may arise. PCP: [facility] Specialists: none Preferred Pharmacy: [facility] Insurance: MMO Prescription Benefit: yes, eliquis savings card provided. Living Will/HPOA: none LNOK: girlfriend Living Arrangements: Patient lives with girlfriend in a 2 story home. Patient is independent and able to ambulate stairs. Transportation: self/girlfriend DME/HHC: patient states he has cane and walker at home. Patient denies needs at discharge. Disposition Plan: Patient to discharge home with family support and follow-up plans in place. Joyce LEZAMA, RN, CM
--- NOTE | 2021-05-23 10:00 | EKG12_ITS ---
Test Reason : AM EKG Blood Pressure : / mmHG Vent. Rate : 047 BPM Atrial Rate : 047 BPM P-R Int : 190 ms QRS Dur : 102 ms QT Int : 494 ms P-R-T Axes : -01 042 122 degrees QTc Int : 437 ms Marked sinus bradycardia Nonspecific ST-T Changes Abnormal ECG When compared with ECG of 22-MAY-2021 08:20, MANUAL COMPARISON REQUIRED, DATA IS UNCONFIRMED Confirmed by ALISTAIR TRUJILLO, YARELIS ([id number]), primer expeditor and drier JORDAN PATTERSON ([id number]) on 05/28/2021 10:41:00 AM Referred By: Emili More Confirmed By:UMU MORE MD
[2021-05-23] MEDS: Clopidogrel Bisulfate 75 MG Tablet PO (10:31)
[2021-05-23] MEDS: Metoprolol(XL)Succ 50 MG Tablet PO (10:31)
[2021-05-23] MEDS: Potassium Chloride Oral Tablet 10 MEQ PO (10:32)
[2021-05-23] MEDS: Losartan Potassium 25 MG Tablet PO (10:32)
[2021-05-23] MEDS: hydroCHLOROthiazide 25 MG Tablet PO (10:33)
--- NOTE | 2021-05-23 11:04 | PCM.DC ---
Discharge Instructions Diet Discharge Diet: Low fat / Low cholesterol Activity Discharge Activity: Return to Normal Activity Weight Bearing Status: Full weight bearing Follow Up Care Test Results: Test results from this visit will be discussed in further detail at your follow-up appointment, if applicable. Discharge Plan Admission Admit Date/Time: 05/22/21 11:23 Primary Reason for Your Visit: hypertensive emergency Attending Provider: Chris Pinto Discharge Orders/Prescriptions Prescriptions: New atorvastatin 80 mg Tablet 80 mg PO QHS Qty: 30 RF: 0 metoprolol succinate 50 mg Tablet Extended Release 24 Hr 50 mg PO BID Qty: 1 RF: 0 clopidogrel 75 mg Tablet 75 mg PO DAILY Qty: 30 RF: 0 losartan 25 mg Tablet 25 mg PO BID Qty: 60 RF: 0 hydrochlorothiazide 25 mg Tablet 25 mg PO DAILY Qty: 30 RF: 0 potassium chloride 10 mEq Tablet,Er Particles/Crystals 20 meq PO DAILY Qty: 60 RF: 0 diltiazem HCl [Cardizem CD] 240 mg capsule,extended release 24hr 240 mg PO DAILY Qty: 30 RF: 0 metformin 500 mg tablet 500 mg PO BID Qty: 60 RF: 0 Eliquis 5 mg tablet 5 mg PO BID Qty: 60 RF: 0 Continued metformin 500 mg tablet 500 mg PO BID Qty: 60 RF: 0 Discontinued amlodipine 10 MG tablet 10 mg PO DAILY RF: 0 aspirin 81 MG tablet,chewable 81 mg PO DAILY RF: 0 hydrochlorothiazide 25 MG tablet 25 mg PO DAILY RF: 0 potassium chloride 10 mEq tablet extended release 10 meq PO DAILY RF: 0 clopidogrel 75 mg tablet 75 mg PO DAILY RF: 0 losartan 25 mg tablet 25 mg PO BID RF: 0 rosuvastatin 40 mg tablet 40 mg PO DAILY RF: 0 metoprolol succinate 50 mg Tablet Extended Release 24 Hr 50 mg PO BID 30 Days Qty: 60 RF: 1 Referrals / Follow Up: rKis Barroso MD [STAFF PHYSICIAN] - See Referral Note ( within 3-4 weeks) [facility],Out of [NON-STAFF] - Within 1 Month Disposition Disposition (needs filled in before D/C Order can be placed): Home, Self Care
--- NOTE | 2021-05-23 12:12 | CASEMGMT ---
Pt requested a list of local physicians in the area, SW brought in list to pt. CHRIS Huertas
--- NOTE | 2021-05-24 14:51 | CASEMGMT ---
JESÚS MIRANDA Discharge Follow-up Phone Call: DESTIN: Shubham Strata: 3 Call Date: 05/24/21 Discharge Date: 05/23/21 Time of Call: 1450 Duration: 3 min Admitting Diagnosis: STEMI JESÚS MIRANDA completed follow-up phone call after recent hospitalization. Patient states he is sore but is doing ok. Patient had no questions or concerns regarding discharge instructions. Patient has follow-up appt scheduled with Dharmesh on 06/25. Patient states he has not filled his prescriptions and will be picking them up after work today. JESÚS MIRANDA encourage patient to pickle pumper soon as he is to be on Eliquis and is important not to miss doses. Patient voiced understanding.
--- NOTE | 2021-05-31 09:34 | PCM.DC.SUM ---
Providers Date of Admission: 05/22/21 Date of Discharge: 05/23/21 Reason For Visit: STEMI Diagnosis Discharge Diagnosis (1) Atrial fibrillation with rapid ventricular response: Status: Resolved Code(s): I48.91 - Unspecified atrial fibrillation Plan: 1. Hypertensive emergency #2 paroxysmal atrial fibrillation with RVR-patient is converted to normal sinus rhythm #3 coronary artery disease-patient was initially felt to have had a non-STEMI, this was not felt to be true #4 morbid obesity #5 type 2 diabetes #6 hyperlipidemia #7 hypokalemia Medications at Discharge Home Medications apixaban [Eliquis] 5 mg PO BID #60 tab 05/23/21 atorvastatin 80 mg PO QHS #30 tab 05/23/21 clopidogrel 75 mg PO DAILY #30 tab 05/23/21 diltiazem HCl [Cardizem CD] 240 mg PO DAILY #30 cap 05/23/21 hydrochlorothiazide 25 mg PO DAILY #30 tab 05/23/21 losartan 25 mg PO BID #60 tab 05/23/21 metformin 500 mg PO BID #60 tab 05/23/21 metformin 500 mg PO BID #60 tab 05/23/21 metoprolol succinate 50 mg PO BID #1 tab 05/23/21 potassium chloride 20 meq PO DAILY #60 tab 05/23/21 Hospital Course Operations None Procedures Cardiac catheterization Summary of Care Provided Minutes Spent on Discharge: 32 Hospital Course: presented to the emergency room adriana Ball 51-year-old at [facility] with complaints of palpitations and chest tightness, EKG was obtained in the emergency room which was interpreted as showing ST elevation changes in the inferior leads along with atrial fibrillation, patient was taken to the [facility] but there was not, initially a STEMI was called occlusive coronary disease noted. Patient had a 60% occlusion of the right coronary artery but there is no evidence of thrombus, patient spontaneously converted to sinus rhythm, his troponin was not elevated. It was felt that the patient did not have a STEMI or non-STEMI and that he had a hypertensive emergency Patient was transferred to the ICU with atrial fibrillation. and his hospital stay was uneventful. His medications were adjusted during his hospitaliza05/23/2021. Patient was seen and examined on 05/23/2021: On examination he appeared in good health and spirits. Vital signs as documented. Skin warm and dry and without overt rashes. Neck without JVD, neck was supple, trachea midline, thyroid was normal. Lungs clear bilaterally, normal air movement was noted. Heart exam notable for regular rhythm, normal sounds and absence of murmurs, rubs or gallops. Abdomen unremarkable and without evidence of organomegaly, masses, or abdominal aortic enlargement. Bowel sounds are present, abdomen is not distended. Extremities nonedematous, no cyanosis was noted, no clubbing was noted. Neuro: Cranial nerves II through XII are grossly intact, no focal motor deficits were noted, sensation to light touch and pinprick intact, motor exam 5/5 throughout. Psych: Patient is alert and oriented x3, he does not appear anxious or depressed, he does not appear agitated. Patient was discharged home in stable condition on 05/23/2021. Weight / BMI Weight Weight: 148.9 kg Body Mass Index (BMI) 51.5 ABG / Lab / Microbiology Data Result Diagrams: 05/23/21 04:00 05/23/21 04:00 D/C Instructions Discharge Diet: Low fat / Low cholesterol Weight Bearing Status: Full weight bearing Meaningful Use Info Meaningful Use Diagnoses (Choose all that apply): None applicable Discharge Plan Admission Admit Date/Time: 05/22/21 11:23 Primary Reason for Your Visit: hypertensive emergency Attending Provider: Chris Pinto Instructions Patient Instructions: Controlling High Blood Pressure, Low-Salt Choices, High Blood Pressure Risk Factors, What Is High Blood Pressure? Discharge Orders/Prescriptions Prescriptions: New atorvastatin 80 mg Tablet 80 mg PO QHS Qty: 30 RF: 0 metoprolol succinate 50 mg Tablet Extended Release 24 Hr 50 mg PO BID Qty: 1 RF: 0 clopidogrel 75 mg Tablet 75 mg PO DAILY Qty: 30 RF: 0 losartan 25 mg Tablet 25 mg PO BID Qty: 60 RF: 0 hydrochlorothiazide 25 mg Tablet 25 mg PO DAILY Qty: 30 RF: 0 potassium chloride 10 mEq Tablet,Er Particles/Crystals 20 meq PO DAILY Qty: 60 RF: 0 diltiazem HCl [Cardizem CD] 240 mg capsule,extended release 24hr 240 mg PO DAILY Qty: 30 RF: 0 metformin 500 mg tablet 500 mg PO BID Qty: 60 RF: 0 Eliquis 5 mg tablet 5 mg PO BID Qty: 60 RF: 0 Continued metformin 500 mg tablet 500 mg PO BID Qty: 60 RF: 0 Discontinued amlodipine 10 MG tablet 10 mg PO DAILY RF: 0 aspirin 81 MG tablet,chewable 81 mg PO DAILY RF: 0 hydrochlorothiazide 25 MG tablet 25 mg PO DAILY RF: 0 potassium chloride 10 mEq tablet extended release 10 meq PO DAILY RF: 0 clopidogrel 75 mg tablet 75 mg PO DAILY RF: 0 losartan 25 mg tablet 25 mg PO BID RF: 0 rosuvastatin 40 mg tablet 40 mg PO DAILY RF: 0 metoprolol succinate 50 mg Tablet Extended Release 24 Hr 50 mg PO BID 30 Days Qty: 60 RF: 1 Referrals / Follow Up: Kris Barroso MD [STAFF PHYSICIAN] - 06/25/21 9:00 am ( within 3-4 weeks) [facility] Doctor,Out of [NON-STAFF] - Within 1 Month Disposition Disposition (needs filled in before D/C Order can be placed): Home, Self Care Charges/Coding Visit Charges Inpatient E&M: 85378 Disch Hosp
== END 2021-05-23 12:36 | disposition home or self-care (01) | DRG 287 ==
LOC: ED 06:39 → ICU 09:29
PROVIDERS: Admitting Provider Internal Medicine; Emergency Provider Emergency Medicine; Referring Provider Specialist; Visit Provider Internal Medicine
DX: I16.1 Hypertensive emergency (principal); I48.92 Unspecified atrial flutter; Z68.43 Body mass index [BMI] 50.0-59.9, adult; I48.0 Paroxysmal atrial fibrillation; I25.10 Atherosclerotic heart disease of native coronary artery without angina pectoris; E66.01 Morbid (severe) obesity due to excess calories; E11.9 Type 2 diabetes mellitus without complications; E78.5 Hyperlipidemia, unspecified; E87.6 Hypokalemia; I25.2 Old myocardial infarction; E78.00 Pure hypercholesterolemia, unspecified; F17.200 Nicotine dependence, unspecified, uncomplicated; H53.2 Diplopia; I10 Essential (primary) hypertension; J45.909 Unspecified asthma, uncomplicated; M10.9 Gout, unspecified; Z79.02 Long term (current) use of antithrombotics/antiplatelets; Z79.82 Long term (current) use of aspirin; Z82.49 Family history of ischemic heart disease and other diseases of the circulatory system; Z95.1 Presence of aortocoronary bypass graft; Z95.5 Presence of coronary angioplasty implant and graft
CPT/HCPCS: 71045; 80048; 80053; 82962; 84484; 85025; 85610; 85730; 93005; 93455; 97802; 99283; J7030; Q9967; A4216; C1760; C1769; C1894; J2405

== ENCOUNTER 2021-12-03 09:32 | Outpatient (CLI) | payer OTHER, SELFPAY ==
[2021-12-03 12:01] LABS: AST(SGOT) 18 U/L (15-37); Alanine Aminotransfer ALT/SGPT 27 U/L (16-61); Albumin, Serum 3.3 g/dL (3.2-5.0); Alkaline Phosphatase 109 U/L (45-117); Bilirubin, Direct 0.07 mg/dL (0.00-0.30); Cholesterol 174 mg/dL (200); Globulin 5.2 g/dL (2.2-4.2); High Density Lipoprotein 33 mg/dL; Protein, Total 8.5 g/dL (6.4-8.2); Triglycerides 151 mg/dL; Very Low Density Lipoprotein 30 mg/dL (5-40)
== END 2021-12-03 23:59 | disposition home or self-care (01) ==
LOC: LAB 09:34
PROVIDERS: Nurse Practitioner Family; Referring Provider Nurse Practitioner Gerontology; Visit Provider Nurse Practitioner Gerontology
DX: E78.5 Hyperlipidemia, unspecified (principal); I25.10 Atherosclerotic heart disease of native coronary artery without angina pectoris; I10 Essential (primary) hypertension; Z95.5 Presence of coronary angioplasty implant and graft; Z95.1 Presence of aortocoronary bypass graft
CPT/HCPCS: 36415; 80061; 80076

== ENCOUNTER 2021-12-23 20:56 | Inpatient (IN) | payer OTHER, SELFPAY ==
[2021-12-23] VITALS (8 sets, daily range): BP systolic 118–196; BP diastolic 68–138; PULSE 65–94; RESP 14–18; TEMP 36.6–36.9; O2SAT 95–99; BMI 55.5; BMI 53.1
--- NOTE | 2021-12-23 21:27 | EKG12_ITS ---
Test Reason : DYSRHYTHMIA Blood Pressure : / mmHG Vent. Rate : 087 BPM Atrial Rate : 277 BPM P-R Int : 000 ms QRS Dur : 104 ms QT Int : 406 ms P-R-T Axes : 000 079 023 degrees QTc Int : 488 ms Atrial flutter with variable A-V block Nonspecific ST abnormality Prolonged QT Abnormal ECG Confirmed by SARTHAK TRUJILLO, ANDREE ([id number]), scientific editor JORDAN PATTERSON ([id number]) on 12/25/2021 11:11:08 AM Referred By: CHELY Confirmed By:ANDREE DE LEÓN MD
[2021-12-23 21:32] LABS: Absolute Lymphocyte Count 1.83 X10^3/uL (0.83-4.51); Absolute Neutrophil Count 6.3 X10^3/uL (2.0-7.7); Basophil# 0.04 X10^3/uL; Basophil% 0.4 % (0-1); Eosinophil# 0.22 X10^3/uL; Eosinophils% 2.4 % (0-5); Hemoglobin 15.2 g/dL (13.0-16.5); Lymphocyte # 1.83 X10^3/ul (0.83-4.51); Lymphocyte % 19.6 % (19-41); Mean Corp Hgb Conc 34.5 g/dL (32-36); Mean Corpuscular Volume 86.8 fL (80-94); Mean Platelet Vol. 10.2 fl (6.2-12.0); Monocyte# 0.97 X10^3/uL; Monocyte% 10.4 % (0-10); NRBC Flagged by Analyzer 0 % (0-5); Neutrophil # 6.26 X10^3/uL (2.7-7.7); Platelet Count 302 K/mm3 (150-450); RBC Distribution Width CV 14.1 % (11.6-14.6); RBC Distribution Width SD 44.1 fl (35.1-43.9); Red Blood Count 5.07 M/mm3 (4.6-6.2); White Blood Count 9.3 K/mm3 (4.4-11.0)
--- NOTE | 2021-12-23 21:35 | EDS_ITS ---
HPI History of Present Illness Chief Complaint: Palpitations Informant: patient Onset/Context/Timing Onset: Today and Hours Activity at onset: gradual Timing: Continuous Quality: Positive for Aching Location: Substernal Current Severity: Mild Maximum Severity: Mild Worsened By: Nothing Relieved By: Nothing Associated Symptoms: Positive for Palpitations; Negative for Nausea, Vomiting, Diaphoresis, Dyspnea, Cough, Fever, Lightheadedness and Acid Reflux Narrative Narrative: 51-year-old male with a significant past medical history of cardiac disease including CAD, MN and a triple bypass CABG about 15 years ago. He is got 3 cardiac stents. His last MN was around April of last year. Since that time he said intermittent episodes of atrial fibrillation. He is currently on Eliquis. About 2 hours ago he thinks he went back in A. fib and has had chest heaviness since that time. Denies nausea, vomiting, diarrhea or fever. No shortness of breath. He has had episodes like this before. He has had no recent hospitalization. Prior Similar Symptoms: Yes Recent Illness/Hospitalization: No CVD Risk Factors: Positive for Hypertension, Diabetes and Hypercholesterolemia PE Risk Factors: Negative for Recent Travel/Surgery, Recent Immobilization, Prior DVT or PE, Cancer and OCP + Smoking + >/=35 TAD Risk Factors: Negative for Marfan's Syndrome [facility] Medical History Asthma Atherosclerotic heart disease of [place] coronary artery without angina pectoris Atrial fibrillation with rapid ventricular response (05/22/21) COVID-19 (07/29/21) Essential (primary) hypertension Gout History of non-ST elevation myocardial infarction (NSTEMI) (05/07/21) Hyperlipidemia Morbid obesity New onset atrial flutter (05/08/21) Smoker Type 2 diabetes mellitus Home Medications metformin 500 mg PO BID #60 tab 05/23/21 [Rx Last Taken 05/07/21] apixaban 5 mg tablet 5 mg PO BID #180 tab 06/21/21 [Rx Last Taken Unknown] atorvastatin 80 mg tablet 80 mg PO QHS #90 tab 06/21/21 [Rx Last Taken Unknown] clopidogrel 75 mg tablet 75 mg PO DAILY #90 tab 06/21/21 [Rx Last Taken Unknown] diltiazem HCl 240 mg capsule,extended release 24 hr 240 mg PO DAILY #90 cap 08/26/21 [Rx Last Taken Unknown] hydrochlorothiazide 25 mg tablet 25 mg PO DAILY #90 tab 06/21/21 [Rx Last Taken Unknown] metoprolol succinate 50 mg tablet,extended release 24 hr 50 mg PO BID #180 tab 06/21/21 [Rx Last Taken Unknown] losartan 50 mg tablet 50 mg PO BID #180 tab 12/04/21 [Rx Last Taken Unknown] Allergy/AdvReac Type Severity Reaction Status Date / Time No Known Allergies Allergy Verified 12/04/21 06:53 Family History Father CAD (coronary artery disease) Heart disease Hypertension Mother Heart disease Hypertension Surgical History H/O coronary artery bypass surgery (03/30/09) History of coronary artery stent placement (02/28/21) History of left heart catheterization (05/22/21) Social History household members: significant other Smoking Status: Current some day smoker tobacco type: cigars per week: 2 alcohol intake: never substance use type: does not use ROS ROS ED ROS Narrative Palpitations. Chest pain. Review of Systems ROS Unobtainable: Denies due to encephalopathy Constitutional Constitutional ED: Denies fever(s) Eyes Eyes: Denies none ENT ENT ED: Denies ear pain Cardiovascular Cardiovascular: Reports as per HPI, chest pain, palpitations and racing heartbea t Respiratory/Chest Respiratory/Chest: Denies cough or dyspnea Gastrointestinal Gastrointestinal: Denies abdominal pain, constipation, diarrhea, nausea or vomiting Genitourinary Genitourinary ED: Denies dysuria Musculoskeletal Musculoskeletal: Denies myalgias Integumentary Denies rash Neurologic Neurologic: Denies headache(s) Psychiatric Psychiatric: Denies depression Endocrine Endocrinology: Denies polyuria Hematologic/Lymphatic Hematologic/Lymphatic: Denies easy bruising Allergic/Immunologic Allergic/Immunologic ED: Denies urticaria EXAM Physical Exam Narrative Exam Narrative: 51-year-old male no acute distress. Vital signs stable his initial blood pressure is elevated his repeat blood pressure is 141/78. Pulse ox is 96% on room air. He is afebrile. On the monitor he appears to be in atrial flutter rate between 90 and 120. H EENT exam unremarkable. Lungs clear to auscultation. Heart irregularly irregular. Abdomen soft nontender normal bowel sounds. Moving all 4 extremities. Neurologically awake and alert with no focal motor deficits. Const Vital Signs: 12/23/21 20:56 12/23/21 21:24 12/23/21 21:25 Temperature 98.4 F Temperature Source Temporal Pulse Rate 93 82 Respiratory Rate 18 18 Respiratory Effort Normal Non-Labored Blood Pressure 196/138 H 141/78 H Blood Pressure Mean 157 99 Pulse Ox 99 96 Oxygen Delivery Method Room Air Room Air 12/23/21 21:40 Temperature Temperature Source Pulse Rate Respiratory Rate Respiratory Effort Blood Pressure Blood Pressure Mean Pulse Ox Oxygen Delivery Method Room Air Positive well nourished, well developed and obese; Negative for cachectic, contractures or unkempt General Appearance ED: well developed and NAD; Negative for unkempt, cachectic, contractures or pallor Nutritional Appearance: obese; Negative for cachectic HEENT Reports moist mucous membranes normocephalic and atraumatic; Negative for trauma or tenderness Eyes PERRL and EOMs intact bilaterally Neck no lymphadenopathy, supple and no JVD General: Negative for tenderness Chest Wall inspection of chest normal and palpation of chest normal Chest: Negative for tenderness Resp normal respiratory effort and clear to auscultation bilaterally Effort and Inspection: respiratory distress Auscultation: Negative for rales, rhonchi or wheezes Cardio no murmurs; Negative for regular rate or regular rhythm Rate: other Other Details: Atrial flutter rate between 90 and 120. GI normal to inspection, nondistended, normoactive bowel sounds, soft to palpation, non-tender, non-distended and no masses Auscultation: Negative for hyperactive bowel sounds Back/Spine no CVA tenderness Extremity normal to inspection General Extremety ED: Negative for edema or tenderness General Extremity: Negative for edema Neuro oriented x3 Sensorium / Orientation: awake, alert, oriented to person, oriented to place and oriented to time Motor Exam: strength 5/5 throughout Psych mental status grossly normal Appearance: Negative for unkempt Skin no rashes or lesions noted and no wounds General Skin Exam: Negative for jaundice or pallor Heart Score History: Moderately Suspicious Age: >45 - <65 years Risk Factors: >/= 3 Risk Factors or History of CAD Troponin: </= Normal Limit Score: 4 MDM MDM MDM Narrative Medical decision making narrative: 51-year-old male significant cardiac history currently in atrial flutter rate between 90-120. With chest discomfort. He is on blood thinners both Eliquis and Plavix. He will be given IV Cardizem and undergo cardiac work-up. Multiple repeat exams patient was initially given Cardizem bolus. His heart rates been between 90 and 140 while in the emergency department. He is consistently between 90 and 120. When his heart rate goes up he developed chest pain. I will speak with the hospitalist about admission. Lab Data Attestation: I reviewed the patient's lab results. Lab results narrative: CBC shows a white count 9. H&H 15 and 44. Platelets 302. Troponin 37. Chemistries pending. Labs: Laboratory Results - last 24 hr 12/23/21 12/23/21 21:27 21:27 WBC 9.3 RBC 5.07 Hgb 15.2 Hct 44.0 MCV 86.8 MCH 30.0 MCHC 34.5 RDW Std Deviation 44.1 H RDW Coeff of Jolanta 14.1 Plt Count 302 MPV 10.2 Immature Gran % (Auto) 0.200 Neut % (Auto) 67.0 Lymph % (Auto) 19.6 [place] % (Auto) 10.4 H Eos % (Auto) 2.4 Baso % (Auto) 0.4 Absolute Neuts (auto) 6.3 Absolute Lymphs (auto) 1.83 Nucleated RBC % 0 Troponin I High Sens 37 Radiography Chest X-Ray - ED: 1 View, Read by ED Physician, Lungs, Mediastinum, Bony Structures, No Acute Disease and Cardiomegaly Rhythm Strip Rhythm Strip: Atrial flutter rate of 87 Rate: 87 EKG Initial EKG: Attestation: I personally reviewed and interpreted this EKG as follows: Interpretation: No Acute Injury Pattern and Atrial Flutter Comments: Atrial flutter rate 87 no acute signs of ST elevation. Discharge Plan Dx/Rx/DC Orders Clinical Impression: Atrial flutter with rapid ventricular response, H/O coronary artery bypass surgery, Chest pain Disposition Disposition: Acute Care [facility]
--- NOTE | 2021-12-23 21:35 | RAD_ITS ---
INDICATION: chest pain EXAMINATION/TECHNIQUE: X-RAY - XR Chest 1 View COMPARISON: 05/22/2021. FINDINGS: The lungs are clear. Sternal cerclage wires and vascular clips are present from a prior sternotomy and coronary artery bypass graft procedure (CABG). The heart is enlarged. No pleural effusion or pneumothorax. No acute osseous abnormalities. RAD/Chest 1 View (Portable) IMPRESSION: No acute radiographic abnormalities. Electronically Signed: Sanket Woodruff MD at 23:24 EST ,
[2021-12-23] MEDS: dilTIAZem 25 MG/5 ML Vial IV BOLUS (21:47)
[2021-12-23 21:52] LABS: Troponin-I HS 37 pg/mL (3.0-78.0)
--- NOTE | 2021-12-23 22:26 | HP.PCM.HOS_ITS ---
HPI - General General Date of Admission: 12/23/21 HPI Narrative WILBUR QUINTEROS, is a 51 M with a significant history of atrial fibrillation; and CAD status post CABG about 15 years ago, and stent placement in 2020 and on guideline directed medical therapy who presents because he felt he was in A. fib. He described the symptoms as heart racing and pain in his chest. He denies any other symptoms. At the emergency department he was found to be in a flutter and he was started on a Cardizem drip. [facility] Medical History Asthma Atherosclerotic heart disease of [place] coronary artery without angina pectoris Atrial fibrillation with rapid ventricular response (05/22/21) COVID-19 (07/29/21) Essential (primary) hypertension Gout History of non-ST elevation myocardial infarction (NSTEMI) (05/07/21) Hyperlipidemia Morbid obesity New onset atrial flutter (05/08/21) Smoker Type 2 diabetes mellitus Home Medications metformin 500 mg PO BID #60 tab 05/23/21 [Rx Last Taken 05/07/21] apixaban 5 mg tablet 5 mg PO BID #180 tab 06/21/21 [Rx Last Taken Unknown] atorvastatin 80 mg tablet 80 mg PO QHS #90 tab 06/21/21 [Rx Last Taken Unknown] clopidogrel 75 mg tablet 75 mg PO DAILY #90 tab 06/21/21 [Rx Last Taken Unknown] diltiazem HCl 240 mg capsule,extended release 24 hr 240 mg PO DAILY #90 cap 06/21/21 [Rx Last Taken Unknown] hydrochlorothiazide 25 mg tablet 25 mg PO DAILY #90 tab 06/21/21 [Rx Last Taken Unknown] metoprolol succinate 50 mg tablet,extended release 24 hr 50 mg PO BID #180 tab 06/21/21 [Rx Last Taken Unknown] losartan 50 mg tablet 50 mg PO BID #180 tab 12/04/21 [Rx Last Taken Unknown] Allergy/AdvReac Type Severity Reaction Status Date / Time No Known Allergies Allergy Verified 12/04/21 06:53 Family History Father CAD (coronary artery disease) Heart disease Hypertension Mother Heart disease Hypertension Surgical History H/O coronary artery bypass surgery (03/30/09) History of coronary artery stent placement (02/28/21) History of left heart catheterization (05/22/21) Social History household members: significant other Smoking Status: Current some day smoker tobacco type: cigars per week: 2 alcohol intake: never substance use type: does not use ROS ROS Narrative Pertinent positives and pertinent negatives as noted in HPI. All other systems were reviewed and are negative. Vital Signs Vital Signs Vital Signs: 12/23/21 20:56 12/23/21 21:24 12/23/21 21:25 Temperature 98.4 F Temperature Source Temporal Pulse Rate 93 82 Respiratory Rate 18 18 Respiratory Effort Normal Non-Labored Blood Pressure 196/138 H 141/78 H Blood Pressure Mean 157 99 Pulse Ox 99 96 Oxygen Delivery Method Room Air Room Air 12/23/21 21:40 Temperature Temperature Source Pulse Rate Respiratory Rate Respiratory Effort Blood Pressure Blood Pressure Mean Pulse Ox Oxygen Delivery Method Room Air Weight Weight: 156 kg Body Mass Index (BMI) 55.5 Physical Exam Narrative Physical exam: General: Well-nourished, well-developed. Head: Normocephalic, atraumatic, no tenderness Eyes: PERRLA, EOMI ENT, no trauma, moist mucous membranes, no rhinorrhea Neck: Nontender, full range of motion, no spinal tenderness, deformities, step- off CVS: Tachycardia. Regular rate. S1-S2 present. No murmur, gallop or rub. Respiratory : clear to auscultation bilaterally, chest wall nontender, no wheezing Abdomen: Soft, nontender, nondistended, normal bowel sounds, no masses : Deferred Back: Nontender, no CVA tenderness, no midline spinal tenderness, deformities, step-offs Extremities: Nontender full range of motion, no trauma Skin: Normal color, no trauma, abrasions Neuro: Alert, oriented, cranial nerves II through XII grossly intact. Psychiatry: Normal mood. Normal affect. Not depressed. Not anxious. Results Lab / Micro Data Result Diagrams: 12/23/21 21:27 12/23/21 21:27 Labs: Laboratory Results - last 24 hr 12/23/21 21:27: WBC 9.3, RBC 5.07, Hgb 15.2, Hct 44.0, MCV 86.8, MCH 30.0, MCHC 34.5, RDW Std Deviation 44.1 H, RDW Coeff of Jolanta 14.1, Plt Count 302, MPV 10.2, Immature Gran % (Auto) 0.200, Neut % (Auto) 67.0, Lymph % (Auto) 19.6, [place] % (Auto) 10.4 H, Eos % (Auto) 2.4, Baso % (Auto) 0.4, Absolute Neuts (auto) 6.3, Absolute Lymphs (auto) 1.83, Nucleated RBC % 0 12/23/21 21:27: Troponin I High Sens 37 Rhythm Strip Rhythm Strip: Atrial flutter rate of 87 Rate: 87 Assessment & Plan Assessment/Plan (1) Atrial flutter with rapid ventricular response: PLAN: A flutter with rapid ventricular response Telemetric strip at the time of evaluation showed A flutter with rapid ventricular response. Placed on PCU on telemetry Chest x-ray was visualized and independently interpreted. I agree with radiology interpretation of no acute cardiopulmonary process. Initial troponin was 37, trend. Potassium is 3.3, replace. Trend BMP. Magnesium is 1.8. Magnesium supplementation ordered. TSH on 05/07/2021 was 1.23. TSH ordered. Last echocardiogram was on 02/27/2021. Ejection fraction was 55%. There was no diastolic dysfunction. Right ventricular systolic pressure/pulmonary artery pressure could not be estimated. Obtain echo Patient is on Eliquis. Eliquis will be continued. Started on Cardizem drip at emergency department and continued. Hold home p.o. Cardizem. Continue home p.o. metoprolol. Cardiology consult. Hypertension Blood pressure is not within goal Hydrochlorothiazide, losartan, metoprolol continued. On Cardizem drip as above n.p.o. Cardizem held for now. Trend blood pressure and adjust blood pressure medications. Morbid Obesity - BMI: 53.2 kilogram per meter square. Complicates care. Lifestyle modification recommended. DVT prophylaxis: Not indicated as patient is on Eliquis and Eliquis has been continued. Charges/Coding Visit Charges Inpatient E&M: 16619 Init Hosp L3
[2021-12-23 22:49] LABS: Anion Gap 6 (5-15); BUN 19 mg/dL (7-18); BUN/Creat Ratio 15.7 RATIO (10-20); Calcium,Total 9.7 mg/dL (8.5-10.1); Chloride 105 mmol/L (98-107); Creatinine, Serum 1.21 mg/dL (0.70-1.30); EST Glomerular Filtration Rate 67 mL/min (>60); Est Glom Filt Rate - Afr Amer 81 mL/min (>60); Estimated Creatinine Clearance 65.91 ml/min; Glucose 144 mg/dL (74-106); Potassium 3.3 mmol/L (3.5-5.1); Sodium Level 140 mmol/L (136-145)
[2021-12-23 22:51] LABS: Magnesium 1.8 mg/dL (1.6-2.6)
--- NOTE | 2021-12-23 23:26 | ECHOCS_ITS ---
Reason For Study: Afib, Aflutter Procedure This was a 2D Doppler, Color Flow transthoracic echocardiogram. Contrast injection was performed. Exam performed portable in patient room. Left Ventricle Normal LV size. Left ventricular systolic function is normal. The estimated ejection fraction is 53 %. Stage 2 diastolic dysfunction. No regional wall motion abnormalities noted. Right Ventricle Normal RV size. Normal systolic function. Atria Normal left atrium. Normal right atrium. Mitral Valve Normal mitral valve. Tricuspid Valve Normal tricuspid valve. Mild tricuspid valve insufficiency. Pulmonary artery systolic pressure is 20 mmHg. Aortic Valve Trisinus/trileaflet aortic valve. Pulmonic Valve The pulmonic valve is not well visualized. Great Vessels Normal aortic root. Pericardium/Pleural No pericardial effusion. Medication Diluted definity 4ml given slow IV push to enhance endocardial definition. MMode/2D Measurements & Calculations LVIDd: 5.2 cm IVSd: 1.6 cm Ao root diam: 3.6 cm LVIDs: 3.6 cm LVPWd: 1.7 cm FS: 31.7 % LAV(MOD-bp): 64.7 ml LVAd ap4: 35.0 cm2 SV(MOD-sp4): 72.2 ml LAV(MOD-bp) Indexed: 25.7 ml/m2 LVLd ap4: 7.7 cm LAV(MOD-sp2): 66.7 ml EDV(MOD-sp4): 133.1 ml LAV(MOD-sp4): 61.1 ml EDV(sp4-el): 134.6 ml LVAs ap4: 21.9 cm2 LVLs ap4: 6.8 cm ESV(MOD-sp4): 60.9 ml ESV(sp4-el): 60.0 ml EF(MOD-sp4): 54.2 % EF(sp4-el): 55.5 % SV(sp4-el): 74.7 ml LA A4 area: 21.6 cm2 LA dimension(2D): 4.5 cm RA A4 area: 16.7 cm2 Doppler Measurements & Calculations MV E max james: 116.1 cm/sec Lat Peak E' James: 10.3 cm/sec Med Peak E' James: 9.7 cm/sec MV A max james: 62.3 cm/sec E/E' lat: 11.2 E/E' med: 12.0 MV E/A: 1.9 Ao V2 max: 106.1 cm/sec LV V1 max: 82.8 cm/sec PA V2 max: 110.0 cm/sec Ao max P.5 mmHg LV V1 max P.7 mmHg Ao V2 mean: 68.0 cm/sec Ao mean P.1 mmHg Ao V2 VTI: 17.5 cm TR max jaems: 203.2 cm/sec TR max P.5 mmHg ECHO/Echo Complete W/ Contrast Interpretation Summary Normal LV size. Left ventricular systolic function is normal. The estimated ejection fraction is 53 %. Stage 2 diastolic dysfunction. Contrast injection was performed. Ordering Physician: Trace Brock Performed By: Kimberly Mcgarry, JESSE, RVT
[2021-12-24] VITALS (28 sets, daily range): BP systolic 107–177; BP diastolic 65–115; PULSE 59–91; RESP 13–20; TEMP 36.4–36.8; O2SAT 95–100
[2021-12-24] MEDS: Potassium Chloride Oral Tablet 20 MEQ 60 MEQ PO (04:04)
[2021-12-24] MEDS: 0.9% Saline Lock 10 ML Syringe IV ×2 (04:09→14:22)
[2021-12-24 04:22] LABS: Absolute Lymphocyte Count 1.82 X10^3/uL (0.83-4.51); Absolute Neutrophil Count 6.3 X10^3/uL (2.0-7.7); Basophil# 0.05 X10^3/uL; Basophil% 0.5 % (0-1); Eosinophil# 0.25 X10^3/uL; Eosinophils% 2.7 % (0-5); Hematocrit 42.3 % (40-54); Hemoglobin 14.4 g/dL (13.0-16.5); Lymphocyte # 1.82 X10^3/ul (0.83-4.51); Lymphocyte % 19.8 % (19-41); Mean Corpuscular Hgb 29.6 pg (27.0-32.0); Mean Platelet Vol. 10.3 fl (6.2-12.0); Monocyte# 0.82 X10^3/uL; Monocyte% 8.9 % (0-10); NRBC Flagged by Analyzer 0 % (0-5); Neutrophil # 6.25 X10^3/uL (2.7-7.7); Neutrophil % 67.9 % (47-70); Platelet Count 290 K/mm3 (150-450); RBC Distribution Width CV 14.2 % (11.6-14.6); RBC Distribution Width SD 44.8 fl (35.1-43.9); Red Blood Count 4.86 M/mm3 (4.6-6.2); White Blood Count 9.2 K/mm3 (4.4-11.0)
[2021-12-24 05:35] LABS: Anion Gap 8 (5-15); BUN 19 mg/dL (7-18); BUN/Creat Ratio 19.7 RATIO (10-20); Calcium,Total 9.3 mg/dL (8.5-10.1); Chloride 103 mmol/L (98-107); Creatinine, Serum 0.96 mg/dL (0.70-1.30); EST Glomerular Filtration Rate 87 mL/min (>60); Est Glom Filt Rate - Afr Amer 106 mL/min (>60); Estimated Creatinine Clearance 86.07 ml/min; Glucose 145 mg/dL (74-106); Potassium 3.3 mmol/L (3.5-5.1); Sodium Level 139 mmol/L (136-145); Thyroid Stim Hormone (TSH) 2.29 uIU/mL (0.358-3.74)
[2021-12-24 05:42] LABS: Troponin-I HS 36 pg/mL (3.0-78.0)
[2021-12-24 06:46] LABS: Bedside Glucose 148 mg/dL (70-110)
--- NOTE | 2021-12-24 09:07 | PCM.CONS.C ---
Assessment & Plan Assessment/Plan (1) Atrial flutter with rapid ventricular response: PLAN: Patient presents with atrial flutter with a rapid ventricular response rate. He has been on anticoagulation. My recommendation at this time will be for us to consider a DC cardioversion and depending on the response further recommendations will be made. We may need to consider him for oral sotalol (2) H/O coronary artery bypass surgery: PLAN: He does have a history of coronary bypass surgery as noted above. 1 out of 3 of his bypass grafts are patent that he does not appear to have any angina and will continue with the current medical therapy. (3) History of coronary artery stent placement: PLAN: He is status post previous angioplasty and stenting as noted above. He does not have any angina and the plan to be to continue him on the current medical therapy. I will review his last cardiac catheterization. (4) Essential (primary) hypertension: PLAN: His blood pressure appears to have been elevated when he presented that has improved. We will continue him on the Cozaar as well as the metoprolol. If his blood pressure elevates further will consider amlodipine 5 mg a day (5) Hyperlipidemia: PLAN: He does have a history of hyperlipidemia and will remain on high intensity statin. Thank you for allowing me to participate in the care of your patient. Please don't hesitate to call if any issues arise. HPI Consult Data Date of Consult: 12/24/21 HPI Narrative HPI Narrative: WILBUR QUINTEROS, is a 51 M who presents with a rapid heart rate. He says that this has been going on over the last few weeks. He has a history of coronary artery disease with coronary artery bypass x3 with a ROSE to the LAD, free YUMIKO to lateral circumflex, and SVG to ramus branch in 2008, previous stenting, and stenting to distal RCA in February 2021. He also has a history of paroxysmal atrial fibrillation. He also has a history of hypertension, hyperlipidemia, diabetes mellitus type 2, and obesity. He was admitted in April 2021 with atrial fibrillation with rapid ventricular response rate. He also had a non-ST elevation myocardial infarction at that time and underwent a left heart catheterization with demonstrated a distal right coronary lesion for which medication was recommended. His echocardiogram at that time demonstrated preserved ejection fraction of 55%. A Holter monitor performed demonstrated no evidence of atrial fibrillation with an average heart rate of 66 bpm and minimum of 45 and a maximum 120 bpm in sinus rhythm. He presented to the emergency room and was noted to be in atrial flutter with a rapid ventricular response rate. He was treated with intravenous diltiazem and his rate is much better now. However it still is in atrial flutter. [facility] Medical History Asthma Atherosclerotic heart disease of [place] coronary artery without angina pectoris Atrial fibrillation with rapid ventricular response (05/22/21) COVID-19 (07/29/21) Essential (primary) hypertension Gout History of non-ST elevation myocardial infarction (NSTEMI) (05/07/21) Hyperlipidemia Morbid obesity New onset atrial flutter (05/08/21) Smoker Type 2 diabetes mellitus Home Medications metformin 500 mg PO BID #60 tab 05/23/21 [Rx Last Taken 05/07/21] apixaban 5 mg tablet 5 mg PO BID #180 tab 06/21/21 [Rx Last Taken Unknown] atorvastatin 80 mg tablet 80 mg PO QHS #90 tab 06/21/21 [Rx Last Taken Unknown] clopidogrel 75 mg tablet 75 mg PO DAILY #90 tab 06/21/21 [Rx Last Taken Unknown] diltiazem HCl 240 mg capsule,extended release 24 hr 240 mg PO DAILY #90 cap 06/21/21 [Rx Last Taken Unknown] hydrochlorothiazide 25 mg tablet 25 mg PO DAILY #90 tab 06/21/21 [Rx Last Taken Unknown] metoprolol succinate 50 mg tablet,extended release 24 hr 50 mg PO BID #180 tab 06/21/21 [Rx Last Taken Unknown] losartan 50 mg tablet 50 mg PO BID #180 tab 12/04/21 [Rx Last Taken Unknown] potassium chloride 20 meq PO/SL DAILY 12/24/21 [History Last Taken Unknown] Allergy/AdvReac Type Severity Reaction Status Date / Time No Known Allergies Allergy Verified 12/04/21 06:53 Family History Father CAD (coronary artery disease) Heart disease Hypertension Mother Heart disease Hypertension Surgical History H/O coronary artery bypass surgery (03/30/09) History of coronary artery stent placement (02/28/21) History of left heart catheterization (05/22/21) Social History household members: significant other Smoking Status: Current some day smoker tobacco type: cigars per week: 2 alcohol intake: never substance use type: does not use ROS Constitutional Constitutional: Denies fever(s) or weight loss Eyes Eyes: Reports systems reviewed and no addt'l complaints, except as documented ENT HEENT: Reports systems reviewed and no addt'l complaints, except as documented Cardiovascular Cardiovascular: Reports palpitations; Denies chest pain at rest, chest pain with activity, dyspnea at rest, dyspnea on exertion, edema or paroxysmal nocturnal dyspnea Respiratory/Chest Respiratory/Chest: Denies dyspnea on exertion, productive cough, shortness of breath at rest or shortness of breath with exertion Gastrointestinal Gastrointestinal: Denies change in bowel habits, nausea, vomiting or weight changes Genitourinary Genitourinary: Denies difficulty urinating Musculoskeletal Musculoskeletal: Denies joint stiffness or muscle weakness Integumentary Integumentary: Denies lesions Neurologic Neurologic: Denies dizziness or syncope Psychiatric Psychiatric: Denies anxiety Endocrine Endocrinology: Denies excessive sweating or fatigue Hematologic/Lymphatic Hematologic/Lymphatic: Denies anemia Allergic/Immunologic Allergic/Immunologic: Denies seasonal rhinorrhea Physical Exam Const alert, oriented x3 and no apparent distress General Appearance: cooperative HEENT hearing grossly normal bilaterally Head and Scalp: atraumatic Eyes EOMs intact bilaterally Neck General: normal visual inspection Chest inspection of chest normal and palpation of chest normal Resp normal respiratory effort Auscultation: clear to auscultation bilaterally Cardio regular rate, regular rhythm, S1 normal heart sound and S2 normal heart sound Jugular Venous Distention: JVD GI normal to inspection, nondistended, normoactive bowel sounds Extremity normal capillary refill and no pedal edema Peripheral Pulses: Yes pulses 2+ throughout and femoral pulses present Skin no rashes or lesions noted Neuro oriented x3 and CN's II-XII intact bilaterally Psych Appearance: grossly normal and appropriate Risk Stratification Risk Stratification Applicable: No Objective Data Vital Signs: Vital Signs Temp Pulse Resp BP Pulse Ox 98.3 F 67 15 142/92 H 97 12/24/21 05:00 12/24/21 08:00 12/24/21 08:00 12/24/21 08:00 12/24/21 08:00 Oxygen Delivery Method Room Air Weight: 339 lb 8.19 oz Body Mass Index (BMI) 53.1 Intake & Output: Intake and Output for Last 24 Hours 12/22/21 12/23/21 12/24/21 23:59 23:59 23:59 Intake Total 6.34 / 7.92 145.58 / 145.58 Balance 6.34 / 7.92 145.58 / 145.58 Lab / Micro Data Result Diagrams: 12/24/21 Unknown 12/24/21 Unknown Labs: Laboratory Results - last 24 hr 12/23/21 21:27: WBC 9.3, RBC 5.07, Hgb 15.2, Hct 44.0, MCV 86.8, MCH 30.0, MCHC 34.5, RDW Std Deviation 44.1 H, RDW Coeff of Jolanta 14.1, Plt Count 302, MPV 10.2, Immature Gran % (Auto) 0.200, Neut % (Auto) 67.0, Lymph % (Auto) 19.6, [place] % (Auto) 10.4 H, Eos % (Auto) 2.4, Baso % (Auto) 0.4, Absolute Neuts (auto) 6.3, Absolute Lymphs (auto) 1.83, Nucleated RBC % 0 12/23/21 21:27: Sodium 140, Potassium 3.3 L, Chloride 105, Carbon Dioxide 29.0, Anion Gap 6, BUN 19 H, Creatinine 1.21, Estim Creat Clear Calc 65.91, Est GFR (MDRD) Af Amer 81, Est GFR (MDRD) Non-Af 67, BUN/Creatinine Ratio 15.7, Glucose 144 H, Calcium 9.7, Troponin I High Sens 37 12/23/21 21:27: Magnesium 1.8 12/24/21 06:40: POC Glucose 148 H 12/24/21 : WBC 9.2, RBC 4.86, Hgb 14.4, Hct 42.3, MCV 87.0, MCH 29.6, MCHC 34.0, RDW Std Deviation 44.8 H, RDW Coeff of Jolanta 14.2, Plt Count 290, MPV 10.3, Immature Gran % (Auto) 0.200, Neut % (Auto) 67.9, Lymph % (Auto) 19.8, [place] % (Auto) 8.9, Eos % (Auto) 2.7, Baso % (Auto) 0.5, Absolute Neuts (auto) 6.3, Absolute Lymphs (auto) 1.82, Nucleated RBC % 0 12/24/21 : Sodium 139, Potassium 3.3 L, Chloride 103, Carbon Dioxide 28.0, Anion Gap 8, BUN 19 H, Creatinine 0.96, Estim Creat Clear Calc 86.07, Est GFR (MDRD) Af Amer 106, Est GFR (MDRD) Non-Af 87, BUN/Creatinine Ratio 19.7, Glucose 145 H, Calcium 9.3, TSH 2.29 12/24/21 : Troponin I High Sens 36 Rhythm Strip Rhythm Strip: Atrial flutter rate of 87 Rate: 87 Cardiology Labs/Tests 12/23/21 21:27: WBC 9.3, RBC 5.07, Hgb 15.2, Hct 44.0, MCV 86.8, MCH 30.0, MCHC 34.5, Plt Count 302, MPV 10.2, Immature Gran % (Auto) 0.200, Neut % (Auto) 67.0, Lymph % (Auto) 19.6, [place] % (Auto) 10.4 H, Eos % (Auto) 2.4, Baso % (Auto) 0.4, Absolute Neuts (auto) 6.3, Nucleated RBC % 0 12/23/21 21:27: Sodium 140, Potassium 3.3 L, Chloride 105, Carbon Dioxide 29.0, Anion Gap 6, BUN 19 H, Creatinine 1.21, Est GFR (MDRD) Af Amer 81, Est GFR (MDRD) Non-Af 67, BUN/Creatinine Ratio 15.7, Glucose 144 H, Calcium 9.7 12/23/21 21:27: Magnesium 1.8 12/24/21 : WBC 9.2, RBC 4.86, Hgb 14.4, Hct 42.3, MCV 87.0, MCH 29.6, MCHC 34.0, Plt Count 290, MPV 10.3, Immature Gran % (Auto) 0.200, Neut % (Auto) 67.9, Lymph % (Auto) 19.8, [place] % (Auto) 8.9, Eos % (Auto) 2.7, Baso % (Auto) 0.5, Absolute Neuts (auto) 6.3, Nucleated RBC % 0 12/24/21 : Sodium 139, Potassium 3.3 L, Chloride 103, Carbon Dioxide 28.0, Anion Gap 8, BUN 19 H, Creatinine 0.96, Est GFR (MDRD) Af Amer 106, Est GFR (MDRD) Non-Af 87, BUN/Creatinine Ratio 19.7, Glucose 145 H, Calcium 9.3 Rhythm: EKG: ECHO: Stress Test: Cardiac Cath: PCI: CT Surgery: Holter monitor: EPS: PPM: CXR: Chest CT Scan: Radiography Diagnostic Testing: Radiology Impression Chest X-Ray 12/23/21 21:35 IMPRESSION: No acute radiographic abnormalities. Electronically Signed: Sanket Woodruff MD at 23:24 EST ,
--- NOTE | 2021-12-24 09:15 | EKG12_ITS ---
Test Reason : DCCV Blood Pressure : / mmHG Vent. Rate : 058 BPM Atrial Rate : 058 BPM P-R Int : 222 ms QRS Dur : 096 ms QT Int : 436 ms P-R-T Axes : 009 055 012 degrees QTc Int : 428 ms Sinus bradycardia with 1st degree A-V block Nonspecific T wave abnormality Abnormal ECG When compared with ECG of 23-DEC-2021 21:43, MANUAL COMPARISON REQUIRED, DATA IS UNCONFIRMED Confirmed by SARTHAK TRUJILLO, ANDREE ([id number]), writer editor JORDAN PATTERSON ([id number]) on 12/25/2021 11:18:07 AM Referred By: SARTHAK Confirmed By:ANDREE DE LEÓN MD
[2021-12-24] MEDS: Clopidogrel Bisulfate 75 MG Tablet PO (10:14)
[2021-12-24] MEDS: Metoprolol(XL)Succ 50 MG Tablet PO (10:14)
[2021-12-24] MEDS: APIXABAN 5 MG TABLET PO (10:15)
[2021-12-24 11:21] LABS: Bedside Glucose 133 mg/dL (70-110)
--- NOTE | 2021-12-24 11:30 | CASEMGMT ---
JESÚS MIRANDA assessment: Face to Face with patient for initial transition planning/care coordination assessment. JESÚS MIRANDA introduced self and role at [facility], pt voices understanding and consents to assessment. Pt is sitting up in chair in no distress on room air. Pt is A/Ox4 and answers all questions appropriately. Pt's sig other is at bedside during assessment. Care providers, pharmacy, and demographics verified. Presentation: Pt thinks that he's in Afib x 1hr. pt w/ SOB, palpitations Admitting dx: Afib RVR PCP: Pt states has no PCP but list provided of in-network providers Specialists: Dharmesh, cardio Preferred Pharmacy: [facility] Insurance: MMO Prescription Benefit: MMO Living Will/HPOA: Pt does not have LW/HPOA but would like to complete at this time. Chandrakant DING aware, voices understanding. LNOK: Jacquie Keys, sig other; Lex Leroy, son; Pt is legally from but is still covered by her insurance. Living Arrangements: Pt lives with sig other in 2 story duplex with some stairs and states no concerns at home. Pt is independent with ADL's. Transportation: Pt drives self and states no transportation concerns. DME/HHC: Pt has a cane and walker at home but does not use. Pt states no need for any further DME. Pt states no hx of HHC or SNF in the past. Pt states no concerns with going home at time of discharge. Pt works time buyer. Pt states smokes an occasional cigar and rarely drinks ETOH. Pt states no further concerns/needs. CM to follow for any further discharge planning/needs. Advised pt to ask for CM if any further questions/concerns/needs arise, voices understanding. Pt Goal: Home Plan[place] JESÚS MIRANDA
--- NOTE | 2021-12-24 11:35 | NURSING ---
mechanical shop laborer JESÚS Carmona to floor to get pt for cardioversion. Report given.
--- NOTE | 2021-12-24 12:28 | PCM.OP.BLANK ---
Problems Associated Problem List Diagnoses (1) Atrial flutter with rapid ventricular response: Operative Report Date of Procedure: 12/24/21 DC cardioversion. 51-year-old man with a history of atrial flutter, hypertension, coronary disease. Patient presented with symptomatic atrial flutter. Patient has been on anticoagulation. Patient was seen by Dr. Negrete of the critical care division. Informed consent was obtained. Anterior-posterior pads were applied. The patient was then administered 60 mg of intravenous propofol. 200 J of biphasic DC cardioversion energy were applied with prompt reversal to sinus rhythm. Patient tolerated the procedure well. Conclusion: Successful DC cardioversion from atrial flutter to sinus rhythm. Continue current medications. We will resume patient's diltiazem. The patient appears to think that it was after this change was made that he started having recurrent atrial flutter. We will also continue losartan at 50 mg We will also continue beta-keith at the same dose.
--- NOTE | 2021-12-24 12:42 | PCM.DC ---
Discharge Instructions Diet Discharge Diet: Low fat / Low cholesterol and 2000 mg Sodium Diet Activity Discharge Activity: Return to Normal Activity Follow Up Care Test Results: Test results from this visit will be discussed in further detail at your follow-up appointment, if applicable. Discharge Plan Admission Admit Date/Time: 12/23/21 22:19 Primary Reason for Your Visit: Atrial flutter with RVR Attending Provider: Liliya Hendricks Consulting Providers: Petra Alfonso Instructions Additional Instructions / Restrictions: Take note of changes to your medications. Follow-up with cardiology in the outpatient as scheduled. Discharge Orders/Prescriptions Prescriptions: Continued losartan 50 mg tablet 50 mg PO BID Qty: 180 RF: 3 metformin 500 mg tablet 500 mg PO BID Qty: 60 RF: 0 potassium chloride tablet 20 meq PO/SL DAILY RF: 0 Eliquis 5 mg tablet 5 mg PO BID Qty: 180 RF: 3 atorvastatin 80 mg tablet 80 mg PO QHS Qty: 90 RF: 3 clopidogrel 75 mg tablet 75 mg PO DAILY Qty: 90 RF: 3 diltiazem HCl [Cardizem CD] 240 mg capsule,extended release 24hr 240 mg PO DAILY Qty: 90 RF: 3 hydrochlorothiazide 25 mg tablet 25 mg PO DAILY Qty: 90 RF: 3 metoprolol succinate 50 mg tablet extended release 24 hr 50 mg PO BID Qty: 180 RF: 3 Referrals / Follow Up: Mikhail Loredo [Other] Kris Barroso MD [STAFF PHYSICIAN] - Within 2 Weeks Disposition Disposition (needs filled in before D/C Order can be placed): Home, Self Care
--- NOTE | 2021-12-24 12:47 | PCM.DC.SUM ---
Providers Date of Admission: 12/23/21 Date of Discharge: 12/24/21 Primary Care Physician: Mikhail Loredo Consultations 12/23/21 23:26 Consult: Cardiology Routine Consulting Provider: Petra Alfonso Reason for Consult: Aflutter; consider other interventions EMERGENT Consult: No MD Notified: Yes Date Notified: 12/24/21 Time Notified: 07:10 Method of Notification: Text Reason For Visit: AFIB WITH RVR Diagnosis Discharge Diagnosis (1) Atrial flutter with rapid ventricular response: Status: Acute Code(s): I48.92 - Unspecified atrial flutter Medications at Discharge Home Medications metformin 500 mg PO BID #60 tab 05/23/21 apixaban 5 mg tablet 5 mg PO BID #180 tab 06/21/21 atorvastatin 80 mg tablet 80 mg PO QHS #90 tab 06/21/21 clopidogrel 75 mg tablet 75 mg PO DAILY #90 tab 06/21/21 diltiazem HCl 240 mg capsule,extended release 24 hr 240 mg PO DAILY #90 cap 06/21/21 hydrochlorothiazide 25 mg tablet 25 mg PO DAILY #90 tab 06/21/21 metoprolol succinate 50 mg tablet,extended release 24 hr 50 mg PO BID #180 tab 06/21/21 losartan 50 mg tablet 50 mg PO BID #180 tab 12/04/21 potassium chloride 20 meq PO/SL DAILY 12/24/21 potassium chloride [Klor-Con M20] 20 meq PO DAILY 2 Days #2 tab 12/24/21 Hospital Course Operations None Procedures Cardioversion (12/24/21) Summary of Care Provided Minutes Spent on Discharge: 40 Hospital Course: 51-year-old male with past medical history of hypertension, type II DM, morbid obesity, CAD status post CABG, status post stent who presented to the ED with palpitations. He he was found to have A. fib with RVR. He was given Cardizem bolus, and maintained on Cardizem drip. Patient remained in A. fib with RVR the next day. He had hypomagnesemia and hypokalemia that were corrected. Cardiology was consulted. He underwent cardioversion 12/22/21 with successful conversion to normal sinus rhythm. Patient was discharged home on Cardizem, metoprolol and losartan. Follow-up with cardiology in 2 weeks. On the day of discharge, patient was seen and examined. Denied any new complaints. No SOB, chest pain. Physical Exam Narrative Physical exam: General: Alert, Oriented x3, Cooperative, No apparent distress, Well developed, morbidly obese HEENT: Atraumatic Oral: Moist Mucosa Neck: Supple Lungs: Clear to auscultation Cardiovascular: HS I+II, irregular, no murmurs Abdomen: Bowel Sounds Present, Soft, Non Tender Extremities: No edema Weight / BMI Weight Weight: 154 kg Body Mass Index (BMI) 53.1 ABG / Lab / Microbiology Data Result Diagrams: 12/24/21 Unknown 12/24/21 Unknown Laboratory: Laboratory Results - last 24 hr 12/23/21 21:27: WBC 9.3, RBC 5.07, Hgb 15.2, Hct 44.0, MCV 86.8, MCH 30.0, MCHC 34.5, RDW Std Deviation 44.1 H, RDW Coeff of Jolanta 14.1, Plt Count 302, MPV 10.2, Immature Gran % (Auto) 0.200, Neut % (Auto) 67.0, Lymph % (Auto) 19.6, [place] % (Auto) 10.4 H, Eos % (Auto) 2.4, Baso % (Auto) 0.4, Absolute Neuts (auto) 6.3, Absolute Lymphs (auto) 1.83, Nucleated RBC % 0 12/23/21 21:27: Sodium 140, Potassium 3.3 L, Chloride 105, Carbon Dioxide 29.0, Anion Gap 6, BUN 19 H, Creatinine 1.21, Estim Creat Clear Calc 65.91, Est GFR (MDRD) Af Amer 81, Est GFR (MDRD) Non-Af 67, BUN/Creatinine Ratio 15.7, Glucose 144 H, Calcium 9.7, Troponin I High Sens 37 12/23/21 21:27: Magnesium 1.8 12/24/21 06:40: POC Glucose 148 H 12/24/21 11:12: POC Glucose 133 H 12/24/21 : WBC 9.2, RBC 4.86, Hgb 14.4, Hct 42.3, MCV 87.0, MCH 29.6, MCHC 34.0, RDW Std Deviation 44.8 H, RDW Coeff of Jolanta 14.2, Plt Count 290, MPV 10.3, Immature Gran % (Auto) 0.200, Neut % (Auto) 67.9, Lymph % (Auto) 19.8, [place] % (Auto) 8.9, Eos % (Auto) 2.7, Baso % (Auto) 0.5, Absolute Neuts (auto) 6.3, Absolute Lymphs (auto) 1.82, Nucleated RBC % 0 12/24/21 : Sodium 139, Potassium 3.3 L, Chloride 103, Carbon Dioxide 28.0, Anion Gap 8, BUN 19 H, Creatinine 0.96, Estim Creat Clear Calc 86.07, Est GFR (MDRD) Af Amer 106, Est GFR (MDRD) Non-Af 87, BUN/Creatinine Ratio 19.7, Glucose 145 H, Calcium 9.3, TSH 2.29 12/24/21 : Troponin I High Sens 36 Radiography Diagnostic Testing: Radiology Impression Chest X-Ray 12/23/21 21:35 IMPRESSION: No acute radiographic abnormalities. Electronically Signed: aSnket Woodruff MD at 23:24 EST , D/C Instructions Discharge Diet: Low fat / Low cholesterol and 2000 mg Sodium Diet Meaningful Use Info Meaningful Use Diagnoses (Choose all that apply): None applicable Discharge Plan Admission Admit Date/Time: 12/23/21 22:19 Primary Reason for Your Visit: Atrial flutter with RVR Attending Provider: Liliya Hendricks Consulting Providers: Petra Alfonso Instructions Additional Instructions / Restrictions: Take note of changes to your medications. Follow-up with cardiology in the outpatient as scheduled. Discharge Orders/Prescriptions Prescriptions: New potassium chloride [Klor-Con M20] 20 mEq tablet,ER particles/crystals 20 meq PO DAILY 2 Days Qty: 2 RF: 0 Continued losartan 50 mg tablet 50 mg PO BID Qty: 180 RF: 3 metformin 500 mg tablet 500 mg PO BID Qty: 60 RF: 0 potassium chloride tablet 20 meq PO/SL DAILY RF: 0 Eliquis 5 mg tablet 5 mg PO BID Qty: 180 RF: 3 atorvastatin 80 mg tablet 80 mg PO QHS Qty: 90 RF: 3 clopidogrel 75 mg tablet 75 mg PO DAILY Qty: 90 RF: 3 diltiazem HCl [Cardizem CD] 240 mg capsule,extended release 24hr 240 mg PO DAILY Qty: 90 RF: 3 hydrochlorothiazide 25 mg tablet 25 mg PO DAILY Qty: 90 RF: 3 metoprolol succinate 50 mg tablet extended release 24 hr 50 mg PO BID Qty: 180 RF: 3 Referrals / Follow Up: Mikhail Loredo [Other] Kris Barroso MD [STAFF PHYSICIAN] - Within 2 Weeks Disposition Disposition (needs filled in before D/C Order can be placed): Home, Self Care Charges/Coding Visit Charges Inpatient E&M: 60877 Disch Hosp
[2021-12-24] MEDS: hydroCHLOROthiazide 25 MG Tablet PO (13:12)
[2021-12-24] MEDS: Losartan Potassium 50 MG Tablet PO (13:12)
--- NOTE | 2021-12-24 13:40 | PRO.PCM_ITS ---
Assessment & Plan Assessment/Plan (1) Atrial flutter with rapid ventricular response: (2) History of non-ST elevation myocardial infarction (NSTEMI): (3) H/O coronary artery bypass surgery: (4) Morbid obesity: Procedure Report Date of Procedure: 12/24/21 CONSCIOUS SEDATION REPORT BRIEF HISTORY OF PRESENT ILLNESS: The patient is a 51-year-old male who presented to [facility] for shortness of breath and was found to be in a flutter with rapid response. The patient reports no PO intake since midnight, but is currently therapeutic on anticoagulation. The patient does not have a history of VIANEY, but admits he has never been tested. The patient reports a history of smoking, but denies COPD. The patient denies any recent constitutional symptoms such as fevers, chills, nausea or vomiting. The patient denies previous applicable anesthetic complications. PHYSICAL EXAMINATION: VITAL SIGNS: Reviewed and were acceptable. GENERAL: The patient is a male, in no apparent distress, speaking in full sentences. HEENT: Normocephalic, atraumatic. Mucous membranes are moist and pink. Good mouth opening noted. Trachea is midline. Good neck mobility. MP IV CHEST: S1, S2 irregularly irregular. No murmurs, rubs or gallops were noted. LUNGS: Clear to auscultation bilaterally without appreciable wheezes, rales or rhonchi. ABDOMEN: Soft, nontender, nondistended. Positive bowel sounds. EXTREMITIES: There is no clubbing, cyanosis or edema. ASA Class: II DESCRIPTION OF PROCEDURE: After confirmation of informed consent, the patient's anesthesia plan was reviewed in detail. Propofol was chosen. Risks and benefits were reviewed and the patient agreed to proceed. At 12:16 PM, the patient was given 40 mg of propofol. The patient required a total of 60 mg of propofol throughout the procedure to achieve appropriate sedation. The patient achieved an appropriate level of sedation and received 1 attempt synchronized cardioversion, at [address] Barroso at the bedside. This was successful in achieving normal sinus rhythm. The patient was monitored until 12:30 PM, at which time the patient reached their baseline mental status and function. The patient tolerated the procedure well. COMPLICATIONS: None ESTIMATED BLOOD LOSS: None RECOMMENDATIONS: Okay to recover in usual fashion. Procedures Pulmonary 9xxxx: [id number] Con Sedation
--- NOTE | 2021-12-24 14:05 | CASEMGMT ---
Per RN CM patient would like to complete advance directives. SW met with patient and his significant other. They said now is not a good time as he is having some medical problems. The RN is aware. SW will check back. Ligia MUNOZ
[2021-12-24] MEDS: Morphine 2 MG/ML Syringe IV (14:18)
[2021-12-24] MEDS: Acetaminophen 325 MG Tablet 650 MG PO (15:05)
--- NOTE | 2021-12-24 15:38 | CASEMGMT ---
SW was able to complete Healthcare Power of Technical Instructor Course Developer papers with patient. Copies were made and given to patient along with original. A copy was also placed in patient's chart. Ligia MUNOZ
--- NOTE | 2021-12-24 15:40 | NURSING ---
Pt walked in hallway without difficulty. Reports feeling anxious.
[2021-12-24 16:10] LABS: Bedside Glucose 168 mg/dL (70-110)
[2021-12-24] MEDS: LORazepam 0.5 MG Tablet PO (16:22)
== END 2021-12-24 17:22 | disposition home or self-care (01) | DRG 309 ==
LOC: ED 22:13 → PCU 12-24 07:09
PROVIDERS: Admitting Provider Hospitalist; Emergency Provider Emergency Medicine; Visit Provider Internal Medicine
DX: I48.92 Unspecified atrial flutter (principal); Z68.43 Body mass index [BMI] 50.0-59.9, adult; Z95.1 Presence of aortocoronary bypass graft; E11.9 Type 2 diabetes mellitus without complications; I48.91 Unspecified atrial fibrillation; E66.01 Morbid (severe) obesity due to excess calories; I10 Essential (primary) hypertension; E78.5 Hyperlipidemia, unspecified; I25.10 Atherosclerotic heart disease of native coronary artery without angina pectoris; E78.00 Pure hypercholesterolemia, unspecified; E87.6 Hypokalemia; E83.42 Hypomagnesemia; I25.2 Old myocardial infarction; Z79.84 Long term (current) use of oral hypoglycemic drugs; Z79.01 Long term (current) use of anticoagulants; Z95.5 Presence of coronary angioplasty implant and graft
CPT/HCPCS: 36415; 71045; 80048; 82962; 83735; 84443; 84484; 85025; 92960; 93005; 93306; 99152; 99153; 99285; 99406; Q9957; Q9967; A4216; C8929

== ENCOUNTER → 2024-02-16 | Outpatient (CLI) | payer OTHER, SELFPAY ==
[2024-02-16 09:20] LABS: Absolute Lymphocyte Count 0.92 X10^3/uL (0.83-4.51); Basophil# 0.06 X10^3/uL; Basophil% 0.8 % (0-1); Eosinophils% 3.8 % (0-5); Hemoglobin 14.1 g/dL (13.0-16.5); Lymphocyte # 0.92 X10^3/ul (0.83-4.51); Lymphocyte % 11.6 % (19-41); Mean Corp Hgb Conc 33.6 g/dL (32-36); Mean Corpuscular Hgb 29.1 pg (27.0-32.0); Mean Corpuscular Volume 86.8 fL (80-94); Mean Platelet Vol. 10.1 fl (6.2-12.0); Monocyte% 7.6 % (0-10); NRBC Flagged by Analyzer 0 % (0-5); Neutrophil # 6.04 X10^3/uL (2.7-7.7); Neutrophil % 76.1 % (47-70); Platelet Count 321 K/mm3 (150-450); RBC Distribution Width CV 14.5 % (11.6-14.6); RBC Distribution Width SD 46.2 fl (35.1-43.9); Red Blood Count 4.84 M/mm3 (4.6-6.2); White Blood Count 7.9 K/mm3 (4.4-11.0)
[2024-02-16 09:50] LABS: Vitamin D,25 Hydroxy 23.7 ng/mL
[2024-02-16 10:37] LABS: ALB/GLOB Ratio 0.6 RATIO (0.9-2.4); AST(SGOT) 25 U/L (15-37); Alanine Aminotransfer ALT/SGPT 37 U/L (16-61); Albumin, Serum 3.1 g/dL (3.2-5.0); Alkaline Phosphatase 95 U/L (45-117); Anion Gap 6 (5-15); BUN 14 mg/dL (7-18); BUN/Creat Ratio 12.8 RATIO (10-20); Bilirubin, Direct 0.14 mg/dL (0.00-0.30); Chloride 104 mmol/L (98-107); Cholesterol 123 mg/dL (200); Creatinine, Serum 1.09 mg/dL (0.70-1.30); EST Glomerular Filtration Rate 75 mL/min (>60); Est Glom Filt Rate - Afr Amer 91 mL/min (>60); Globulin 5.1 g/dL (2.2-4.2); Glucose 155 mg/dL (74-106); High Density Lipoprotein 28 mg/dL; Potassium 3.7 mmol/L (3.5-5.1); Protein, Total 8.2 g/dL (6.4-8.2); Sodium Level 137 mmol/L (136-145); Thyroid Stim Hormone (TSH) 1.37 uIU/mL (0.358-3.74); Triglycerides 135 mg/dL; Very Low Density Lipoprotein 27 mg/dL (5-40)
== END | disposition home or self-care (01) ==
LOC: LAB 08:46
PROVIDERS: PCP Internal Medicine; Referring Provider Nurse Practitioner Gerontology; Visit Provider Nurse Practitioner Gerontology
DX: R53.83 Other fatigue (principal); E78.5 Hyperlipidemia, unspecified
CPT/HCPCS: 36415; 80053; 80061; 82248; 82306; 84443; 85025

== ENCOUNTER → 2024-12-24 | Outpatient (CLI) | payer OTHER, SELFPAY ==
[2024-12-24 09:12] LABS: AST(SGOT) 23 U/L (<=37); Alanine Aminotransfer ALT/SGPT 23 U/L (<=46); Albumin, Serum 3.6 g/dL (3.5-5.0); Alkaline Phosphatase 99 U/L (40-129); Bilirubin, Direct 0.13 mg/dL (0.00-0.30); Cholesterol 130 mg/dL (<=200); Globulin 4.2 g/dL (2.2-4.2); High Density Lipoprotein 33 mg/dL; Low Density Lipoprotein Calc. 69 mg/dL; Protein, Total 7.8 g/dL (5.9-8.4); Triglycerides 140 mg/dL; Very Low Density Lipoprotein 28 mg/dL (5-40); cholesterol:hdl ratio screen 3.94
== END | disposition home or self-care (01) ==
LOC: LAB 07:56
PROVIDERS: PCP Internal Medicine; Referring Provider Nurse Practitioner Family; Visit Provider Nurse Practitioner Family
DX: I25.10 Atherosclerotic heart disease of native coronary artery without angina pectoris (principal); E78.5 Hyperlipidemia, unspecified
CPT/HCPCS: 36415; 80061; 80076